=== PATIENT | female | born 1960 | race Caucasian/White ===

== ENCOUNTER 2018-12-12 09:58 | Inpatient (IN) | payer OTHER ==
--- NOTE | 2018-12-12 10:39 | PDOC ---
History of Present Illness - General Chief Complaint: Wound Stated Complaint: MRSA Time Seen by Provider: 12/12/18 10:27 - History of Present Illness Initial Comments: 12/12/18 10:35 58 yo F DM, Obesity, who p/w right lower leg wound. Patient reports 2 weeks of progressive, enlarging right reis wound, with absent drainage or discharge. Wound started off as "knick," and progressed to quarter size. Patient also endorses sharp pain at wound site, worse with touch. Patient following with Dr. Becerril for chronic non healing venous stasis ulcer. Referred to ED today for IV antibiotics following failed outpt. management, Patient with home Levaquin (). last dose 12/09/18. Bactroban to RLE BID. MRSA from RLE wound (12/05/18 ) with sensitivities to Daptomycin, Clindamycin, Vancomycin. Patient denies GIBBONS, vision change, palpitations, cough, wheezing, orthopena, PND , N/V, F,C, CP, SOB, urinary complaints, hematuria, BPR, abdominal pain, diarrhea, constipation, lightheadedness, weakness, sensory changes. PMHx: as noted above ROS: as noted SHx: Marijuanna once a day. Denies Etoh, IVDA, tobacco use Allergies: NKDA PMD: Dr. Jermaine Velasco Vascular: Dr. Becerril Past History - Past Medical History Allergies/Adverse Reactions: Allergies Allergy/AdvReac Type Severity Reaction Status Date / Time adhesive tape AdvReac Intermediate Hives Verified 12/12/18 10:04 Home Medications: Ambulatory Orders Atorvastatin Ca 1 tab PO HS 04/10/16 Calcium Magnesium + D Tablet 1 tab PO DAILY 04/10/16 Enalapril Maleate 5 mg PO DAILY 04/10/16 Furosemide 40 mg PO BID 04/10/16 Metformin HCl 500 mg PO BID 04/10/16 Multivitamin 1 tab PO DAILY 04/10/16 Mupirocin Cream [Bactroban 2% Cream -] 1 applic TP BID #1 tube 12/05/18 Gabapentin [Neurontin -] 300 mg PO TID 12/09/18 Insulin Lispro Protamin/Lispro [Humalog Mix 75-25 Kwikpen] 50 unit SQ BID Magnesium Oxide [Magnesium] 400 mg PO ASDIR 12/12/18 Mv-Min/FA/Vit K/Lycop/Lut/Zeax [Ocuvite Eye + Multi Tablet] 1 each PO ASDIR 01/23 [place]-3S/Dha/Epa/Fish Oil/D3 [[place]-3 + D Softgel] 1 each PO DAILY 12/12/18 COPD: No Diabetes: Yes Hypercholesterolemia: Yes Other medical history: morbid obese - Suicide/Smoking/Psychosocial Hx Smoking History: Never smoked Have you smoked in the past 12 months: No Hx Alcohol Use: No Drug/Substance Use Hx: Yes (marijuana) Review of Systems - Review of Systems Comments:: 12/12/18 10:36 GENERAL/CONSTITUTIONAL: No fever or chills. No weakness. HEAD, EYES, EARS, NOSE AND THROAT: No change in vision. No ear pain or discharge. No sore throat. CARDIOVASCULAR: No chest pain or shortness of breath RESPIRATORY: No cough, wheezing, or hemoptysis. GASTROINTESTINAL: No nausea, vomiting, diarrhea or constipation. GENITOURINARY: No dysuria, frequency, or change in urination. MUSCULOSKELETAL: No joint or muscle swelling or pain. No neck or back pain. SKIN: + r leg wound and pain NEUROLOGIC: No headache, vertigo, loss of consciousness, or change in strength/ sensation. ENDOCRINE: No increased thirst. No abnormal weight change HEMATOLOGIC/LYMPHATIC: No anemia, easy bleeding, or history of blood clots. ALLERGIC/IMMUNOLOGIC: No hives or skin allergy. *Physical Exam - Vital Signs Last Vital Signs Temp Pulse Resp BP Pulse Ox 98.2 F 64 18 135/62 97 12/12/18 10:01 12/12/18 10:01 12/12/18 10:01 12/12/18 10:01 12/12/18 10:01 - Physical Exam Comments: 12/12/18 10:36 GENERAL: Awake, alert, and fully oriented, in no acute distress HEAD: No signs of trauma, normocephalic, atraumatic EYES: PERRLA, EOMI, sclera anicteric, conjunctiva clear ENT: Auricles normal inspection, hearing grossly normal, nares patent, oropharynx clear without exudates. Moist mucosa NECK: Normal ROM, supple, no lymphadenopathy, JVD, or masses LUNGS: No distress, speaks full sentences, clear to auscultation bilaterally HEART: Regular rate and rhythm, normal S1 and S2, no murmurs, rubs or gallops, peripheral pulses normal and equal bilaterally. ABDOMEN: Soft, nontender, normoactive bowel sounds. No guarding, no rebound. No masses EXTREMITIES : Normal inspection, Normal range of motion, no edema. No clubbing or cyanosis. NEUROLOGICAL: Cranial nerves II through XII grossly intact. Normal speech, normal gait, no focal sensorimotor deficits SKIN: + superficial 2 x 4 Right anterior tib/fib lesion, with absent subcutaneous involvement, undermining, tunneling of margins. + surrounding erythema, with warmth, and ttp. Asbent fluctuance, drainage, discharge, crepitus, streaking. Skin otherwise warm, Dry, normal turgor, no rashes or lesions noted ED Treatment Course - LABORATORY CBC & Chemistry Diagram: 12/14/18 06:40 12/14/18 06:40 Medical Decision Making - Medical Decision Making 12/12/18 10:48 58 yo F DM, Obesity, who p/w right lower leg wound. Vitals wnl, AF, A&Ox3. 0/4 SIRS criteria. Patient with non healing RLE wound, failed outpt. antibiotics, MRSA. Physical exam notable for + superficial 2 x 4 Right anterior tib/fib lesion, with absent subcutaneous involvement, undermining, tunneling of margins. + surrounding erythema, with warmth, and ttp. Neg streaking. no evidence lymhangitic spread. RLE neurovascularly intact. Will assess for nec fasc., osteomyelitis, gangrene, abscess. +. Patient will likely require admission for wound with surrounding cellulitis and h/o DM, failed outpt. management. Ed Course: 12/12/18 13:03 Laboratory Tests 12/12/18 12/12/18 11:45 11:45 WBC 9.4 Hgb 13.2 Hct 39.8 Plt Count 274 Sodium 145 Potassium 4.0 Anion Gap 6 L BUN 13.7 Creatinine 0.6 Random Glucose 73 L Vanc/Zosyn Patient endorsed to Dr. Crump 12/12/18 13:26 Patient endorsed and admitted to Dr. Vicky velasco. *DC/Admit/Observation/Transfer Diagnosis at time of Disposition: Venous stasis ulcer Non-healing wound of lower extremity Qualifiers: Encounter type: initial encounter Laterality: right Qualified Code(s): S81.801A - Unspecified open wound, right lower leg, initial encounter - Discharge Dispostion Condition at time of disposition: Stable Decision to Admit order: Yes - Referrals - Patient Instructions - Post Discharge Activity
--- NOTE | 2018-12-12 12:15 | PDOC ---
Documentation entered by Merlene Boothe SCRIBE, acting as scribe for Terry Patino MD. Terry Patino MD: This documentation has been prepared by the scribe, Merlene Boothe SCRIBE, under my direction and personally reviewed by me in its entirety. I confirm that the documentation accurately reflects all work, treatment, procedures, and medical decision making performed by me. Attending Attestation - Resident Resident Name: Reggie Morrissey - ED Attending Attestation I have performed the following: I have examined & evaluated the patient, The case was reviewed & discussed with the resident, I agree w/resident's findings & plan, Exceptions are as noted - HPI HPI: 12/12/18 11:48 The patient is a 58-year-old female, with a past medical history of DM and morbid obesity, who presents to the ED with a chronic nonhealing venous stasis ulcer to the RT lower anterior leg. The patient has been following up [facility]. Wound cultures taken on 12/05 were +MRSA and showed sensitivity to Daptomycin, Clindamycin, and Vancomycin. Patient was placed on a course of Levaquin and has been applying Bactroban to the wound. The patient was seen in Dr. Resendiz office today and was sent to the ED for admission for IV antibiotics. Patient states that the wound started off as a knick and has been growing in size over the past 2 weeks. The patient denies fevers, chills, nausea, vomiting, diarrhea, or abdominal pain. Denies any chest pain, palpitations or shortness of breath. Denies any weakness, dizziness, or changes in strength or sensation. Allergies: NKDA, adhesive tape. Social History: Reports daily marijuana use. Denies any tobacco, alcohol, or drug use. Surgical History: None reported. PCP: Dr. Jermaine Velasco Vascular: Dr. Becerril - Physicial Exam PE: 12/13/18 14:42 see above - Medical Decision Making 12/12/18 11:56 58y F hx of morbid obesity, dm, presents with worsening pain and non healing wound on the R reis sp minor trauma, has been evaluated by wound care and sent to the ED for further evaluation and possible admission for iv abx and failure of out patient mangaement. Pt denies any fever/chills, nv, abd pain, cp, sob, lightheadedness. on exam: GENERAL: The patient is awake, alert, and fully oriented, Nontoxic - in no acute distress. morbidly obese HEAD: Normocephalic, atraumatic. EYES: extraocular movements intact, sclera anicteric, conjunctiva clear. ENT: Normal voice, Moist mucous membranes. NECK: Normal range of motion, supple ABDOMEN: Soft, nontender, No guarding, no rebound. No CVA tenderness EXTREMITIES: Normal range of motion, +erythema anterior reis and ttp with surrounding induration, no streaking proximally NEUROLOGICAL: No facial assymetry, Normal speech, PSYCH: Normal mood, normal affect. SKIN: Warm, Dry, normal turgor, will obtain labs/cultures tibfib xray to ro osteo will consult loretta per dr. resendiz request will admit for iv abx and failure of outptient tx Heart Score/ECG Review - ECG Impressions Comment:: 12/12/18 13:56 Twelve-lead EKG was performed and reviewed by me. There is normal sinus rhythm with a normal rate. rate of 60 The axis is normal. The intervals are normal. abnormal R wave progression
[2018-12-12 12:16] LABS: BASO % 0.6 % (0-2.0); EOS % 1.5 % (0-4.5); HEMATOCRIT 39.8 % (32.4-45.2); HEMOGLOBIN 13.2 GM/dL (10.7-15.3); MCH 29.7 pg (25.7-33.7); MCHC 33.3 g/dl (32.0-36.0); MEAN CELL VOLUME 89.4 fl (80-96); MONO % 7.8 % (3.8-10.2); NEUT % 69.1 % (42.8-82.8); PLATELET COUNT 274 K/MM3 (134-434); RBC 4.46 M/mm3 (3.60-5.2); RDW 13.9 % (11.6-15.6); WHITE BLOOD COUNT 9.4 K/mm3 (4.0-10.0)
[2018-12-12 12:26] LABS: INR 1.01 (0.83-1.09); PROTHROMBIN TIME (PATIENT) 11.9 SEC (9.7-13.0)
[2018-12-12 12:46] LABS: ALBUMIN 3.3 g/dl (3.4-5.0); BILIRUBIN,TOTAL 0.3 mg/dL (0.2-1); BLOOD UREA NITROGEN 13.7 mg/dL (7-18); CALCIUM 8.7 mg/dL (8.5-10.1); CREATININE 0.6 mg/dL (0.55-1.3); TOT PROT 6.6 g/dl (6.4-8.2)
[2018-12-12] MEDS ORDERED: PIPERACILLIN/TAZOB 4.5 GM 4.5 GM in DEXTROSE 5%-WATER 100 ML IVPB ONE (13:03)
[2018-12-12] MEDS ORDERED: VANCOMYCIN 1 GM in D5W (PRE-DOCKED) 1,000 MG/250 ML IVPB ONE (13:03)
[2018-12-12] MEDS ORDERED: PIPERACILLIN/TAZOB 4.5 GM 4.5 GM/100 ML BAG IVPB ONE (13:12)
[2018-12-12] MEDS ORDERED: VANCOMYCIN 1 GRAM (PRE-DOCKED) 1,000 MG/250 ML BAG IVPB ONE (13:12)
--- NOTE | 2018-12-12 13:20 | CON.ID ---
Consult Consult Specialty:: infectious diseases Referred by:: dr cotto Reason for Consultation:: non healing ulcer of the leg,with cellulitis and swelling - History of Present Illness Chief Complaint: pain and swelling of the leg History of Present Illness: 58 yo F DM, Obesity, who p/w right lower leg wound. Patient reports 2 weeks of progressive, enlarging right reis wound, with absent drainage or discharge. Wound started off as "knick," and progressed to quarter size. Patient also endorses sharp pain at wound site, worse with touch. Patient following with Dr. Cotto for chronic non healing venous stasis ulcer. Referred to ED today for IV antibiotics following failed outpt. management, Patient with home Levaquin (). last dose 12/09/18. Bactroban to RLE BID. MRSA from RLE wound (12/05/18 ) patient has compromised leg and is morbidly obese - History Source History Provided By: Patient Limitations to Obtaining History: No Limitations - Alcohol/Substance Use Hx Alcohol Use: No - Smoking History Smoking history: Never smoked Have you smoked in the past 12 months: No Home Medications - Allergies Allergies/Adverse Reactions: Allergies Allergy/AdvReac Type Severity Reaction Status Date / Time adhesive tape AdvReac Intermediate Hives Verified 12/12/18 10:04 - Home Medications Home Medications: Ambulatory Orders Atorvastatin Ca 1 tab PO HS 04/10/16 Calcium Magnesium + D Tablet 1 tab PO DAILY 04/10/16 Enalapril Maleate 5 mg PO DAILY 04/10/16 Furosemide 40 mg PO BID 04/10/16 Metformin HCl 500 mg PO BID 04/10/16 Multivitamin 1 tab PO DAILY 04/10/16 Mupirocin Cream [Bactroban 2% Cream -] 1 applic TP BID #1 tube 12/05/18 Gabapentin [Neurontin -] 300 mg PO TID 12/09/18 Insulin Lispro Protamin/Lispro [Humalog Mix 75-25 Kwikpen] 50 unit SQ BID Magnesium Oxide [Magnesium] 400 mg PO ASDIR 12/12/18 Mv-Min/FA/Vit K/Lycop/Lut/Zeax [Ocuvite Eye + Multi Tablet] 1 each PO ASDIR 01/23 [place]-3S/Dha/Epa/Fish Oil/D3 [[place]-3 + D Softgel] 1 each PO DAILY 12/12/18 Review of Systems - Review of Systems Constitutional: reports: No Symptoms Eyes: reports: No Symptoms HENT: reports: No Symptoms Neck: reports: No Symptoms Cardiovascular: reports: No Symptoms Respiratory: reports: No Symptoms Gastrointestinal: reports: No Symptoms Genitourinary: reports: No Symptoms Musculoskeletal: reports: No Symptoms Integumentary: reports: Change in Color, Erythema, Wound Neurological: reports: No Symptoms Endocrine: reports: No Symptoms Hematology/Lymphatic: reports: No Symptoms Psychiatric: reports: No Symptoms Physical Exam Vital Signs: Vital Signs Temperature 98.2 F 12/12/18 10:01 Pulse Rate 64 12/12/18 10:01 Respiratory Rate 18 12/12/18 10:01 Blood Pressure 135/62 12/12/18 10:01 O2 Sat by Pulse Oximetry (%) 97 12/12/18 10:01 Constitutional: Yes: Well Nourished, Calm, Mild Distress, Obese Cardiovascular: Yes: Regular Rate and Rhythm Respiratory: Yes: Regular, CTA Bilaterally Gastrointestinal: Yes: Normal Bowel Sounds, Soft Musculoskeletal: Yes: WNL Extremities: Yes: Other (wound preent) Integumentary: Yes: Erythema, Other Wound/Incision: Yes: Open to air Neurological: Yes: Alert, Oriented Psychiatric: Yes: Alert, Oriented Labs: CBC, BMP 12/12/18 11:45 12/12/18 11:45 Imaging - Results Chest X-ray: Report Reviewed, Image Reviewed X-ray: Report Reviewed, Image Reviewed Assessment/Plan Problem List - Problems (1) Diabetic leg 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 Code(s): E10.622 - TYPE 1 DIABETES MELLITUS WITH OTHER SKIN ULCER; L97.909 - NON -PRS CHRONIC ULC UNSP PRT OF UNSP LOW LEG W UNSP SEVERITY (2) Insulin dependent diabetes mellitus Code(s): E11.9 - TYPE 2 DIABETES MELLITUS WITHOUT COMPLICATIONS; Z79.4 - DATA SUPPORT SPECIALIST (CURRENT) USE OF INSULIN (3) Morbid obesity Code(s): E66.01 - MORBID (SEVERE) OBESITY DUE TO EXCESS CALORIES (4) Osteoarthritis of knees, bilateral Code(s): M17.0 - BILATERAL PRIMARY OSTEOARTHRITIS OF KNEE patients cx reports noted i am going to start patient on vanc and zosyn might stop the zosyn tomorrow wound care rest as per the team
--- NOTE | 2018-12-12 16:06 | HP ---
Admitting History and Physical - Primary Care Physician PCP: Jermaine Velasco - Admission History of Present Illness: Pt seen/ examined Well known to me Was send to Wound care by me form office . +ve MRSA wound cultures Failed out pt therapy NOw admitted for i/v abx Discussed with er resident and I also concur with er Documentation as below 58 yo F DM, Obesity, who p/w right lower leg wound. Patient reports 2 weeks of progressive, enlarging right reis wound, with absent drainage or discharge. Wound started off as "knick," and progressed to quarter size. Patient also endorses sharp pain at wound site, worse with touch. Patient following with Dr. Becerril for chronic non healing venous stasis ulcer. Referred to ED today for IV antibiotics following failed outpt. management, Patient with home Levaquin (). last dose 12/09/18. Bactroban to RLE BID. MRSA from RLE wound (12/05/18 ) with sensitivities to Daptomycin, Clindamycin, Vancomycin. Patient denies GIBBONS, vision change, palpitations, cough, wheezing, orthopena, PND , N/V, F,C, CP, SOB, urinary complaints, hematuria, BPR, abdominal pain, diarrhea, constipation, lightheadedness, weakness, sensory changes. History Source: Patient Limitations to Obtaining History: No Limitations - Past Medical History [employer]: Yes: Other (morbid obesity) Musculoskeletal: Yes: Osteoarthritis (knees) Endocrine: Yes: Diabetes Mellitus - Smoking History Smoking history: Never smoked Have you smoked in the past 12 months: No - Alcohol/Substance Use Hx Alcohol Use: No History of Substance Use: reports: Marijuana (smokes daily) - Social History ADL: Independent Home Medications - Allergies Allergies/Adverse Reactions: Allergies Allergy/AdvReac Type Severity Reaction Status Date / Time adhesive tape AdvReac Intermediate Hives Verified 12/12/18 10:04 - Home Medications Home Medications: Ambulatory Orders Atorvastatin Ca 1 tab PO HS 04/10/16 Calcium Magnesium + D Tablet 1 tab PO DAILY 04/10/16 Enalapril Maleate 5 mg PO DAILY 04/10/16 Furosemide 40 mg PO BID 04/10/16 Metformin HCl 500 mg PO BID 04/10/16 Multivitamin 1 tab PO DAILY 04/10/16 Mupirocin Cream [Bactroban 2% Cream -] 1 applic TP BID #1 tube 12/05/18 Gabapentin [Neurontin -] 300 mg PO TID 12/09/18 Insulin Lispro Protamin/Lispro [Humalog Mix 75-25 Kwikpen] 50 unit SQ BID Magnesium Oxide [Magnesium] 400 mg PO ASDIR 12/12/18 Mv-Min/FA/Vit K/Lycop/Lut/Zeax [Ocuvite Eye + Multi Tablet] 1 each PO ASDIR 01/23 [place]-3S/Dha/Epa/Fish Oil/D3 [[place]-3 + D Softgel] 1 each PO DAILY 12/12/18 Review of Systems - Review of Systems Constitutional: reports: No Symptoms Eyes: reports: No Symptoms Neck: reports: No Symptoms Cardiovascular: reports: No Symptoms Respiratory: reports: No Symptoms Gastrointestinal: reports: No Symptoms Genitourinary: reports: No Symptoms Musculoskeletal: reports: Extremity Pain, Joint Pain (knees) Neurological: reports: No Symptoms Endocrine: reports: No Symptoms Psychiatric: reports: No Symptoms Pain Intensity: 7 Physical Examination Vital Signs: Vital Signs Temperature 97.7 F 12/12/18 13:58 Pulse Rate 63 12/12/18 13:58 Respiratory Rate 18 12/12/18 13:58 Blood Pressure 128/68 12/12/18 13:58 O2 Sat by Pulse Oximetry (%) 98 12/12/18 13:58 Constitutional: Yes: No Distress, Obese Eyes: Yes: Conjunctiva Clear Cardiovascular: Yes: Regular Rate and Rhythm Respiratory: Yes: CTA Bilaterally Gastrointestinal: Yes: Abdomen, Obese Wound/Incision: Yes: Dressing Dry and Intact Neurological: Yes: Alert Psychiatric: Yes: Alert Labs: CBC, BMP 12/12/18 11:45 12/12/18 11:45 Imaging - Results Chest X-ray: Report Reviewed X-ray: Report Reviewed Problem List - Problems (1) Diabetic leg 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 Code(s): E10.622 - TYPE 1 DIABETES MELLITUS WITH OTHER SKIN ULCER; L97.909 - NON -PRS CHRONIC ULC UNSP PRT OF UNSP LOW LEG W UNSP SEVERITY (2) Insulin dependent diabetes mellitus Code(s): E11.9 - TYPE 2 DIABETES MELLITUS WITHOUT COMPLICATIONS; Z79.4 - PLASMA SPECIALIST (CURRENT) USE OF INSULIN (3) Morbid obesity Code(s): E66.01 - MORBID (SEVERE) OBESITY DUE TO EXCESS CALORIES (4) Osteoarthritis of knees, bilateral Code(s): M17.0 - BILATERAL PRIMARY OSTEOARTHRITIS OF KNEE Assessment/Plan Discussed with Pt Mrsa PRECAUTIONS Abx per i/d local care Discussed with Dr. Becerril also meds orders written monitor bgm. pain control dvt prophylaxis stella order x rays of knees also and consult ortho for knee pain/ arthritis. will follow P. S -- pt has u/s legs 12/09/18 done -- Report still pending -- will request Radiology for report Will follow
[2018-12-12] MEDS: ENALAPRIL MALEATE 5 MG TABLET (FP) PO SCH (17:01)
[2018-12-12] MEDS: CALCIUM 500MG/VIT-D 200 UNITS COMBO TABLET (FP) PO SCH (17:01)
[2018-12-12] MEDS: oxyCODONE HCL 5 MG TABLET PO PRN ×2 (17:02→23:41)
[2018-12-12] MEDS: ACETAMINOPHEN 325 MG TABLET (FP) PO PRN (17:03)
[2018-12-12] MEDS: INSULIN SLIDING SCALE (NOVOLOG) 1 VIAL SQ SCH (17:06)
--- NOTE | 2018-12-12 18:43 | PN ---
Progress Note (short form) - Note Progress Note: Vascular Surgery Pt sent to ER from vascular clinic today. Cx's of her right reis wound showed MRSA. admitted for IV antiobiotics. ID on case. Please place bactroban to wound daily. Toney Becerril DO
[2018-12-12] MEDS: INSULIN (NOVOLOG MIX 70/30) 100 UNITS/ML MDV SQ SCH (21:34)
[2018-12-12] MEDS: ATORVASTATIN CA 10 MG TABLET (FP) PO SCH (21:35)
[2018-12-12] MEDS: GABAPENTIN 300 MG CAPSULE (FP) PO SCH (21:35)
[2018-12-12] MEDS ORDERED: PATIENT'S OWN MEDICATION (NON-FORMULARY) (Insulin Lispro Protamin/Lispro [Humalog Mix 75-2 SQ SCH (22:00)
[2018-12-12] MEDS ORDERED: ATORVASTATIN CA PO SCH (22:00)
[2018-12-12] MEDS: MUPIROCIN CA 2% TOPICAL CREAM 15 GM TUBE TP SCH (23:50)
[2018-12-13] MEDS: GABAPENTIN 300 MG CAPSULE (FP) PO SCH ×3 (05:52→21:40)
[2018-12-13] MEDS: oxyCODONE HCL 5 MG TABLET PO PRN ×2 (05:52→14:05)
[2018-12-13] MEDS: FUROSEMIDE 40 MG TABLET (FP) PO SCH ×2 (05:52→14:05)
[2018-12-13] MEDS: INSULIN SLIDING SCALE (NOVOLOG) 1 VIAL SQ SCH ×2 (06:35→17:23)
[2018-12-13 07:48] LABS: BASO % 0.5 % (0-2.0); EOS % 3.7 % (0-4.5); HEMATOCRIT 38.3 % (32.4-45.2); HEMOGLOBIN 12.6 GM/dL (10.7-15.3); LYMPH % 22.2 % (8-40); MCH 29.8 pg (25.7-33.7); MCHC 32.9 g/dl (32.0-36.0); MEAN CELL VOLUME 90.6 fl (80-96); MONO % 8.1 % (3.8-10.2); NEUT % 65.5 % (42.8-82.8); PLATELET COUNT 253 K/MM3 (134-434); RBC 4.23 M/mm3 (3.60-5.2); RDW 14.2 % (11.6-15.6); WHITE BLOOD COUNT 7.6 K/mm3 (4.0-10.0)
--- NOTE | 2018-12-13 08:08 | CONSULT ---
Consult - text type - Consultation Consultation Note: ORTHOPEDIC SURGERY CONSULTATION NOTE Department of Orthopedic Surgery HISTORY OF PRESENT ILLNESS Ms. Hill is a 58-year-old female, with a past medical history of DM and super morbid obesity, who presents to the ED from home with a chronic nonhealing venous stasis ulcer to the RT lower anterior leg and was admitted for IV antibiotics. Wound cultures taken on 12/05 were +MRSA and showed sensitivity to Daptomycin, Clindamycin, and Vancomycin. Patient states that the wound started off as a knick and has been growing in size over the past 2 weeks. The patient denies fevers, chills, nausea, vomiting, diarrhea, or abdominal pain. Denies any chest pain, palpitations or shortness of breath. Denies any weakness, dizziness, or changes in strength or sensation. The patient states she has had right knee pain for the past several years. Denies tobacco use, drug use, alcohol abuse. FAMILY HISTORY non-contributory REVIEW OF SYMPTOMS A twelve-point review of systems was performed and was negative except as noted in HPI. PHYSICAL EXAM Constitutional: Alert and oriented to person, place, and time. Appears well- developed and well-nourished. No acute distress, appropriate mood and affect. Right Lower Extremity: Skin warm, dry, and intact; There is a lesion of the distal tibia that is being treated by wound care currently. No erythema. Muscle mass equal and symmetric to contralateral side. No atrophy noted. No masses or effusions noted. Tender to palpation at the right knee medial and lateral joint space. nontender throughout rest of extremity. No cords or calf tenderness. No significant calf/ankle edema. Passive and active ROM of the knee from 0-90, free from pain. Joints stable with no pathologic laxity. EHL/TA/GS motor intact ; SILT distally; 2+ DP pulses; Cap refill brisk. Tone and reflexes normal. Left Lower Extremity: Skin warm, dry, and intact; no lesions, rashes or ulcers noted. No erythema or signs of infection or septic joint. Muscle mass equal and symmetric to contralateral side. No atrophy noted. No masses or effusions noted. Tender to palpation at the medial joint line of the knee; nontender throughout rest of extremity. No cords or calf tenderness No significant calf/ankle edema. Passive and active ROM of the knee from 0-90, free from pain. Joints stable with no pathologic laxity. EHL/TA/GS motor intact ; SILT distally; 2+ DP pulses; Cap refill brisk. Tone and reflexes normal. 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 Diabetes Mellitus Social History Smoking history Never smoked Hx Alcohol Use No History of Substance Use Marijuana ADL Independent Allergies Allergy/AdvReac Type Severity Reaction Status Date / Time adhesive tape AdvReac Intermediate Hives Verified 12/12/18 10:04 Active Medications Generic Name Dose Route Start Last Admin Trade Name Freq PRN Reason Stop Dose Admin Acetaminophen 650 mg 12/12/18 15:52 12/12/18 17:03 Tylenol - PO 650 mg Q4H PRN Administration PAIN LEVEL 1-5 Atorvastatin Calcium 10 mg 12/12/18 22:00 12/12/18 21:35 Lipitor - PO 10 mg HS CRISTINE Administration Calcium Carbonate/Cholecalciferol 1 tab 12/12/18 16:15 12/12/18 17:01 Os-Chano 500+D - PO 1 tab DAILY CRISTINE Administration Enalapril Maleate 5 mg 12/12/18 16:15 12/12/18 17:01 Vasotec - PO 5 mg DAILY CRISTINE Administration Enoxaparin Sodium 40 mg 12/13/18 10:00 Lovenox - SQ DAILY CRISTINE Furosemide 40 mg 12/13/18 06:00 12/13/18 05:52 Lasix - PO 40 mg BIDLASIX C[facility]STINE Administration Gabapentin 300 mg 12/12/18 22:00 12/13/18 05:52 Neurontin - PO 300 mg TID CRISTINE Administration Vancomycin HCl 1,250 mg/ 250 mls @ 250 mls/2 hr 12/13/18 10:00 Dextrose IVPB Q24H [facility] Protocol Insulin Aspart 1 vial 12/12/18 16:30 12/13/18 06:35 Novolog Vial Sliding Scale - SQ Not Given BIDAC [facility] Protocol Insulin Aspart 50 units 12/12/18 22:00 12/12/18 21:34 Novolog Mix 70/30 Vial SQ 50 units BID@0700,2200 [facility] Administration Mupirocin 1 applic 12/12/18 22:00 12/12/18 23:50 Bactroban 2% Cream - TP 1 applic BID C[facility]STINE Administration Oxycodone HCl 5 mg 12/12/18 15:52 12/13/18 05:52 Roxicodone - PO 5 mg Q6H PRN Administration PAIN LEVEL 6-10 Vital Signs (last) Temp Pulse Resp BP Pulse Ox 97.9 F 62 20 134/70 98 12/13/18 05:34 12/13/18 05:34 12/13/18 05:34 12/13/18 05:34 12/12/18 21:00 Intake and Output 12/11/18 12/12/18 12/13/18 23:59 23:59 23:59 Intake Total 700 200 Balance 700 200 Intake: IVPB 300 Oral 400 200 Other: Voiding Method Toilet Bowel Movement No Weight 434 lb 2 oz Height 5 ft 1 in Body Mass Index (BMI) 82.0 Weight [facility] Measurement Method Est/Stated by Patient PT with INR 11.90 SEC (9.7-13.0) 12/12/18 11:45 IMAGING I personally reviewed all radiograps of the right tib/fib; They demonstrate advanced osteoarthritis of the right knee. Bilateral knee x-rays pending. ASSESSMENT AND PLAN Ms. Hill is a 58 year old female presenting with a non-healing right distal tibia wound being treated with antibiotics by wound care team, with bilateral knee osteoarthritis. No signs of septic joints. We have reviewed the imaging and clinical findings in detail, as well as their potential implications. After appropriate informed discussion, we have agreed on the following plan: - Pain Control - DVT ppx - WBAT / PT - Continue wound care - Continue medical management (Abx, decubiti precautions, nutrition etc.) - Follow up knee x-rays - Will follow. All questions were answered. Thank you for involving our team in the care of this patient.
[2018-12-13 08:09] LABS: CHOLESTEROL 185 mg/dL (50-200); HDL CHOLESTEROL 41 mg/dL (40-60); TRIGLYCERIDES 133 mg/dL (0-150)
[2018-12-13 08:31] LABS: BILIRUBIN,TOTAL 0.4 mg/dL (0.2-1); BLOOD UREA NITROGEN 12.9 mg/dL (7-18); CALCIUM 8.2 mg/dL (8.5-10.1); CREATININE 0.7 mg/dL (0.55-1.3); TOT PROT 6.2 g/dl (6.4-8.2)
[2018-12-13 09:25] LABS: URINE APPEARANCE CLEAR; URINE BILIRUBIN NEGATIVE (NEGATIVE); URINE COLOR YELLOW; URINE GLUCOSE (UA) NEGATIVE (NEGATIVE); URINE KETONE NEGATIVE (NEGATIVE); URINE LEUK ESTERASE NEGATIVE (NEGATIVE); URINE NITRITE NEGATIVE (NEGATIVE); URINE PROTEIN NEGATIVE (NEGATIVE); URINE UROBILINOGEN 0.2 mg/dL (0.2-1.0)
[2018-12-13] MEDS ORDERED: INSULIN (NOVOLOG) ASPART 100 UNITS/ML 10ML VIAL ONE (11:25)
[2018-12-13] MEDS: ENALAPRIL MALEATE 5 MG TABLET (FP) PO SCH (11:33)
[2018-12-13] MEDS: ENOXAPARIN NA (PORCINE) 40 MG/0.4 ML DISP.SYRIN SQ SCH (11:34)
[2018-12-13] MEDS: CALCIUM 500MG/VIT-D 200 UNITS COMBO TABLET (FP) PO SCH (11:34)
[2018-12-13] MEDS: MUPIROCIN CA 2% TOPICAL CREAM 15 GM TUBE TP SCH ×2 (11:34→21:39)
[2018-12-13] MEDS: VANCOMYCIN HCL 1,250 MG in DEXTROSE 5%-WATER - 250 ML IVPB SCH (11:35)
--- NOTE | 2018-12-13 11:39 | PN ---
Progress Note, Physician History of Present Illness: still red tenderness present - Current Medication List Current Medications: Active Medications Acetaminophen (Tylenol -) 650 mg PO Q4H PRN PRN Reason: PAIN LEVEL 1-5 Last Admin: 12/12/18 17:03 Dose: 650 mg Atorvastatin Calcium (Lipitor -) 10 mg PO HS [facility] Last Admin: 12/12/18 21:35 Dose: 10 mg Calcium Carbonate/Cholecalciferol (Os-Chano 500+D -) 1 tab PO DAILY [facility] Last Admin: 12/12/18 17:01 Dose: 1 tab Enalapril Maleate (Vasotec -) 5 mg PO DAILY [facility] Last Admin: 12/12/18 17:01 Dose: 5 mg Enoxaparin Sodium (Lovenox -) 40 mg SQ DAILY [facility] Furosemide (Lasix -) 40 mg PO BIDLASIX [facility] Last Admin: 12/13/18 05:52 Dose: 40 mg Gabapentin (Neurontin -) 300 mg PO TID [facility] Last Admin: 12/13/18 05:52 Dose: 300 mg Vancomycin HCl 1,250 mg/ (Dextrose) 250 mls @ 250 mls/2 hr IVPB Q24H [facility]; Protocol Insulin Aspart (Novolog Vial Sliding Scale -) 1 vial SQ BIDAC [facility]; Protocol Last Admin: 12/13/18 06:35 Dose: Not Given Insulin Aspart (Novolog Mix 70/30 Vial) 50 units SQ BID@0700,2200 [facility] Last Admin: 12/12/18 21:34 Dose: 50 units Mupirocin (Bactroban 2% Cream -) 1 applic TP BID [facility] Last Admin: 12/12/18 23:50 Dose: 1 applic Oxycodone HCl (Roxicodone -) 5 mg PO Q6H PRN PRN Reason: PAIN LEVEL 6-10 Last Admin: 12/13/18 05:52 Dose: 5 mg - Objective Vital Signs: Vital Signs Temperature 97.9 F 12/13/18 05:34 Pulse Rate 62 12/13/18 05:34 Respiratory Rate 20 12/13/18 05:34 Blood Pressure 134/70 12/13/18 05:34 O2 Sat by Pulse Oximetry (%) 98 12/12/18 21:00 Constitutional: Yes: No Distress, Calm, Obese Cardiovascular: Yes: Regular Rate and Rhythm Respiratory: Yes: Regular, CTA Bilaterally Gastrointestinal: Yes: Normal Bowel Sounds, Soft Musculoskeletal: Yes: WNL Extremities: Yes: Erythema, Other Neurological: Yes: Alert, Oriented Psychiatric: Yes: Alert, Oriented Labs: CBC, BMP 12/13/18 07:20 12/13/18 07:20 INR, PTT INR 1.01 (0.83-1.09) 12/12/18 11:45 Assessment/Plan Problem List - Problems (1) Diabetic leg 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 Code(s): E10.622 - TYPE 1 DIABETES MELLITUS WITH OTHER SKIN ULCER; L97.909 - NON -PRS CHRONIC ULC UNSP PRT OF UNSP LOW LEG W UNSP SEVERITY (2) Insulin dependent diabetes mellitus Code(s): E11.9 - TYPE 2 DIABETES MELLITUS WITHOUT COMPLICATIONS; Z79.4 - CIRCLE EDGER (CURRENT) USE OF INSULIN (3) Morbid obesity Code(s): E66.01 - MORBID (SEVERE) OBESITY DUE TO EXCESS CALORIES (4) Osteoarthritis of knees, bilateral Code(s): M17.0 - BILATERAL PRIMARY OSTEOARTHRITIS OF KNEE plan we will continue vanco elevation of the leg wound care rest as per the team
[2018-12-13] MEDS: INSULIN (NOVOLOG MIX 70/30) 100 UNITS/ML MDV SQ SCH ×2 (11:59→21:40)
[2018-12-13] MEDS ORDERED: INSULIN (NOVOLOG MIX 70/30) 100 UNITS/ML MDV SQ ONE ×2 (12:07→21:45)
--- NOTE | 2018-12-13 12:08 | EKG ---
Test Reason : Blood Pressure : / mmHG Vent. Rate : 060 BPM Atrial Rate : 060 BPM P-R Int : 174 ms QRS Dur : 100 ms QT Int : 426 ms P-R-T Axes : 055 014 015 degrees QTc Int : 426 ms NORMAL SINUS RHYTHM LOW VOLTAGE QRS POSSIBLE ANTEROLATERAL INFARCT (CITED ON OR BEFORE 12-DEC-2018) ABNORMAL ECG WHEN COMPARED WITH ECG OF 02-JAN-2007 22:44, VENT. RATE HAS DECREASED BY 60 BPM NONSPECIFIC T WAVE ABNORMALITY, IMPROVED IN INFERIOR LEADS Confirmed by Nawaf Gaytan ([id number]) on 12/13/2018 12:07:43 PM Referred By: Confirmed By:Nawaf Gaytan
--- NOTE | 2018-12-13 12:10 | PN ---
Progress Note (short form) - Note Progress Note: events noted has pain in right lower reis wound noted+ Vital Signs - 24 hr 12/12/18 12/12/18 12/12/18 13:58 15:30 18:56 Temperature 97.7 F 97.7 F 98 F Pulse Rate 63 86 Pulse Rate [ 63 Right Brachial] Respiratory 18 18 20 Rate Blood Pressure 140/68 147/78 Blood Pressure 128/68 [Right Arm] O2 Sat by Pulse 98 98 Oximetry (%) 12/12/18 12/13/18 21:00 05:34 Temperature 97.9 F Pulse Rate 62 Pulse Rate [ Right Brachial] Respiratory 20 20 Rate Blood Pressure 134/70 Blood Pressure [Right Arm] O2 Sat by Pulse 98 Oximetry (%) Current Medications Generic Name Dose Route Start Last Admin Trade Name Freq PRN Reason Stop Dose Admin Acetaminophen 650 mg 12/12/18 15:52 12/12/18 17:03 Tylenol - PO 650 mg Q4H PRN Administration PAIN LEVEL 1-5 Atorvastatin Calcium 10 mg 12/12/18 22:00 12/12/18 21:35 Lipitor - PO 10 mg HS CRISTINE Administration Calcium Carbonate/Cholecalciferol 1 tab 12/12/18 16:15 12/13/18 11:34 Os-Chano 500+D - PO 1 tab DAILY [facility] Administration Enalapril Maleate 5 mg 12/12/18 16:15 12/13/18 11:33 Vasotec - PO 5 mg DAILY [facility] Administration Enoxaparin Sodium 40 mg 12/13/18 10:00 12/13/18 11:34 Lovenox - SQ 40 mg DAILY [facility] Administration Furosemide 40 mg 12/13/18 06:00 12/13/18 05:52 Lasix - PO 40 mg BIDLASIX [facility] Administration Gabapentin 300 mg 12/12/18 22:00 12/13/18 05:52 Neurontin - PO 300 mg TID [facility] Administration Vancomycin HCl 1,250 mg/ 250 mls @ 250 mls/2 hr 12/13/18 10:00 12/13/18 11:35 Dextrose IVPB 250 mls/2 hr Q24H [facility] Administration Protocol Insulin Aspart 1 vial 12/12/18 16:30 12/13/18 06:35 Novolog Vial Sliding Scale - SQ Not Given BIDAC [facility] Protocol Insulin Aspart 50 units 12/12/18 22:00 12/13/18 11:59 Novolog Mix 70/30 Vial SQ Not Given BID@0700,2200 [facility] Mupirocin 1 applic 12/12/18 22:00 12/13/18 11:34 Bactroban 2% Cream - TP 1 applic BID [facility] Administration Nystatin 1 applic 12/13/18 12:15 Mycostatin Cream - TP BID [facility] Oxycodone HCl 5 mg 12/12/18 15:52 12/13/18 05:52 Roxicodone - PO 5 mg Q6H PRN Administration PAIN LEVEL 6-10 Laboratory Results - last 24 hr 12/12/18 12/12/18 12/12/18 11:45 11:45 11:45 WBC 9.4 RBC 4.46 Hgb 13.2 Hct 39.8 MCV 89.4 MCH 29.7 MCHC 33.3 RDW 13.9 Plt Count 274 MPV 8.0 Absolute Neuts (auto) 6.5 Neutrophils % 69.1 Lymphocytes % 21.0 Monocytes % 7.8 Eosinophils % 1.5 Basophils % 0.6 Nucleated RBC % 0 ESR PT with INR 11.90 INR 1.01 Sodium 145 Potassium 4.0 Chloride 109 H Carbon Dioxide 30 Anion Gap 6 L BUN 13.7 Creatinine 0.6 Est GFR (CKD-EPI)AfAm 117.27 Est GFR (CKD-EPI)NonAf 101.18 POC Glucometer Random Glucose 73 L Hemoglobin A1c % Calcium 8.7 Total Bilirubin 0.3 AST 17 ALT 35 Alkaline Phosphatase 86 Total Protein 6.6 Albumin 3.3 L Triglycerides Cholesterol Total LDL Cholesterol HDL Cholesterol TSH Urine Color Urine Appearance Urine pH Ur Specific [place] Urine Protein Urine Glucose (UA) Urine Ketones Urine Blood Urine Nitrite Urine Bilirubin Urine Urobilinogen Ur Leukocyte Esterase 12/12/18 12/12/18 12/12/18 16:30 17:08 21:31 WBC RBC Hgb Hct MCV MCH MCHC RDW Plt Count MPV Absolute Neuts (auto) Neutrophils % Lymphocytes % Monocytes % Eosinophils % Basophils % Nucleated RBC % ESR 20 PT with INR INR Sodium Potassium Chloride Carbon Dioxide Anion Gap BUN Creatinine Est GFR (CKD-EPI)AfAm Est GFR (CKD-EPI)NonAf POC Glucometer 154 151 Random Glucose Hemoglobin A1c % Calcium Total Bilirubin AST ALT Alkaline Phosphatase Total Protein Albumin Triglycerides Cholesterol Total LDL Cholesterol HDL Cholesterol TSH Urine Color Urine Appearance Urine pH Ur Specific [place] Urine Protein Urine Glucose (UA) Urine Ketones Urine Blood Urine Nitrite Urine Bilirubin Urine Urobilinogen Ur Leukocyte Esterase 12/13/18 12/13/18 12/13/18 05:29 07:20 07:20 WBC 7.6 RBC 4.23 Hgb 12.6 Hct 38.3 MCV 90.6 MCH 29.8 MCHC 32.9 RDW 14.2 Plt Count 253 MPV 8.0 Absolute Neuts (auto) 5.0 Neutrophils % 65.5 Lymphocytes % 22.2 Monocytes % 8.1 Eosinophils % 3.7 D Basophils % 0.5 Nucleated RBC % 0 ESR PT with INR INR Sodium 145 Potassium 4.0 Chloride 109 H Carbon Dioxide 31 Anion Gap 5 L BUN 12.9 Creatinine 0.7 Est GFR (CKD-EPI)AfAm 111.47 Est GFR (CKD-EPI)NonAf 96.18 POC Glucometer 92 Random Glucose 113 H Hemoglobin A1c % Calcium 8.2 L Total Bilirubin 0.4 AST 16 ALT 34 Alkaline Phosphatase 82 Total Protein 6.2 L Albumin 3.0 L Triglycerides Cholesterol Total LDL Cholesterol HDL Cholesterol TSH 1.24 Urine Color Urine Appearance Urine pH Ur Specific [place] Urine Protein Urine Glucose (UA) Urine Ketones Urine Blood Urine Nitrite Urine Bilirubin Urine Urobilinogen Ur Leukocyte Esterase 12/13/18 12/13/18 12/13/18 07:20 07:20 07:30 WBC RBC Hgb Hct MCV MCH MCHC RDW Plt Count MPV Absolute Neuts (auto) Neutrophils % Lymphocytes % Monocytes % Eosinophils % Basophils % Nucleated RBC % ESR PT with INR INR Sodium Potassium Chloride Carbon Dioxide Anion Gap BUN Creatinine Est GFR (CKD-EPI)AfAm Est GFR (CKD-EPI)NonAf POC Glucometer Random Glucose Hemoglobin A1c % 7.0 H Calcium Total Bilirubin AST ALT Alkaline Phosphatase Total Protein Albumin Triglycerides 133 Cholesterol 185 Total LDL Cholesterol 131 H HDL Cholesterol 41 TSH Urine Color Yellow Urine Appearance Clear Urine pH 5.0 Ur Specific [place] 1.012 Urine Protein Negative Urine Glucose (UA) Negative Urine Ketones Negative Urine Blood Negative Urine Nitrite Negative Urine Bilirubin Negative Urine Urobilinogen 0.2 Ur Leukocyte Esterase Negative 12/13/18 11:39 WBC RBC Hgb Hct MCV MCH MCHC RDW Plt Count MPV Absolute Neuts (auto) Neutrophils % Lymphocytes % Monocytes % Eosinophils % Basophils % Nucleated RBC % ESR PT with INR INR Sodium Potassium Chloride Carbon Dioxide Anion Gap BUN Creatinine Est GFR (CKD-EPI)AfAm Est GFR (CKD-EPI)NonAf POC Glucometer 133 Random Glucose Hemoglobin A1c % Calcium Total Bilirubin AST ALT Alkaline Phosphatase Total Protein Albumin Triglycerides Cholesterol Total LDL Cholesterol HDL Cholesterol TSH Urine Color Urine Appearance Urine pH Ur Specific [place] Urine Protein Urine Glucose (UA) Urine Ketones Urine Blood Urine Nitrite Urine Bilirubin Urine Urobilinogen Ur Leukocyte Esterase S1 S2 RRR Lungs clear Morbid obesity Abd- soft, NT ext-- erythema lower right reis, ulcer noted+, tender fungal rash in folds PLAN Spoke with ID on iv vanco blood cultures pending wound care Ortho , vascular eval noted\ diabetic control Problem List - Problems (1) Diabetic leg 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 Code(s): E10.622 - TYPE 1 DIABETES MELLITUS WITH OTHER SKIN ULCER; L97.909 - NON -PRS CHRONIC ULC UNSP PRT OF UNSP LOW LEG W UNSP SEVERITY (2) Insulin dependent diabetes mellitus Code(s): E11.9 - TYPE 2 DIABETES MELLITUS WITHOUT COMPLICATIONS; Z79.4 - QUALITY OFFICER (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
[2018-12-13] MEDS: NYSTATIN 100,000 UNIT/GM TOPICAL CREAM 15 GM TUBE TP SCH ×2 (14:04→21:39)
[2018-12-13] MEDS: ATORVASTATIN CA 10 MG TABLET (FP) PO SCH (21:39)
[2018-12-14] MEDS: oxyCODONE HCL 5 MG TABLET PO PRN ×2 (01:30→14:33)
[2018-12-14] MEDS: GABAPENTIN 300 MG CAPSULE (FP) PO SCH ×3 (05:08→21:22)
[2018-12-14] MEDS: ACETAMINOPHEN 325 MG TABLET (FP) PO PRN ×2 (05:09→14:33)
[2018-12-14] MEDS: INSULIN SLIDING SCALE (NOVOLOG) 1 VIAL SQ SCH ×2 (06:15→17:19)
[2018-12-14] MEDS: FUROSEMIDE 40 MG TABLET (FP) PO SCH ×2 (06:15→14:03)
[2018-12-14] MEDS: INSULIN (NOVOLOG MIX 70/30) 100 UNITS/ML MDV SQ SCH ×2 (07:57→21:23)
[2018-12-14 08:26] LABS: BASO % 0.5 % (0-2.0); EOS % 3.5 % (0-4.5); HEMATOCRIT 38.7 % (32.4-45.2); HEMOGLOBIN 12.8 GM/dL (10.7-15.3); LYMPH % 27.7 % (8-40); MCH 29.7 pg (25.7-33.7); MCHC 33.1 g/dl (32.0-36.0); MEAN CELL VOLUME 89.5 fl (80-96); MEAN PLT VOLUME 8.1 fl (7.5-11.1); MONO % 8.7 % (3.8-10.2); NEUT % 59.6 % (42.8-82.8); PLATELET COUNT 265 K/MM3 (134-434); RBC 4.32 M/mm3 (3.60-5.2); RDW 13.5 % (11.6-15.6); WHITE BLOOD COUNT 6.6 K/mm3 (4.0-10.0)
[2018-12-14 08:39] LABS: BILIRUBIN,TOTAL 0.5 mg/dL (0.2-1); BLOOD UREA NITROGEN 10.2 mg/dL (7-18); CALCIUM 8.3 mg/dL (8.5-10.1); CREATININE 0.7 mg/dL (0.55-1.3); TOT PROT 6.2 g/dl (6.4-8.2)
[2018-12-14] MEDS: ENALAPRIL MALEATE 5 MG TABLET (FP) PO SCH (10:06)
[2018-12-14] MEDS: VANCOMYCIN HCL 1,250 MG in DEXTROSE 5%-WATER - 250 ML IVPB SCH (10:06)
[2018-12-14] MEDS: CALCIUM 500MG/VIT-D 200 UNITS COMBO TABLET (FP) PO SCH (10:06)
[2018-12-14] MEDS: ENOXAPARIN NA (PORCINE) 40 MG/0.4 ML DISP.SYRIN SQ SCH (10:06)
[2018-12-14] MEDS: NYSTATIN 100,000 UNIT/GM TOPICAL CREAM 15 GM TUBE TP SCH ×2 (10:07→21:28)
[2018-12-14] MEDS: MUPIROCIN CA 2% TOPICAL CREAM 15 GM TUBE TP SCH ×2 (10:07→21:22)
--- NOTE | 2018-12-14 11:19 | PN ---
Progress Note, Physician History of Present Illness: doing well no issues - Current Medication List Current Medications: Active Medications Acetaminophen (Tylenol -) 650 mg PO Q4H PRN PRN Reason: PAIN LEVEL 1-5 Last Admin: 12/14/18 05:09 Dose: 650 mg Atorvastatin Calcium (Lipitor -) 10 mg PO HS [facility] Last Admin: 12/13/18 21:39 Dose: 10 mg Calcium Carbonate/Cholecalciferol (Os-Chano 500+D -) 1 tab PO DAILY [facility] Last Admin: 12/14/18 10:06 Dose: 1 tab Enalapril Maleate (Vasotec -) 5 mg PO DAILY [facility] Last Admin: 12/14/18 10:06 Dose: 5 mg Enoxaparin Sodium (Lovenox -) 40 mg SQ DAILY [facility] Last Admin: 12/14/18 10:06 Dose: 40 mg Furosemide (Lasix -) 40 mg PO BIDLASIX [facility] Last Admin: 12/14/18 06:15 Dose: Not Given Gabapentin (Neurontin -) 300 mg PO TID [facility] Last Admin: 12/14/18 05:08 Dose: 300 mg Vancomycin HCl 1,250 mg/ (Dextrose) 250 mls @ 250 mls/2 hr IVPB Q24H [facility]; Protocol Last Admin: 12/14/18 10:06 Dose: 250 mls/2 hr Insulin Aspart (Novolog Vial Sliding Scale -) 1 vial SQ BIDAC [facility]; Protocol Last Admin: 12/14/18 06:15 Dose: Not Given Insulin Aspart (Novolog Mix 70/30 Vial) 52 units SQ BID@0700,2200 [facility] Last Admin: 12/14/18 07:57 Dose: 52 unit Mupirocin (Bactroban 2% Cream -) 1 applic TP BID [facility] Last Admin: 12/14/18 10:07 Dose: 1 applic Nystatin (Mycostatin Cream -) 1 applic TP BID [facility] Last Admin: 12/14/18 10:07 Dose: 1 applic Oxycodone HCl (Roxicodone -) 5 mg PO Q6H PRN PRN Reason: PAIN LEVEL 6-10 Last Admin: 12/14/18 01:30 Dose: 5 mg - Objective Vital Signs: Vital Signs Temperature 98.0 F 12/14/18 05:42 Pulse Rate 72 12/14/18 05:42 Respiratory Rate 18 12/14/18 05:42 Blood Pressure 140/93 12/14/18 05:42 O2 Sat by Pulse Oximetry (%) 98 12/13/18 21:00 Constitutional: Yes: No Distress, Calm, Obese Cardiovascular: Yes: S1, S2 Respiratory: Yes: Regular, CTA Bilaterally Gastrointestinal: Yes: Normal Bowel Sounds, Soft Musculoskeletal: Yes: WNL Extremities: Yes: Other Neurological: Yes: Alert, Oriented Psychiatric: Yes: Alert, Oriented Labs: CBC, BMP 12/14/18 06:40 12/14/18 06:40 INR, PTT INR 1.01 (0.83-1.09) 12/12/18 11:45 Assessment/Plan Problem List - Problems (1) Diabetic leg 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 Code(s): E10.622 - TYPE 1 DIABETES MELLITUS WITH OTHER SKIN ULCER; L97.909 - NON -PRS CHRONIC ULC UNSP PRT OF UNSP LOW LEG W UNSP SEVERITY (2) Insulin dependent diabetes mellitus Code(s): E11.9 - TYPE 2 DIABETES MELLITUS WITHOUT COMPLICATIONS; Z79.4 - HALFWAY (CURRENT) USE OF INSULIN (3) Morbid obesity Code(s): E66.01 - MORBID (SEVERE) OBESITY DUE TO EXCESS CALORIES (4) Osteoarthritis of knees, bilateral Code(s): M17.0 - BILATERAL PRIMARY OSTEOARTHRITIS OF KNEE plan we will continue vanco elevation of the leg wound care rest as per the team
--- NOTE | 2018-12-14 12:59 | PN ---
Progress Note (short form) - Note Progress Note: feels well' no complaints Vital Signs - 24 hr 12/13/18 12/13/18 12/14/18 13:26 21:00 05:42 Temperature 98.7 F 98.0 F Pulse Rate 71 72 Respiratory 18 16 18 Rate Blood Pressure 147/79 140/93 O2 Sat by Pulse 98 Oximetry (%) 12/14/18 10:00 Temperature Pulse Rate 72 Respiratory 20 Rate Blood Pressure 125/64 O2 Sat by Pulse Oximetry (%) Current Medications Generic Name Dose Route Start Last Admin Trade Name Freq PRN Reason Stop Dose Admin Acetaminophen 650 mg 12/12/18 15:52 12/14/18 05:09 Tylenol - PO 650 mg Q4H PRN Administration PAIN LEVEL 1-5 Atorvastatin Calcium 10 mg 12/12/18 22:00 12/13/18 21:39 Lipitor - PO 10 mg HS [facility]ST[facility] Administration Calcium Carbonate/Cholecalciferol 1 tab 12/12/18 16:15 12/14/18 10:06 Os-[place]ano 500+D - PO 1 tab DAILY [facility] Administration Enalapril Maleate 5 mg 12/12/18 16:15 12/14/18 10:06 Vasotec - PO 5 mg DAILY [facility] Administration Enoxaparin Sodium 40 mg 12/13/18 10:00 12/14/18 10:06 Lovenox - SQ 40 mg DAILY [facility] Administration Furosemide 40 mg 12/13/18 06:00 12/14/18 06:15 Lasix - PO Not Given BIDLASIX [facility] Gabapentin 300 mg 12/12/18 22:00 12/14/18 05:08 Neurontin - PO 300 mg TID [facility] Administration Vancomycin HCl 1,250 mg/ 250 mls @ 250 mls/2 hr 12/13/18 10:00 12/14/18 10:06 Dextrose IVPB 250 mls/2 hr Q24H [facility] Administration Protocol Insulin Aspart 1 vial 12/12/18 16:30 12/14/18 06:15 Novolog Vial Sliding Scale - SQ Not Given BIDAC [facility] Protocol Insulin Aspart 52 units 12/13/18 12:10 12/14/18 07:57 Novolog Mix 70/30 Vial SQ 52 unit BID@0700,2200 [facility] Administration Mupirocin 1 applic 12/12/18 22:00 12/14/18 10:07 Bactroban 2% Cream - TP 1 applic BID [facility] Administration Nystatin 1 applic 12/13/18 13:00 12/14/18 10:07 Mycostatin Cream - TP 1 applic BID [facility] Administration Oxycodone HCl 5 mg 12/12/18 15:52 12/14/18 01:30 Roxicodone - PO 5 mg Q6H PRN Administration PAIN LEVEL 6-10 Laboratory Results - last 24 hr 12/13/18 12/13/18 12/14/18 16:52 21:06 05:52 WBC RBC Hgb Hct MCV MCH MCHC RDW Plt Count MPV Absolute Neuts (auto) Neutrophils % Lymphocytes % Monocytes % Eosinophils % Basophils % Nucleated RBC % Sodium Potassium Chloride Carbon Dioxide Anion Gap BUN Creatinine Est GFR (CKD-EPI)AfAm Est GFR (CKD-EPI)NonAf POC Glucometer 157 195 120 Random Glucose Calcium Total Bilirubin AST ALT Alkaline Phosphatase Total Protein Albumin 12/14/18 12/14/18 06:40 06:40 WBC 6.6 RBC 4.32 Hgb 12.8 Hct 38.7 MCV 89.5 MCH 29.7 MCHC 33.1 RDW 13.5 Plt Count 265 MPV 8.1 Absolute Neuts (auto) 4.0 Neutrophils % 59.6 Lymphocytes % 27.7 D Monocytes % 8.7 Eosinophils % 3.5 Basophils % 0.5 Nucleated RBC % 0 Sodium 142 Potassium 4.0 Chloride 105 Carbon Dioxide 32 Anion Gap 5 L BUN 10.2 Creatinine 0.7 Est GFR (CKD-EPI)AfAm 111.47 Est GFR (CKD-EPI)NonAf 96.18 POC Glucometer Random Glucose 119 H Calcium 8.3 L Total Bilirubin 0.5 AST 13 L ALT 32 Alkaline Phosphatase 77 Total Protein 6.2 L Albumin 3.0 L S1 S2 RRR Lungs clear Morbid obesity Abd- soft, NT ext-- erythema lower right reis, ulcer noted+, tender fungal rash in folds PLAN Spoke with ID on iv vanco blood cultures negative wound care Ortho , vascular eval noted\ diabetic control Problem List - Problems (1) Diabetic leg 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 Code(s): E10.622 - TYPE 1 DIABETES MELLITUS WITH OTHER SKIN ULCER; L97.909 - NON -PRS CHRONIC ULC UNSP PRT OF UNSP LOW LEG W UNSP SEVERITY (2) Insulin dependent diabetes mellitus Code(s): E11.9 - TYPE 2 DIABETES MELLITUS WITHOUT COMPLICATIONS; Z79.4 - LONG-TERM (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
[2018-12-14] MEDS ORDERED: INSULIN (NOVOLOG) ASPART 100 UNITS/ML 10ML VIAL ONE (20:56)
[2018-12-14] MEDS: ATORVASTATIN CA 10 MG TABLET (FP) PO SCH (21:22)
[2018-12-15] MEDS: INSULIN SLIDING SCALE (NOVOLOG) 1 VIAL SQ SCH ×2 (06:16→16:44)
[2018-12-15] MEDS: GABAPENTIN 300 MG CAPSULE (FP) PO SCH ×3 (06:17→21:24)
[2018-12-15] MEDS: FUROSEMIDE 40 MG TABLET (FP) PO SCH ×2 (06:17→13:58)
[2018-12-15] MEDS: oxyCODONE HCL 5 MG TABLET PO PRN ×2 (07:45→16:42)
[2018-12-15] MEDS: INSULIN (NOVOLOG MIX 70/30) 100 UNITS/ML MDV SQ SCH ×2 (07:48→21:31)
[2018-12-15] MEDS: ENALAPRIL MALEATE 5 MG TABLET (FP) PO SCH (10:09)
[2018-12-15] MEDS: VANCOMYCIN HCL 1,250 MG in DEXTROSE 5%-WATER - 250 ML IVPB SCH ×2 (10:09→21:24)
[2018-12-15] MEDS: ENOXAPARIN NA (PORCINE) 40 MG/0.4 ML DISP.SYRIN SQ SCH (10:10)
[2018-12-15] MEDS: CALCIUM 500MG/VIT-D 200 UNITS COMBO TABLET (FP) PO SCH (10:10)
[2018-12-15] MEDS: MUPIROCIN CA 2% TOPICAL CREAM 15 GM TUBE TP SCH ×2 (10:10→21:16)
[2018-12-15] MEDS: NYSTATIN 100,000 UNIT/GM TOPICAL CREAM 15 GM TUBE TP SCH ×2 (10:10→21:25)
[2018-12-15] MEDS ORDERED: VANCOMYCIN 1,250 MG in DEXTROSE 5%-WATER - 250 ML IVPB SCH (12:00)
--- NOTE | 2018-12-15 12:11 | PN ---
Progress Note, Physician History of Present Illness: stable no issues swelling of leg and erythema improving - Current Medication List Current Medications: Active Medications Acetaminophen (Tylenol -) 650 mg PO Q4H PRN PRN Reason: PAIN LEVEL 1-5 Last Admin: 12/14/18 14:33 Dose: 650 mg Atorvastatin Calcium (Lipitor -) 10 mg PO HS [facility] Last Admin: 12/14/18 21:22 Dose: 10 mg Calcium Carbonate/Cholecalciferol (Os-Chano 500+D -) 1 tab PO DAILY [facility] Last Admin: 12/15/18 10:10 Dose: 1 tab Enalapril Maleate (Vasotec -) 5 mg PO DAILY [facility] Last Admin: 12/15/18 10:09 Dose: 5 mg Enoxaparin Sodium (Lovenox -) 40 mg SQ DAILY [facility] Last Admin: 12/15/18 10:10 Dose: 40 mg Furosemide (Lasix -) 40 mg PO BIDLASIX [facility] Last Admin: 12/15/18 06:17 Dose: 40 mg Gabapentin (Neurontin -) 300 mg PO TID [facility] Last Admin: 12/15/18 06:17 Dose: 300 mg Vancomycin HCl 1,250 mg/ (Dextrose) 250 mls @ 250 mls/2 hr IVPB BID [facility]; Protocol Insulin Aspart (Novolog Vial Sliding Scale -) 1 vial SQ BIDAC [facility]; Protocol Last Admin: 12/15/18 06:16 Dose: Not Given Insulin Aspart (Novolog Mix 70/30 Vial) 52 units SQ BID@0700,2200 [facility] Last Admin: 12/15/18 07:48 Dose: Not Given Mupirocin (Bactroban 2% Cream -) 1 applic TP BID [facility] Last Admin: 12/15/18 10:10 Dose: 1 applic Nystatin (Mycostatin Cream -) 1 applic TP BID [facility] Last Admin: 12/15/18 10:10 Dose: 1 applic Oxycodone HCl (Roxicodone -) 5 mg PO Q6H PRN PRN Reason: PAIN LEVEL 6-10 Last Admin: 12/15/18 07:45 Dose: 5 mg - Objective Vital Signs: Vital Signs Temperature 97.9 F 12/15/18 05:45 Pulse Rate 68 12/15/18 05:45 Respiratory Rate 20 12/15/18 05:45 Blood Pressure 149/69 12/15/18 05:45 O2 Sat by Pulse Oximetry (%) 98 12/13/18 21:00 Constitutional: Yes: No Distress, Calm Cardiovascular: Yes: S1, S2 Respiratory: Yes: Regular, CTA Bilaterally Gastrointestinal: Yes: Normal Bowel Sounds, Soft Musculoskeletal: Yes: WNL Extremities: Yes: Other Wound/Incision: Yes: Dressing Dry and Intact Neurological: Yes: Alert, Oriented Psychiatric: Yes: Alert, Oriented Labs: CBC, BMP 12/14/18 06:40 12/14/18 06:40 INR, PTT INR 1.01 (0.83-1.09) 12/12/18 11:45 Assessment/Plan Problem List - Problems (1) Diabetic leg 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 Code(s): E10.622 - TYPE 1 DIABETES MELLITUS WITH OTHER SKIN ULCER; L97.909 - NON -PRS CHRONIC ULC UNSP PRT OF UNSP LOW LEG W UNSP SEVERITY (2) Insulin dependent diabetes mellitus Code(s): E11.9 - TYPE 2 DIABETES MELLITUS WITHOUT COMPLICATIONS; Z79.4 - [facility] (CURRENT) USE OF INSULIN (3) Morbid obesity Code(s): E66.01 - MORBID (SEVERE) OBESITY DUE TO EXCESS CALORIES (4) Osteoarthritis of knees, bilateral Code(s): M17.0 - BILATERAL PRIMARY OSTEOARTHRITIS OF KNEE plan vanco trough noted will increase dose of vanco rest as per the team
--- NOTE | 2018-12-15 12:35 | PN ---
Progress Note (short form) - Note Progress Note: feels well' no complaints Vital Signs - 24 hr 12/14/18 12/14/18 12/14/18 14:40 20:08 20:36 Temperature 98.2 F 98 F Pulse Rate 78 70 Respiratory 20 20 20 Rate Blood Pressure 138/75 153/75 12/15/18 12/15/18 05:45 10:00 Temperature 97.9 F Pulse Rate 68 76 Respiratory 20 20 Rate Blood Pressure 149/69 155/82 Current Medications Generic Name Dose Route Start Last Admin Trade Name Freq PRN Reason Stop Dose Admin Acetaminophen 650 mg 12/12/18 15:52 12/14/18 14:33 Tylenol - PO 650 mg Q4H PRN Administration PAIN LEVEL 1-5 Atorvastatin Calcium 10 mg 12/12/18 22:00 12/14/18 21:22 Lipitor - PO 10 mg HS [facility] Administration Calcium Carbonate/Cholecalciferol 1 tab 12/12/18 16:15 12/15/18 10:10 Os-Chano 500+D - PO 1 tab DAILY [facility] Administration Enalapril Maleate 5 mg 12/12/18 16:15 12/15/18 10:09 Vasotec - PO 5 mg DAILY [facility] Administration Enoxaparin Sodium 40 mg 12/13/18 10:00 12/15/18 10:10 Lovenox - SQ 40 mg DAILY [facility] Administration Furosemide 40 mg 12/13/18 06:00 12/15/18 13:58 Lasix - PO 40 mg BIDLASIX [facility] Administration Gabapentin 300 mg 12/12/18 22:00 12/15/18 13:58 Neurontin - PO 300 mg TID [facility] Administration Vancomycin HCl 1,250 mg/ 250 mls @ 250 mls/2 hr 12/15/18 22:00 Dextrose IVPB BID [facility] Protocol Insulin Aspart 1 vial 12/12/18 16:30 12/15/18 06:16 Novolog Vial Sliding Scale - SQ Not Given BIDAC [facility] Protocol Insulin Aspart 52 units 12/13/18 12:10 12/15/18 07:48 Novolog Mix 70/30 Vial SQ Not Given BID@0700,2200 [facility] Mupirocin 1 applic 12/12/18 22:00 12/15/18 10:10 Bactroban 2% Cream - TP 1 applic BID [facility] Administration Nystatin 1 applic 12/13/18 13:00 12/15/18 10:10 Mycostatin Cream - TP 1 applic BID [facility] Administration Oxycodone HCl 5 mg 12/12/18 15:52 12/15/18 07:45 Roxicodone - PO 5 mg Q6H PRN Administration PAIN LEVEL 6-10 Laboratory Results - last 24 hr 12/14/18 12/14/18 12/15/18 17:03 21:21 05:57 POC Glucometer 157 128 90 Vancomycin Pre-Dose 12/15/18 12/15/18 09:40 11:04 POC Glucometer 164 Vancomycin Pre-Dose 3.1 L S1 S2 RRR Lungs clear Morbid obesity Abd- soft, NT ext-- erythema lower right reis, ulcer noted+, tender -- decreased erythema fungal rash in folds PLAN Spoke with ID increase vanco will need iv antibiotics over the weekend doppler studies were done at wound care and explained to pt will consult podiatry for possible fungal nails - toes on iv vanco blood cultures negative wound care Ortho , vascular eval noted\ diabetic control Problem List - Problems (1) Diabetic leg 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 Code(s): E10.622 - TYPE 1 DIABETES MELLITUS WITH OTHER SKIN ULCER; L97.909 - NON -PRS CHRONIC ULC UNSP PRT OF UNSP LOW LEG W UNSP SEVERITY (2) Insulin dependent diabetes mellitus Code(s): E11.9 - TYPE 2 DIABETES MELLITUS WITHOUT COMPLICATIONS; Z79.4 - [facility] (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
[2018-12-15] MEDS: ACETAMINOPHEN 325 MG TABLET (FP) PO PRN (16:43)
[2018-12-15] MEDS ORDERED: PT OWN MED DRAWER 7, Y5N ONE (21:19)
[2018-12-15] MEDS: ATORVASTATIN CA 10 MG TABLET (FP) PO SCH (21:24)
[2018-12-16] MEDS: GABAPENTIN 300 MG CAPSULE (FP) PO SCH ×3 (06:05→21:36)
[2018-12-16] MEDS: FUROSEMIDE 40 MG TABLET (FP) PO SCH ×2 (06:05→15:04)
[2018-12-16] MEDS: INSULIN SLIDING SCALE (NOVOLOG) 1 VIAL SQ SCH ×2 (06:06→16:34)
[2018-12-16] MEDS: INSULIN (NOVOLOG MIX 70/30) 100 UNITS/ML MDV SQ SCH ×2 (06:06→21:39)
[2018-12-16] MEDS: ACETAMINOPHEN 325 MG TABLET (FP) PO PRN ×2 (06:09→21:37)
[2018-12-16] MEDS: oxyCODONE HCL 5 MG TABLET PO PRN ×2 (06:09→21:36)
--- NOTE | 2018-12-16 07:53 | CONSULT ---
Consult - text type - Consultation Consultation Note: PODIATRY 58 y/o diabetic obese female seen at bedside for evaluation of her fungal nails. States that she had been wanting to see a livestock haulier to have feet checked but did not have the chance. States she is in the process of losing weight as well. Denies any other pedal complaints other than mildly dry skin. Has stasis wound on RLE as well which she is being treated for. O: RLE grossly edematous, wound on LE covered with DSD and left intact, no drainage , dp pt 1/4 , temp gradient wnl, cap fill time < 4 s to all digits. RLE hallucal and 5th digit nails thickened and discolored, no pain to palpation, minimally elongated A: onychomysosis Diabetes type 2 P: Evaluated and reviewed Will follow up in my [place] office for fungal nail care; can call for appt Thank you for allowing me to participate in the care of this patient.
[2018-12-16] MEDS: ENALAPRIL MALEATE 5 MG TABLET (FP) PO SCH (09:15)
[2018-12-16] MEDS: VANCOMYCIN HCL 1,250 MG in DEXTROSE 5%-WATER - 250 ML IVPB SCH ×2 (09:15→21:38)
[2018-12-16] MEDS: CALCIUM 500MG/VIT-D 200 UNITS COMBO TABLET (FP) PO SCH (09:16)
[2018-12-16] MEDS: NYSTATIN 100,000 UNIT/GM TOPICAL CREAM 15 GM TUBE TP SCH ×2 (10:00→21:39)
[2018-12-16] MEDS: ENOXAPARIN NA (PORCINE) 40 MG/0.4 ML DISP.SYRIN SQ SCH (10:15)
[2018-12-16] MEDS: MUPIROCIN CA 2% TOPICAL CREAM 15 GM TUBE TP SCH ×2 (10:15→21:41)
--- NOTE | 2018-12-16 10:24 | PN ---
Progress Note, Physician History of Present Illness: stable no new issues - Current Medication List Current Medications: Active Medications Acetaminophen (Tylenol -) 650 mg PO Q4H PRN PRN Reason: PAIN LEVEL 1-5 Last Admin: 12/16/18 06:09 Dose: 650 mg Atorvastatin Calcium (Lipitor -) 10 mg PO HS [facility] Last Admin: 12/15/18 21:24 Dose: 10 mg Calcium Carbonate/Cholecalciferol (Os-Chano 500+D -) 1 tab PO DAILY [facility] Last Admin: 12/16/18 09:16 Dose: 1 tab Enalapril Maleate (Vasotec -) 5 mg PO DAILY [facility] Last Admin: 12/16/18 09:15 Dose: 5 mg Enoxaparin Sodium (Lovenox -) 40 mg SQ DAILY [facility] Last Admin: 12/15/18 10:10 Dose: 40 mg Furosemide (Lasix -) 40 mg PO BIDLASIX [facility] Last Admin: 12/16/18 06:05 Dose: Not Given Gabapentin (Neurontin -) 300 mg PO TID [facility] Last Admin: 12/16/18 06:05 Dose: 300 mg Vancomycin HCl 1,250 mg/ (Dextrose) 250 mls @ 250 mls/2 hr IVPB BID [facility]; Protocol Last Admin: 12/16/18 09:15 Dose: 250 mls/2 hr Insulin Aspart (Novolog Vial Sliding Scale -) 1 vial SQ BIDAC [facility]; Protocol Last Admin: 12/16/18 06:06 Dose: Not Given Insulin Aspart (Novolog Mix 70/30 Vial) 52 units SQ BID@0700,2200 [facility] Last Admin: 12/16/18 06:06 Dose: Not Given Mupirocin (Bactroban 2% Cream -) 1 applic TP BID [facility] Last Admin: 12/15/18 21:16 Dose: Not Given Nystatin (Mycostatin Cream -) 1 applic TP BID [facility] Last Admin: 12/15/18 21:25 Dose: 1 applic Oxycodone HCl (Roxicodone -) 5 mg PO Q6H PRN PRN Reason: PAIN LEVEL 6-10 Last Admin: 12/16/18 06:09 Dose: 5 mg - Objective Vital Signs: Vital Signs Temperature 97.6 F 12/16/18 06:36 Pulse Rate 66 12/16/18 06:36 Respiratory Rate 20 12/16/18 06:36 Blood Pressure 142/82 12/16/18 06:36 O2 Sat by Pulse Oximetry (%) 97 12/15/18 21:00 Constitutional: Yes: No Distress, Calm, Obese Cardiovascular: Yes: Regular Rate and Rhythm Respiratory: Yes: Regular, CTA Bilaterally Gastrointestinal: Yes: Normal Bowel Sounds, Soft Musculoskeletal: Yes: WNL Extremities: Yes: Other Wound/Incision: Yes: Dressing Dry and Intact Neurological: Yes: Alert, Oriented Psychiatric: Yes: Alert, Oriented Labs: CBC, BMP 12/14/18 06:40 12/14/18 06:40 INR, PTT INR 1.01 (0.83-1.09) 12/12/18 11:45 Assessment/Plan Problem List - Problems (1) Diabetic leg 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 Code(s): E10.622 - TYPE 1 DIABETES MELLITUS WITH OTHER SKIN ULCER; L97.909 - NON -PRS CHRONIC ULC UNSP PRT OF UNSP LOW LEG W UNSP SEVERITY (2) Insulin dependent diabetes mellitus Code(s): E11.9 - TYPE 2 DIABETES MELLITUS WITHOUT COMPLICATIONS; Z79.4 - [employer] (CURRENT) USE OF INSULIN (3) Morbid obesity Code(s): E66.01 - MORBID (SEVERE) OBESITY DUE TO EXCESS CALORIES (4) Osteoarthritis of knees, bilateral Code(s): M17.0 - BILATERAL PRIMARY OSTEOARTHRITIS OF KNEE plan continue current mgmt rest as per the team will check vanco trough tomorrow
--- NOTE | 2018-12-16 12:44 | PN ---
Progress Note (short form) - Note Progress Note: pt seen/ examined chart reviewed all f/u noted Vital Signs Temp 98 F 12/16/18 10:00 Pulse 77 12/16/18 10:00 Resp 20 12/16/18 10:00 BP 153/88 12/16/18 10:00 Pulse Ox 97 12/15/18 21:00 Intake & Output 12/15/18 12/16/18 12/16/18 23:59 11:59 23:59 Intake Total 900 500 Balance 900 500 Weight 415 lb Intake: IVPB 250 250 Oral 650 250 Other: Voiding Method Toilet Toilet # Unmeasured Voids Void 2 2 Weight Measurement Method Built in [facility] Active Medications Acetaminophen (Tylenol -) 650 mg PO Q4H PRN PRN Reason: PAIN LEVEL 1-5 Last Admin: 12/16/18 06:09 Dose: 650 mg Atorvastatin Calcium (Lipitor -) 10 mg PO HS [facility] Last Admin: 12/15/18 21:24 Dose: 10 mg Calcium Carbonate/Cholecalciferol (Os-Chano 500+D -) 1 tab PO DAILY [facility] Last Admin: 12/16/18 09:16 Dose: 1 tab Enalapril Maleate (Vasotec -) 5 mg PO DAILY [facility] Last Admin: 12/16/18 09:15 Dose: 5 mg Enoxaparin Sodium (Lovenox -) 40 mg SQ DAILY [facility] Last Admin: 12/15/18 10:10 Dose: 40 mg Furosemide (Lasix -) 40 mg PO BIDLASIX [facility] Last Admin: 12/16/18 06:05 Dose: Not Given Gabapentin (Neurontin -) 300 mg PO TID [facility] Last Admin: 12/16/18 06:05 Dose: 300 mg Vancomycin HCl 1,250 mg/ (Dextrose) 250 mls @ 250 mls/2 hr IVPB BID [facility]; Protocol Last Admin: 12/16/18 09:15 Dose: 250 mls/2 hr Insulin Aspart (Novolog Vial Sliding Scale -) 1 vial SQ BIDAC [facility]; Protocol Last Admin: 12/16/18 06:06 Dose: Not Given Insulin Aspart (Novolog Mix 70/30 Vial) 52 units SQ BID@0700,2200 [facility] Last Admin: 12/16/18 06:06 Dose: Not Given Mupirocin (Bactroban 2% Cream -) 1 applic TP BID [facility] Last Admin: 12/15/18 21:16 Dose: Not Given Nystatin (Mycostatin Cream -) 1 applic TP BID [facility] Last Admin: 12/15/18 21:25 Dose: 1 applic Oxycodone HCl (Roxicodone -) 5 mg PO Q6H PRN PRN Reason: PAIN LEVEL 6-10 Last Admin: 12/16/18 06:09 Dose: 5 mg CBC, BMP 12/14/18 06:40 12/14/18 06:40 Microbiology 12/12/18 12:20 Blood Culture - Preliminary Blood - Peripheral Venous NO GROWTH OBTAINED AFTER 96 HOURS, INCUBATION TO CONTINUE FOR 1 DAYS. 12/12/18 11:45 Blood Culture - Preliminary Blood - Peripheral Venous NO GROWTH OBTAINED AFTER 96 HOURS, INCUBATION TO CONTINUE FOR 1 DAYS. Physical Exam S1 S2 RRR Lungs clear Morbid obesity Abd- soft, NT ext-- dressing + PLAN discussed on iv vanco blood cultures negative wound care Ortho , vascular eval noted diabetic control will follow Problem List - Problems (1) Diabetic leg 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 Code(s): E10.622 - TYPE 1 DIABETES MELLITUS WITH OTHER SKIN ULCER; L97.909 - NON -PRS CHRONIC ULC UNSP PRT OF UNSP LOW LEG W UNSP SEVERITY (2) Insulin dependent diabetes mellitus Code(s): E11.9 - TYPE 2 DIABETES MELLITUS WITHOUT COMPLICATIONS; Z79.4 - [facility] (CURRENT) USE OF INSULIN (3) Morbid obesity Code(s): E66.01 - MORBID (SEVERE) OBESITY DUE TO EXCESS CALORIES (4) Osteoarthritis of knees, bilateral Code(s): M17.0 - BILATERAL PRIMARY OSTEOARTHRITIS OF KNEE
[2018-12-16] MEDS ORDERED: PT OWN MED DRAWER 7, Y5N ONE (21:30)
[2018-12-16] MEDS: ATORVASTATIN CA 10 MG TABLET (FP) PO SCH (21:36)
[2018-12-17] MEDS: ACETAMINOPHEN 325 MG TABLET (FP) PO PRN ×2 (04:31→13:34)
[2018-12-17] MEDS: oxyCODONE HCL 5 MG TABLET PO PRN ×2 (04:32→13:34)
[2018-12-17] MEDS: INSULIN (NOVOLOG MIX 70/30) 100 UNITS/ML MDV SQ SCH ×2 (05:59→21:52)
[2018-12-17] MEDS: FUROSEMIDE 40 MG TABLET (FP) PO SCH ×2 (05:59→13:36)
[2018-12-17] MEDS: GABAPENTIN 300 MG CAPSULE (FP) PO SCH ×3 (05:59→21:52)
[2018-12-17] MEDS: INSULIN SLIDING SCALE (NOVOLOG) 1 VIAL SQ SCH ×2 (06:04→17:01)
[2018-12-17] MEDS ORDERED: PT OWN MED DRAWER 7, Y5N ONE ×2 (09:14→21:32)
[2018-12-17] MEDS: ENALAPRIL MALEATE 5 MG TABLET (FP) PO SCH (09:32)
[2018-12-17] MEDS: VANCOMYCIN HCL 1,250 MG in DEXTROSE 5%-WATER - 250 ML IVPB SCH ×2 (09:32→21:53)
[2018-12-17] MEDS: ENOXAPARIN NA (PORCINE) 40 MG/0.4 ML DISP.SYRIN SQ SCH (09:32)
[2018-12-17] MEDS: CALCIUM 500MG/VIT-D 200 UNITS COMBO TABLET (FP) PO SCH (09:32)
[2018-12-17] MEDS: MUPIROCIN CA 2% TOPICAL CREAM 15 GM TUBE TP SCH ×2 (09:34→21:52)
[2018-12-17] MEDS: NYSTATIN 100,000 UNIT/GM TOPICAL CREAM 15 GM TUBE TP SCH ×2 (09:35→21:52)
--- NOTE | 2018-12-17 11:35 | PN ---
Progress Note, Physician History of Present Illness: stable no complaints - Current Medication List Current Medications: Active Medications Acetaminophen (Tylenol -) 650 mg PO Q4H PRN PRN Reason: PAIN LEVEL 1-5 Last Admin: 12/17/18 04:31 Dose: 650 mg Atorvastatin Calcium (Lipitor -) 10 mg PO HS [facility] Last Admin: 12/16/18 21:36 Dose: 10 mg Calcium Carbonate/Cholecalciferol (Os-Chano 500+D -) 1 tab PO DAILY [facility] Last Admin: 12/17/18 09:32 Dose: 1 tab Enalapril Maleate (Vasotec -) 5 mg PO DAILY [facility] Last Admin: 12/17/18 09:32 Dose: 5 mg Enoxaparin Sodium (Lovenox -) 40 mg SQ DAILY [facility] Last Admin: 12/17/18 09:32 Dose: 40 mg Furosemide (Lasix -) 40 mg PO BIDLASIX [facility] Last Admin: 12/17/18 05:59 Dose: Not Given Gabapentin (Neurontin -) 300 mg PO TID [facility] Last Admin: 12/17/18 05:59 Dose: 300 mg Vancomycin HCl 1,250 mg/ (Dextrose) 250 mls @ 250 mls/2 hr IVPB BID [facility]; Protocol Last Admin: 12/17/18 09:32 Dose: 250 mls/2 hr Insulin Aspart (Novolog Vial Sliding Scale -) 1 vial SQ BIDAC [facility]; Protocol Last Admin: 12/17/18 06:04 Dose: Not Given Insulin Aspart (Novolog Mix 70/30 Vial) 52 units SQ BID@0700,2200 [facility] Last Admin: 12/17/18 05:59 Dose: 52 unit Mupirocin (Bactroban 2% Cream -) 1 applic TP BID [facility] Last Admin: 12/17/18 09:34 Dose: 1 applic Nystatin (Mycostatin Cream -) 1 applic TP BID [facility] Last Admin: 12/17/18 09:35 Dose: 1 applic Oxycodone HCl (Roxicodone -) 5 mg PO Q6H PRN PRN Reason: PAIN LEVEL 6-10 Last Admin: 12/16/18 21:36 Dose: 5 mg - Objective Vital Signs: Vital Signs Temperature 97.8 F 12/17/18 05:55 Pulse Rate 70 12/17/18 05:55 Respiratory Rate 20 12/17/18 05:55 Blood Pressure 144/73 12/17/18 05:55 O2 Sat by Pulse Oximetry (%) 98 12/16/18 21:00 Constitutional: Yes: No Distress, Calm Cardiovascular: Yes: S1, S2 Respiratory: Yes: Regular, CTA Bilaterally Gastrointestinal: Yes: Normal Bowel Sounds, Soft Musculoskeletal: Yes: WNL Extremities: Yes: Other Wound/Incision: Yes: Dressing Dry and Intact Neurological: Yes: Alert, Oriented Psychiatric: Yes: Alert, Oriented Labs: CBC, BMP 12/14/18 06:40 12/14/18 06:40 INR, PTT INR 1.01 (0.83-1.09) 12/12/18 11:45 Assessment/Plan Problem List - Problems (1) Diabetic leg 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 Code(s): E10.622 - TYPE 1 DIABETES MELLITUS WITH OTHER SKIN ULCER; L97.909 - NON -PRS CHRONIC ULC UNSP PRT OF UNSP LOW LEG W UNSP SEVERITY (2) Insulin dependent diabetes mellitus Code(s): E11.9 - TYPE 2 DIABETES MELLITUS WITHOUT COMPLICATIONS; Z79.4 - [employer] (CURRENT) USE OF INSULIN (3) Morbid obesity Code(s): E66.01 - MORBID (SEVERE) OBESITY DUE TO EXCESS CALORIES (4) Osteoarthritis of knees, bilateral Code(s): M17.0 - BILATERAL PRIMARY OSTEOARTHRITIS OF KNEE plan continue current mgmt rest as per the team wound care
[2018-12-17] MEDS: COLLAGENASE CLOSTRIDIUM HIST. 30 GRAMS TUBE TP SCH (17:03)
--- NOTE | 2018-12-17 17:46 | PN ---
Progress Note (short form) - Note Progress Note: feels well' has pain in leg Vital Signs - 24 hr 12/16/18 12/16/18 12/16/18 18:30 21:00 22:00 Temperature 98.2 F 98.6 F Pulse Rate 74 73 Respiratory 20 20 20 Rate Blood Pressure 144/74 143/66 O2 Sat by Pulse 98 Oximetry (%) 12/17/18 12/17/18 12/17/18 05:55 09:00 10:00 Temperature 97.8 F 97.8 F Pulse Rate 70 68 Respiratory 20 19 19 Rate Blood Pressure 144/73 137/82 O2 Sat by Pulse 98 Oximetry (%) 12/17/18 14:43 Temperature 98.4 F Pulse Rate 71 Respiratory 18 Rate Blood Pressure 145/78 O2 Sat by Pulse Oximetry (%) Current Medications Generic Name Dose Route Start Last Admin Trade Name Freq PRN Reason Stop Dose Admin Acetaminophen 650 mg 12/12/18 15:52 12/17/18 13:34 Tylenol - PO 650 mg Q4H PRN Administration PAIN LEVEL 1-5 Atorvastatin Calcium 10 mg 12/12/18 22:00 12/16/18 21:36 Lipitor - PO 10 mg HS [facility] Administration Calcium Carbonate/Cholecalciferol 1 tab 12/12/18 16:15 12/17/18 09:32 Os-Chano 500+D - PO 1 tab DAILY [facility] Administration Collagenase 1 applic 12/17/18 15:00 12/17/18 17:03 Santyl - TP Not Given DAILY [facility] Protocol Enalapril Maleate 5 mg 12/12/18 16:15 12/17/18 09:32 Vasotec - PO 5 mg DAILY [facility] Administration Enoxaparin Sodium 40 mg 12/13/18 10:00 12/17/18 09:32 Lovenox - SQ 40 mg DAILY [facility] Administration Furosemide 40 mg 12/13/18 06:00 12/17/18 13:36 Lasix - PO Not Given BIDLASIX [facility] Gabapentin 300 mg 12/12/18 22:00 12/17/18 13:34 Neurontin - PO 300 mg TID [facility] Administration Vancomycin HCl 1,250 mg/ 250 mls @ 250 mls/2 hr 12/15/18 22:00 12/17/18 09:32 Dextrose IVPB 250 mls/2 hr BID [facility] Administration Protocol Insulin Aspart 1 vial 12/12/18 16:30 12/17/18 17:01 Novolog Vial Sliding Scale - SQ 3 units BIDAC [facility] Administration Protocol Insulin Aspart 52 units 12/13/18 12:10 12/17/18 05:59 Novolog Mix 70/30 Vial SQ 52 unit BID@0700,2200 [facility] Administration Mupirocin 1 applic 12/12/18 22:00 12/17/18 09:34 Bactroban 2% Cream - TP 1 applic BID [facility] Administration Nystatin 1 applic 12/13/18 13:00 12/17/18 09:35 Mycostatin Cream - TP 1 applic BID [facility] Administration Oxycodone HCl 5 mg 12/12/18 15:52 12/17/18 13:34 Roxicodone - PO 5 mg Q6H PRN Administration PAIN LEVEL 6-10 S1 S2 RRR Lungs clear Morbid obesity Abd- soft, NT ext-- erythema lower right reis, ulcer noted+, tender --no increased erythem, small areas of sloughing fungal rash in folds PLAN Spoke with ID increase vanco will need iv antibiotics over the weekend doppler studies were done at wound care and explained to pt podiatry lashaeal noted santyl ointment to wound-- spoke with DR Becerril on iv vanco blood cultures negative wound care diabetic control Problem List - Problems (1) Diabetic leg 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 Code(s): E10.622 - TYPE 1 DIABETES MELLITUS WITH OTHER SKIN ULCER; L97.909 - NON -PRS CHRONIC ULC UNSP PRT OF UNSP LOW LEG W UNSP SEVERITY (2) Insulin dependent diabetes mellitus Code(s): E11.9 - TYPE 2 DIABETES MELLITUS WITHOUT COMPLICATIONS; Z79.4 - [employer] (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
[2018-12-17] MEDS: ATORVASTATIN CA 10 MG TABLET (FP) PO SCH (21:52)
[2018-12-18] MEDS: oxyCODONE HCL 5 MG TABLET PO PRN ×2 (03:08→20:30)
[2018-12-18] MEDS: ACETAMINOPHEN 325 MG TABLET (FP) PO PRN (03:08)
[2018-12-18] MEDS: FUROSEMIDE 40 MG TABLET (FP) PO SCH ×3 (06:18→14:25)
[2018-12-18] MEDS: INSULIN (NOVOLOG MIX 70/30) 100 UNITS/ML MDV SQ SCH ×2 (06:18→21:57)
[2018-12-18] MEDS: INSULIN SLIDING SCALE (NOVOLOG) 1 VIAL SQ SCH ×2 (06:18→17:00)
[2018-12-18] MEDS: GABAPENTIN 300 MG CAPSULE (FP) PO SCH ×3 (06:18→21:49)
[2018-12-18 07:15] LABS: BASO % 0.9 % (0-2.0); EOS % 5.6 % (0-4.5); HEMATOCRIT 39.2 % (32.4-45.2); HEMOGLOBIN 12.9 GM/dL (10.7-15.3); MCH 29.7 pg (25.7-33.7); MCHC 32.8 g/dl (32.0-36.0); MEAN CELL VOLUME 90.4 fl (80-96); MONO % 10.7 % (3.8-10.2); NEUT % 53.8 % (42.8-82.8); PLATELET COUNT 252 K/MM3 (134-434); RBC 4.34 M/mm3 (3.60-5.2); RDW 14.2 % (11.6-15.6); WHITE BLOOD COUNT 6.3 K/mm3 (4.0-10.0)
[2018-12-18 07:36] LABS: ALBUMIN 2.9 g/dl (3.4-5.0); BILIRUBIN,TOTAL 0.3 mg/dL (0.2-1); CALCIUM 8.3 mg/dL (8.5-10.1); CREATININE 0.8 mg/dL (0.55-1.3); POTASSIUM 4.4 mmol/L (3.5-5.1); TOT PROT 5.8 g/dl (6.4-8.2)
--- NOTE | 2018-12-18 10:23 | PN ---
Progress Note, Physician History of Present Illness: patient stable no new issues - Current Medication List Current Medications: Active Medications Acetaminophen (Tylenol -) 650 mg PO Q4H PRN PRN Reason: PAIN LEVEL 1-5 Last Admin: 12/18/18 03:08 Dose: 650 mg Atorvastatin Calcium (Lipitor -) 10 mg PO HS [facility] Last Admin: 12/17/18 21:52 Dose: 10 mg Calcium Carbonate/Cholecalciferol (Os-Chano 500+D -) 1 tab PO DAILY [facility] Last Admin: 12/17/18 09:32 Dose: 1 tab Collagenase (Santyl -) 1 applic TP DAILY [facility]; Protocol Last Admin: 12/17/18 17:03 Dose: Not Given Enalapril Maleate (Vasotec -) 5 mg PO DAILY [facility] Last Admin: 12/17/18 09:32 Dose: 5 mg Enoxaparin Sodium (Lovenox -) 40 mg SQ DAILY [facility] Last Admin: 12/17/18 09:32 Dose: 40 mg Furosemide (Lasix -) 40 mg PO BIDLASIX [facility] Last Admin: 12/18/18 06:21 Dose: Not Given Gabapentin (Neurontin -) 300 mg PO TID [facility] Last Admin: 12/18/18 06:18 Dose: 300 mg Vancomycin HCl 1,250 mg/ (Dextrose) 250 mls @ 250 mls/2 hr IVPB BID [facility]; Protocol Last Admin: 12/17/18 21:53 Dose: 250 mls/2 hr Insulin Aspart (Novolog Vial Sliding Scale -) 1 vial SQ BIDAC [facility]; Protocol Last Admin: 12/18/18 06:18 Dose: Not Given Insulin Aspart (Novolog Mix 70/30 Vial) 52 units SQ BID@0700,2200 [facility] Last Admin: 12/18/18 06:18 Dose: 52 unit Mupirocin (Bactroban 2% Cream -) 1 applic TP BID [facility] Last Admin: 12/17/18 21:52 Dose: 1 applic Nystatin (Mycostatin Cream -) 1 applic TP BID [facility] Last Admin: 12/17/18 21:52 Dose: 1 applic Oxycodone HCl (Roxicodone -) 5 mg PO Q6H PRN PRN Reason: PAIN LEVEL 6-10 Last Admin: 12/18/18 03:08 Dose: 5 mg - Objective Vital Signs: Vital Signs Temperature 97.9 F 12/18/18 05:51 Pulse Rate 63 12/18/18 05:51 Respiratory Rate 20 12/18/18 05:51 Blood Pressure 135/100 12/18/18 05:51 O2 Sat by Pulse Oximetry (%) 98 12/17/18 09:00 Constitutional: Yes: No Distress, Calm, Obese Cardiovascular: Yes: S1, S2 Respiratory: Yes: Regular, CTA Bilaterally Gastrointestinal: Yes: Normal Bowel Sounds, Soft Musculoskeletal: Yes: WNL Extremities: Yes: Other Wound/Incision: Yes: Dressing Dry and Intact Neurological: Yes: Alert, Oriented Psychiatric: Yes: Alert, Oriented Labs: CBC, BMP 12/18/18 06:30 12/18/18 06:30 INR, PTT INR 1.01 (0.83-1.09) 12/12/18 11:45 Assessment/Plan Problem List - Problems (1) Diabetic leg 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 Code(s): E10.622 - TYPE 1 DIABETES MELLITUS WITH OTHER SKIN ULCER; L97.909 - NON -PRS CHRONIC ULC UNSP PRT OF UNSP LOW LEG W UNSP SEVERITY (2) Insulin dependent diabetes mellitus Code(s): E11.9 - TYPE 2 DIABETES MELLITUS WITHOUT COMPLICATIONS; Z79.4 - [facility] (CURRENT) USE OF INSULIN (3) Morbid obesity Code(s): E66.01 - MORBID (SEVERE) OBESITY DUE TO EXCESS CALORIES (4) Osteoarthritis of knees, bilateral Code(s): M17.0 - BILATERAL PRIMARY OSTEOARTHRITIS OF KNEE plan continue current mgmt rest as per the team wound care
--- NOTE | 2018-12-18 10:43 | PN ---
Progress Note (short form) - Note Progress Note: feels well' has pain in leg Vital Signs - 24 hr 12/18/18 12/18/18 12/18/18 05:51 09:00 10:00 Temperature 97.9 F 98 F Pulse Rate 63 62 Respiratory 20 19 19 Rate Blood Pressure 135/100 145/76 O2 Sat by Pulse 97 Oximetry (%) 12/18/18 13:40 Temperature 97.8 F Pulse Rate 72 Respiratory 18 Rate Blood Pressure 147/54 L O2 Sat by Pulse Oximetry (%) Current Medications Generic Name Dose Route Start Last Admin Trade Name Freq PRN Reason Stop Dose Admin Acetaminophen 650 mg 12/12/18 15:52 12/18/18 03:08 Tylenol - PO 650 mg Q4H PRN Administration PAIN LEVEL 1-5 Atorvastatin Calcium 10 mg 12/12/18 22:00 12/17/18 21:52 Lipitor - PO 10 mg HS CRISTINE Administration Calcium Carbonate/Cholecalciferol 1 tab 12/12/18 16:15 12/18/18 11:24 Os-[place] 500+D - PO 1 tab DAILY CRISTINE Administration Collagenase 1 applic 12/17/18 15:00 12/18/18 11:25 Santyl - TP Not Given DAILY CRISTINE Protocol Enalapril Maleate 5 mg 12/12/18 16:15 12/18/18 11:24 Vasotec - PO 5 mg DAILY CRISTINE Administration Enoxaparin Sodium 40 mg 12/13/18 10:00 12/18/18 11:24 Lovenox - SQ 40 mg DAILY CRISTINE Administration Furosemide 40 mg 12/13/18 06:00 12/18/18 14:25 Lasix - PO Not Given BIDLASIX CRISTINE Gabapentin 300 mg 12/12/18 22:00 12/18/18 14:24 Neurontin - PO 300 mg TID CRISTINE Administration Vancomycin HCl 1,250 mg/ 250 mls @ 250 mls/2 hr 12/15/18 22:00 12/18/18 11:25 Dextrose IVPB 250 mls/2 hr BID CRISTINE Administration Protocol Insulin Aspart 1 vial 12/12/18 16:30 12/18/18 06:18 Novolog Vial Sliding Scale - SQ Not Given BIDAC CRISTINE Protocol Insulin Aspart 52 units 12/13/18 12:10 12/18/18 06:18 Novolog Mix 70/30 Vial SQ 52 unit BID@0700,2200 CRISTINE Administration Mupirocin 1 applic 12/12/18 22:00 12/18/18 11:24 Bactroban 2% Cream - TP 1 applic BID CRISTINE Administration Nystatin 1 applic 12/13/18 13:00 12/18/18 11:25 Mycostatin Cream - TP 1 applic BID CRISTINE Administration Oxycodone HCl 5 mg 12/12/18 15:52 12/18/18 03:08 Roxicodone - PO 5 mg Q6H PRN Administration PAIN LEVEL 6-10 Laboratory Results - last 24 hr 12/18/18 12/18/18 12/18/18 06:30 06:30 09:30 WBC 6.3 RBC 4.34 Hgb 12.9 Hct 39.2 MCV 90.4 MCH 29.7 MCHC 32.8 RDW 14.2 Plt Count 252 MPV 8.0 Absolute Neuts (auto) 3.4 Neutrophils % 53.8 Lymphocytes % 29.0 Monocytes % 10.7 H Eosinophils % 5.6 H Basophils % 0.9 Nucleated RBC % 0 Sodium 141 Potassium 4.4 Chloride 108 H Carbon Dioxide 29 Anion Gap 3 L BUN 20.0 H Creatinine 0.8 Est GFR (CKD-EPI)AfAm 94.85 Est GFR (CKD-EPI)NonAf 81.84 Random Glucose 138 H Calcium 8.3 L Total Bilirubin 0.3 AST 22 ALT 42 Alkaline Phosphatase 69 Total Protein 5.8 L Albumin 2.9 L Vancomycin Pre-Dose 11.7 L S1 S2 RRR Lungs clear Morbid obesity Abd- soft, NT ext-- erythema lower right reis, ulcer noted+, tender --no increased erythem, no sloughing fungal rash in folds PLAN Spoke with ID increase vanco will need iv antibiotics over the weekend doppler studies were done at wound care and explained to pt podiatry lashaeal noted santyl ointment to wound-- spoke with DR Becerril on iv vanco blood cultures negative wound care diabetic control may change to Linezolid tomorrow per ID Problem List - Problems (1) Diabetic leg 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 Code(s): E10.622 - TYPE 1 DIABETES MELLITUS WITH OTHER SKIN ULCER; L97.909 - NON -PRS CHRONIC ULC UNSP PRT OF UNSP LOW LEG W UNSP SEVERITY (2) Insulin dependent diabetes mellitus Code(s): E11.9 - TYPE 2 DIABETES MELLITUS WITHOUT COMPLICATIONS; Z79.4 - 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
[2018-12-18] MEDS: CALCIUM 500MG/VIT-D 200 UNITS COMBO TABLET (FP) PO SCH (11:24)
[2018-12-18] MEDS: ENOXAPARIN NA (PORCINE) 40 MG/0.4 ML DISP.SYRIN SQ SCH (11:24)
[2018-12-18] MEDS: ENALAPRIL MALEATE 5 MG TABLET (FP) PO SCH (11:24)
[2018-12-18] MEDS: MUPIROCIN CA 2% TOPICAL CREAM 15 GM TUBE TP SCH ×2 (11:24→21:49)
[2018-12-18] MEDS: NYSTATIN 100,000 UNIT/GM TOPICAL CREAM 15 GM TUBE TP SCH ×2 (11:25→21:49)
[2018-12-18] MEDS: VANCOMYCIN HCL 1,250 MG in DEXTROSE 5%-WATER - 250 ML IVPB SCH ×2 (11:25→21:50)
[2018-12-18] MEDS: COLLAGENASE CLOSTRIDIUM HIST. 30 GRAMS TUBE TP SCH (11:25)
[2018-12-18] MEDS ORDERED: PT OWN MED DRAWER 7, Y5N ONE (21:19)
[2018-12-18] MEDS: ATORVASTATIN CA 10 MG TABLET (FP) PO SCH (21:49)
[2018-12-19] MEDS: FUROSEMIDE 40 MG TABLET (FP) PO SCH ×3 (06:13→14:22)
[2018-12-19] MEDS: GABAPENTIN 300 MG CAPSULE (FP) PO SCH ×2 (06:13→14:22)
[2018-12-19] MEDS: INSULIN (NOVOLOG MIX 70/30) 100 UNITS/ML MDV SQ SCH (06:14)
[2018-12-19] MEDS: INSULIN SLIDING SCALE (NOVOLOG) 1 VIAL SQ SCH (06:14)
[2018-12-19] MEDS ORDERED: INSULIN (NOVOLOG) ASPART 100 UNITS/ML 10ML VIAL ONE (06:21)
[2018-12-19] MEDS: CALCIUM 500MG/VIT-D 200 UNITS COMBO TABLET (FP) PO SCH (09:33)
[2018-12-19] MEDS: ENALAPRIL MALEATE 5 MG TABLET (FP) PO SCH (09:33)
[2018-12-19] MEDS: ENOXAPARIN NA (PORCINE) 40 MG/0.4 ML DISP.SYRIN SQ SCH (09:33)
[2018-12-19 09:34] VITALS: BP 124/69; PULSE 78; TEMP 98
[2018-12-19] MEDS: NYSTATIN 100,000 UNIT/GM TOPICAL CREAM 15 GM TUBE TP SCH (09:38)
[2018-12-19] MEDS: MUPIROCIN CA 2% TOPICAL CREAM 15 GM TUBE TP SCH (09:38)
--- NOTE | 2018-12-19 09:40 | PN ---
Progress Note, Physician History of Present Illness: patient lost her iv was given zyox - Current Medication List Current Medications: Active Medications Acetaminophen (Tylenol -) 650 mg PO Q4H PRN PRN Reason: PAIN LEVEL 1-5 Last Admin: 12/18/18 03:08 Dose: 650 mg Atorvastatin Calcium (Lipitor -) 10 mg PO HS ON LICENSE OF [facility] Last Admin: 12/18/18 21:49 Dose: 10 mg Calcium Carbonate/Cholecalciferol (Os-[place] 500+D -) 1 tab PO DAILY ON LICENSE OF [facility] Last Admin: 12/19/18 09:33 Dose: 1 tab Collagenase (Santyl -) 1 applic TP DAILY ON LICENSE OF [facility]; Protocol Last Admin: 12/18/18 11:25 Dose: Not Given Enalapril Maleate (Vasotec -) 5 mg PO DAILY ON LICENSE OF [facility] Last Admin: 12/19/18 09:33 Dose: 5 mg Enoxaparin Sodium (Lovenox -) 40 mg SQ DAILY ON LICENSE OF [facility] Last Admin: 12/19/18 09:33 Dose: 40 mg Furosemide (Lasix -) 40 mg PO BIDLASIX ON LICENSE OF [facility] Last Admin: 12/19/18 06:17 Dose: Not Given Gabapentin (Neurontin -) 300 mg PO TID ON LICENSE OF [facility] Last Admin: 12/19/18 06:13 Dose: 300 mg Insulin Aspart (Novolog Vial Sliding Scale -) 1 vial SQ BIDAC ON LICENSE OF [facility]; Protocol Last Admin: 12/19/18 06:14 Dose: 3 units Insulin Aspart (Novolog Mix 70/30 Vial) 52 units SQ BID@0700,2200 ON LICENSE OF [facility] Last Admin: 12/19/18 06:14 Dose: 52 unit Linezolid (Zyvox (Restricted To Id) -) 600 mg PO BID ON LICENSE OF [facility] Stop: 12/19/18 10:01 Linezolid (Zyvox (Restricted To Id) -) 600 mg PO BID ON LICENSE OF [facility] Mupirocin (Bactroban 2% Cream -) 1 applic TP BID ON LICENSE OF [facility] Last Admin: 12/18/18 21:49 Dose: 1 applic Nystatin (Mycostatin Cream -) 1 applic TP BID ON LICENSE OF [facility] Last Admin: 12/18/18 21:49 Dose: 1 applic Oxycodone HCl (Roxicodone -) 5 mg PO Q6H PRN PRN Reason: PAIN LEVEL 6-10 Last Admin: 12/18/18 20:30 Dose: 5 mg - Objective Vital Signs: Vital Signs Temperature 98.0 F 12/19/18 09:33 Pulse Rate 78 12/19/18 09:33 Respiratory Rate 20 12/19/18 09:33 Blood Pressure 124/69 12/19/18 09:33 O2 Sat by Pulse Oximetry (%) 97 12/18/18 09:00 Constitutional: Yes: No Distress, Calm, Obese Cardiovascular: Yes: S1, S2 Respiratory: Yes: Regular, CTA Bilaterally Gastrointestinal: Yes: Normal Bowel Sounds, Soft Musculoskeletal: Yes: WNL Extremities: Yes: Other Wound/Incision: Yes: Dressing Removed, Other (wound looked at improving but slowly) Neurological: Yes: Alert, Oriented Psychiatric: Yes: Alert, Oriented Labs: CBC, BMP 12/18/18 06:30 12/18/18 06:30 INR, PTT INR 1.01 (0.83-1.09) 12/12/18 11:45 Assessment/Plan Problem List - Problems (1) Diabetic leg 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 Code(s): E10.622 - TYPE 1 DIABETES MELLITUS WITH OTHER SKIN ULCER; L97.909 - NON -PRS CHRONIC ULC UNSP PRT OF UNSP LOW LEG W UNSP SEVERITY (2) Insulin dependent diabetes mellitus Code(s): E11.9 - TYPE 2 DIABETES MELLITUS WITHOUT COMPLICATIONS; Z79.4 - [facility] (CURRENT) USE OF INSULIN (3) Morbid obesity Code(s): E66.01 - MORBID (SEVERE) OBESITY DUE TO EXCESS CALORIES (4) Osteoarthritis of knees, bilateral Code(s): M17.0 - BILATERAL PRIMARY OSTEOARTHRITIS OF KNEE mrsa wound infection plan will start on zyox as patient has no iv access patient leg still not optimal can be send home and observed on zyox at least 10 more days if does not improve will need iv abx will d/w the team
[2018-12-19] MEDS: COLLAGENASE CLOSTRIDIUM HIST. 30 GRAMS TUBE TP SCH (09:44)
[2018-12-19] MEDS ORDERED: LINEZOLID 600 MG TABLET (RESTRICTED TO ID) PO SCH ×3 (10:00→22:00)
--- NOTE | 2018-12-19 11:10 | DS ---
Physical Examination Vital Signs: Vital Signs Temperature 98.0 F 12/19/18 09:33 Pulse Rate 78 12/19/18 09:33 Respiratory Rate 20 12/19/18 09:33 Blood Pressure 124/69 12/19/18 09:33 O2 Sat by Pulse Oximetry (%) 97 12/18/18 09:00 Findings/Remarks: pt seen/ examined chart reviewed feel well no complains Constitutional: Yes: No Distress, Obese Eyes: Yes: Conjunctiva Clear Neck: Yes: Supple Cardiovascular: Yes: Regular Rate and Rhythm Respiratory: Yes: CTA Bilaterally Gastrointestinal: Yes: Abdomen, Obese Edema: No Wound/Incision: Yes: Dressing Dry and Intact Labs: CBC, BMP 12/18/18 06:30 12/18/18 06:30 Discharge Summary Reason For Visit: NON HEALING WOUND OF LOWER EXTREMETY Current Active Problems Diabetic leg 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 (Acute) Insulin dependent diabetes mellitus (Acute) Morbid obesity (Acute) Non-healing wound of lower extremity (Acute) Osteoarthritis of knees, bilateral (Acute) Venous stasis ulcer (Acute) Hospital Course: w/c +ve mrsa treated with vanco i/d followed per recommendation - d/c on Zyvox x 10 days f/u in office one week counselled diet Meds reconcilled pt in agreement Discussed with nursing staff also Condition: Stable - Instructions Disposition: HOME - Home Medications Comprehensive Discharge Medication List: Ambulatory Orders Atorvastatin Ca 1 tab PO HS 04/10/16 Calcium Magnesium + D Tablet 1 tab PO DAILY 04/10/16 Enalapril Maleate 5 mg PO DAILY 04/10/16 Furosemide 40 mg PO BID 04/10/16 Metformin HCl 500 mg PO BID 04/10/16 Multivitamin 1 tab PO DAILY 04/10/16 Mupirocin Cream [Bactroban 2% Cream -] 1 applic TP BID #1 tube 12/05/18 Gabapentin [Neurontin -] 300 mg PO TID 12/09/18 Insulin Lispro Protamin/Lispro [Humalog Mix 75-25 Kwikpen] 50 unit SQ BID Magnesium Oxide [Magnesium] 400 mg PO ASDIR 12/12/18 Mv-Min/FA/Vit K/Lycop/Lut/Zeax [Ocuvite Eye Plus Multi Tablet] 1 each PO ASDIR 12/12/18 [place]-3S/Dha/Epa/Fish Oil/D3 [[place]-3 + D Softgel] 1 each PO DAILY 12/12/18 Acetaminophen [Tylenol .Regular Strength -] 650 mg PO Q4H PRN tablet 12/19/18 Collagenase Clostridium Hist. [Santyl -] 1 applic TP DAILY 30 Days #30 tube Insulin Sliding Scale [Novolog Vial Sliding Scale -] 1 vial SQ BIDAC units Linezolid [Zyvox (Restricted To Id) -] 600 mg PO BID #20 tablet 12/19/18
[2018-12-19 14:28] VITALS: BMI 77.8
== END 2018-12-19 16:03 | disposition home or self-care (01) | DRG 638 ==
LOC: JER 09:58 → JERBED 11:02 → J6S 14:20
PROVIDERS: ADMIT Internal Medicine; ATTEND Internal Medicine
DX: E10.622 Type 1 diabetes mellitus with other skin ulcer (principal); L97.909 Non-pressure chronic ulcer of unspecified part of unspecified lower leg with unspecified severity; Z68.45 Body mass index [BMI] 70 or greater, adult; L03.115 Cellulitis of right lower limb; Z79.4 Long term (current) use of insulin; E66.01 Morbid (severe) obesity due to excess calories; M17.0 Bilateral primary osteoarthritis of knee; B35.1 Tinea unguium; I83.009 Varicose veins of unspecified lower extremity with ulcer of unspecified site
CPT/HCPCS: 36415; 71045-TC-FY; 73560-TC-LT-FY; 73560-TC-RT-FY; 73590-TC-RT-FY; 80053; 80061; 81003; 82962; 83036; 83721; 84443; 85025; 85610; 85651; 87040; 87070; 87186; 87205; 93005; 93010; 99283-25; G0463-25; G0480

== ENCOUNTER 2019-05-19 10:09 | Inpatient (IN) | payer OTHER ==
--- NOTE | 2019-05-19 10:41 | PDOC ---
History of Present Illness - General Chief Complaint: Wound Stated Complaint: WOUND Time Seen by Provider: 05/19/19 10:34 - History of Present Illness Initial Comments: 05/19/19 10:56 The patient is a 59 year old female with a history of HLD, DM, Obesity who presents for evaluation of a wound to the right lower extremity. The patient reports that she has had a wound to the right lower extremity for the past several months that has been managed on an outpatient basis with antibiotics. She has required admission in the past due to MRSA infection in the wound. She had a reported wound culture performed 1 week ago that was positive for MRSA and presents for admission for IV antibiotics. The patient reports increased purulent drainage from the wound over the past several weeks but otherwise denies fevers, chills, SOB, chest pain, nausea, vomiting, abdominal pain, or changes with urination or bowel movements. Past History - Past Medical History Allergies/Adverse Reactions: Allergies Allergy/AdvReac Type Severity Reaction Status Date / Time adhesive tape AdvReac Intermediate Hives Verified 05/19/19 10:37 Home Medications: Ambulatory Orders Atorvastatin Ca 1 tab PO HS 04/10/16 Calcium Magnesium + D Tablet 1 tab PO DAILY 04/10/16 Enalapril Maleate 5 mg PO DAILY 04/10/16 Furosemide 40 mg PO BID 04/10/16 Metformin HCl 500 mg PO BID 04/10/16 Multivitamin 1 tab PO DAILY 04/10/16 Gabapentin [Neurontin -] 300 mg PO TID 12/09/18 Insulin Lispro Protamin/Lispro [Humalog Mix 75-25 Kwikpen] 50 unit SQ BID Magnesium Oxide [Magnesium] 400 mg PO ASDIR 12/12/18 Mv-Min/FA/Vit K/Lycop/Lut/Zeax [Ocuvite Eye Plus Multi Tablet] 1 each PO ASDIR 12/12/18 [place]-3S/Dha/Epa/Fish Oil/D3 [[place]-3 + D Softgel] 1 each PO DAILY 12/12/18 Acetaminophen [Tylenol .Regular Strength -] 650 mg PO Q4H PRN tablet 12/19/18 Collagenase Clostridium Hist. [Santyl -] 1 applic TP DAILY 30 Days #30 tube ASA - 81 mg PO DAILY 03/29/19 COPD: No Diabetes: Yes Hypercholesterolemia: Yes - Psycho Social/Smoking Cessation Hx Smoking History: Never smoked Have you smoked in the past 12 months: No Information on smoking cessation initiated: No Hx Alcohol Use: No Drug/Substance Use Hx: No Substance Use Type: Marijuana Hx Substance Use Treatment: No Review of Systems - Review of Systems Comments:: 05/19/19 11:01 Constitutional: No fevers, chills, fatigue, malaise HEENT: No Rhinorrhea, nasal congestion, visual changes Cardiovascular: No chest pain, syncope, palpitations, lightheadedness Respiratory: No Cough, SOB, Hemoptysis, Gastrointestinal: No Abdominal pain, Nausea, Vomiting, Constipation, Diarrhea, Melena Genitourinary: No Dysuria, Frequency, Urgency, Hesitancy, Hematuria, Flank pain Musculoskeletal: No Myalgia, arthralgia Skin: Right lower extremity wound. No rashes, itching, bruising, pallor Neurologic: No Headache, Dizziness, Numbness, Weakness, or Tingling Psychiatric: No Hallucinations. No SI or HI *Physical Exam - Vital Signs Last Vital Signs Temp Pulse Resp BP Pulse Ox 98.0 F 78 16 122/56 L 95 05/19/19 10:15 05/19/19 10:15 05/19/19 10:15 05/19/19 10:15 05/19/19 10:15 - Physical Exam 05/19/19 11:01 General Appearance: Nourished. Obese. No Apparent Distress HEENT: No Pharyngeal Erythema, Tonsillar Exudate, Tonsillar Erythema Neck: No Cervical Lymphadenopathy Respiratory/Chest: Lungs Clear, Normal Breath Sounds. No Crackles, Rales, Rhonchi, Wheezing Cardiovascular: Regular Rhythm, Regular Rate. No Murmur, Gallops, Rubs Gastrointestinal/Abdominal: Normal Bowel Sounds, Soft. No Guarding, Rebound, Tenderness Musculoskeletal: No CVA Tenderness Extremity: 3-4cm wound to the right reis with surrounding erythema. Normal Capillary Refill Integumentary: Normal Color, Dry, Warm Neurologic: Fully Oriented, Alert, Normal Mood/Affect, Normal Response, Medical Decision Making - Medical Decision Making 05/19/19 11:04 The patient is a 59 year old female with a history of HLD, DM, Obesity who presents for evaluation of a wound to the right lower extremity. Given the patient's history and physical exam, we will obtain a cbc, cmp, ekg to evaluate further. Dr. Crump with ID has consulted on the patient and is recommending vancomycin for treatment pending the patient's creatinine level. The patient will require admission for IV antibiotics and further monitoring and management. Discharge - Discharge Information Problems reviewed: Yes Clinical Impression/Diagnosis: Diabetic leg 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 Non-healing wound of lower extremity Qualifiers: Encounter type: initial encounter Laterality: right Qualified Code(s): S81.801A - Unspecified open wound, right lower leg, initial encounter Condition: Stable - Admission Yes - Follow up/Referral - Patient Discharge Instructions - Post Discharge Activity
--- NOTE | 2019-05-19 10:52 | PDOC ---
Documentation entered by Jose Salazar SCRIBE, acting as scribe for Paul Erwin MD. Paul Erwin MD: This documentation has been prepared by the Marie mack Xhesika, SCRIBE, under my direction and personally reviewed by me in its entirety. I confirm that the documentation accurately reflects all work, treatment, procedures, and medical decision making performed by me. Attending Attestation - Resident Resident Name: Ho Will - ED Attending Attestation I have performed the following: I have examined & evaluated the patient, The case was reviewed & discussed with the resident, I agree w/resident's findings & plan, Exceptions are as noted - HPI HPI: 05/19/19 15:11 59 years old with failure of outpatient antibiotics with recurrent lower extremity wound infection accepted by infectious disease DrAnu for IV antibiotics - Physicial Exam PE: Vitals: Triage Vital signs reviewed General Appearance: No acute distress, well nourished well developed, Neck: Supple; no Nucal rigidity Chest Wall: Nontender Cardiac: Regular rate and rhythym, no murmurs, no rubs, no gallops, Lungs: Clear to auscultation bilateral, good air movement bilaterally, Abdomen: Soft, non distended, normal bowel sounds, non tender to palpation Extremities: Full range of motion to all extremities, no cyanosis, clubbing, or edema Skin: Warm and dry, no rashes or lesions, no rash, no petechiae 3 cm x 5 cm area of cellulitis with central ulcer Psych: Normal mood, normal affect - Medical Decision Making 05/19/19 16:32 Patient sent to the ED for IV antibiotics status post outpatient management Infectious disease has been consulted Spoke with medicine, will admit for further management.
[2019-05-19] MEDS ORDERED: ALBUTEROL SO4 2.5/IPRATROPIUM 0.5 INH SOL 3 ML VIAL.NEB. NEB ONE (11:40)
[2019-05-19 11:41] LABS: BASO % 1.1 % (0-2.0); EOS % 1.9 % (0-4.5); HEMATOCRIT 40.3 % (32.4-45.2); HEMOGLOBIN 13.4 GM/dL (10.7-15.3); LYMPH % 23.7 % (8-40); MCH 30.5 pg (25.7-33.7); MCHC 33.4 g/dl (32.0-36.0); MEAN CELL VOLUME 91.5 fl (80-96); MEAN PLT VOLUME 8.4 fl (7.5-11.1); MONO % 6.7 % (3.8-10.2); NEUT % 66.6 % (42.8-82.8); PLATELET COUNT 259 K/MM3 (134-434); RDW 14.6 % (11.6-15.6); WHITE BLOOD COUNT 8.2 K/mm3 (4.0-10.0)
[2019-05-19 12:10] LABS: BILIRUBIN,TOTAL 0.2 mg/dL (0.2-1); BLOOD UREA NITROGEN 25.4 mg/dL (7-18); CALCIUM 8.6 mg/dL (8.5-10.1); CREATININE 0.7 mg/dL (0.55-1.3); POTASSIUM 4.6 mmol/L (3.5-5.1); TOT PROT 6.2 g/dl (6.4-8.2)
[2019-05-19] MEDS ORDERED: VANCOMYCIN HCL 1,500 MG in DEXTROSE 5%-WATER - 500 ML IVPB ONE (15:09)
[2019-05-19] MEDS ORDERED: ACETAMINOPHEN 325 MG TABLET (FP) PO PRN (15:22)
--- NOTE | 2019-05-19 15:29 | HP ---
Admitting History and Physical - Primary Care Physician PCP: Jermaine Velasco - Admission History of Present Illness: The patient is a 59 year old female with a history of HLD, DM, morbid Obesity who send for evaluation of a wound to the right lower extremity. The patient reports that she has had a wound to the right lower extremity for the past several months that has been managed on an outpatient basis with antibiotics. She has required admission in the past due to MRSA infection in the wound. She had a reported wound culture performed 1 week ago that was positive for MRSA and presents for admission for IV antibiotics. The patient reports increased purulent drainage from the wound over the past several weeks but otherwise denies fevers, chills, SOB, chest pain, nausea, vomiting, abdominal pain, or changes with urination or bowel movements. Now send for i/v abx by ID Pt failed out pt treatment -- even with Linzoid Being followed at wound care ctr-- Tamika Wong History Source: Patient Limitations to Obtaining History: No Limitations - Past Medical History PARLIAMENTARY COUNSEL: Yes: Other (morbid obesity) Musculoskeletal: Yes: Osteoarthritis (knees) Endocrine: Yes: Diabetes Mellitus - Smoking History Smoking history: Never smoked Have you smoked in the past 12 months: No - Alcohol/Substance Use Hx Alcohol Use: No History of Substance Use: reports: Marijuana (smokes daily) - Social History ADL: Independent Home Medications - Allergies Allergies/Adverse Reactions: Allergies Allergy/AdvReac Type Severity Reaction Status Date / Time adhesive tape AdvReac Intermediate Hives Verified 05/19/19 10:37 - Home Medications Home Medications: Ambulatory Orders Atorvastatin Ca 1 tab PO HS 04/10/16 Enalapril Maleate 5 mg PO DAILY 04/10/16 Furosemide 40 mg PO BID 04/10/16 Metformin HCl 500 mg PO BID 04/10/16 Multivitamin 1 tab PO DAILY 04/10/16 Gabapentin [Neurontin -] 300 mg PO TID 12/09/18 Insulin Lispro Protamin/Lispro [Humalog Mix 75-25 Kwikpen] 50 unit SQ BID Magnesium Oxide [Magnesium] 400 mg PO ASDIR 12/12/18 Mv-Min/FA/Vit K/Lycop/Lut/Zeax [Ocuvite Eye Plus Multi Tablet] 1 each PO ASDIR 12/12/18 [place]-3S/Dha/Epa/Fish Oil/D3 [[place]-3 + D Softgel] 1 each PO DAILY 12/12/18 Collagenase Clostridium Hist. [Santyl -] 1 applic TP DAILY 30 Days #30 tube ASA - 81 mg PO DAILY 03/29/19 Ibuprofen 800 mg PO TID 05/19/19 Liraglutide [Victoza -] 1.8 mg SQ DAILY@0700 05/19/19 Review of Systems - Review of Systems Constitutional: reports: No Symptoms Eyes: reports: No Symptoms HENT: reports: No Symptoms Neck: reports: No Symptoms Cardiovascular: reports: No Symptoms Respiratory: reports: No Symptoms Gastrointestinal: reports: No Symptoms Genitourinary: reports: No Symptoms Musculoskeletal: reports: No Symptoms Integumentary: reports: Wound Neurological: reports: No Symptoms Endocrine: reports: No Symptoms Hematology/Lymphatic: reports: No Symptoms Physical Examination Vital Signs: Vital Signs Temperature 98.1 F 05/19/19 14:44 Pulse Rate 70 05/19/19 14:44 Respiratory Rate 22 H 05/19/19 14:44 Blood Pressure 113/68 05/19/19 14:44 O2 Sat by Pulse Oximetry (%) 98 05/19/19 14:44 Constitutional: Yes: No Distress, Calm Eyes: Yes: Conjunctiva Clear Neck: Yes: Supple Cardiovascular: Yes: Regular Rate and Rhythm Respiratory: Yes: CTA Bilaterally Gastrointestinal: Yes: Abdomen, Obese Edema: No Wound/Incision: Yes: Dressing Dry and Intact Neurological: Yes: Alert Psychiatric: Yes: Alert Labs: CBC, BMP 05/19/19 11:28 05/19/19 11:28 Problem List - Problems (1) MRSA (methicillin resistant Staphylococcus aureus) infection Problems reviewed: Yes Code(s): A49.02 - METHICILLIN RESIS STAPH INFECTION, UNSP SITE (2) Diabetic leg 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 Problems reviewed: Yes Code(s): E10.622 - TYPE 1 DIABETES MELLITUS WITH OTHER SKIN ULCER; L97.909 - NON -PRS CHRONIC ULC UNSP PRT OF UNSP LOW LEG W UNSP SEVERITY (3) Non-healing wound of lower extremity Problems reviewed: Yes Code(s): S81.809A - UNSPECIFIED OPEN WOUND, UNSPECIFIED LOWER LEG, INIT ENCNTR Qualifiers: Encounter type: initial encounter Laterality: right Qualified Code(s): S81.801A - Unspecified open wound, right lower leg, initial encounter (4) Morbid obesity Problems reviewed: Yes Code(s): E66.01 - MORBID (SEVERE) OBESITY DUE TO EXCESS CALORIES Assessment/Plan Discussed with Pt Abx- Vanco Monitor levels f/u labs Monitor BGm dvt prophylaxis i/d to follow orders written further recommendations per clinical course Will follow
[2019-05-19 15:50] VITALS: BMI 71.8
[2019-05-19] MEDS ORDERED: PT OWN MED DRAWER 7, Y5N ONE (16:50)
[2019-05-19] MEDS: INSULIN SLIDING SCALE (NOVOLOG) 1 VIAL SQ SCH (17:14)
[2019-05-19] MEDS: ASPIRIN COATED 81 MG TABLET.EC PO SCH (17:14)
[2019-05-19] MEDS: GABAPENTIN 300 MG CAPSULE (FP) PO SCH (21:52)
[2019-05-19] MEDS ORDERED: ONDANSETRON 4 MG TABLET PO ONE (21:53)
[2019-05-19] MEDS ORDERED: ATORVASTATIN CA PO SCH (22:00)
[2019-05-20] MEDS: GABAPENTIN 300 MG CAPSULE (FP) PO SCH ×3 (05:19→22:01)
[2019-05-20] MEDS ORDERED: INSULIN (NOVOLOG MIX 70/30) 100 UNITS/ML MDV SQ ONE (05:31)
[2019-05-20] MEDS ORDERED: INSULIN (NOVOLOG) ASPART 100 UNITS/ML 10ML VIAL ONE (05:32)
[2019-05-20] MEDS: INSULIN SLIDING SCALE (NOVOLOG) 1 VIAL SQ SCH ×2 (06:00→18:05)
[2019-05-20] MEDS: LIRAGLUTIDE 0.6 MG/0.1 ML PEN.INJCTR SQ SCH (06:57)
[2019-05-20] MEDS: INSULIN (NOVOLOG MIX 70/30) 100 UNITS/ML MDV SQ SCH ×2 (06:57→18:07)
[2019-05-20] MEDS: FUROSEMIDE 40 MG TABLET (FP) PO SCH ×2 (07:38→15:22)
[2019-05-20 08:12] LABS: BASO % 0.4 % (0-2.0); EOS % 2.2 % (0-4.5); HEMOGLOBIN 12.7 GM/dL (10.7-15.3); LYMPH % 11.5 % (8-40); MCHC 32.7 g/dl (32.0-36.0); MEAN CELL VOLUME 91.7 fl (80-96); MEAN PLT VOLUME 8.6 fl (7.5-11.1); MONO % 6.8 % (3.8-10.2); NEUT % 79.1 % (42.8-82.8); PLATELET COUNT 253 K/MM3 (134-434); RBC 4.25 M/mm3 (3.60-5.2); RDW 14.2 % (11.6-15.6); WHITE BLOOD COUNT 11.9 K/mm3 (4.0-10.0)
[2019-05-20 08:33] LABS: INR 1.03 (0.83-1.09); PROTHROMBIN TIME (PATIENT) 12.2 SEC (9.7-13.0)
[2019-05-20 08:46] LABS: CHOLESTEROL 158 mg/dL (50-200); HDL CHOLESTEROL 36 mg/dL (40-60); LDL CHOLESTEROL (ONLY SJRH) 99 mg/dL (5-100); TRIGLYCERIDES 151 mg/dL (0-150)
[2019-05-20 08:49] LABS: ALBUMIN 2.8 g/dl (3.4-5.0); BILIRUBIN,TOTAL 0.4 mg/dL (0.2-1); BLOOD UREA NITROGEN 15.9 mg/dL (7-18); CALCIUM 8.5 mg/dL (8.5-10.1); CREATININE 0.6 mg/dL (0.55-1.3); POTASSIUM 4.4 mmol/L (3.5-5.1); TOT PROT 5.8 g/dl (6.4-8.2)
[2019-05-20] MEDS: ENALAPRIL MALEATE 5 MG TABLET (FP) PO SCH (10:04)
[2019-05-20] MEDS: ASPIRIN COATED 81 MG TABLET.EC PO SCH (10:04)
[2019-05-20] MEDS: ENOXAPARIN NA (PORCINE) 40 MG/0.4 ML DISP.SYRIN SQ SCH (10:04)
--- NOTE | 2019-05-20 10:22 | EKG ---
Test Reason : Blood Pressure : / mmHG Vent. Rate : 070 BPM Atrial Rate : 070 BPM P-R Int : 178 ms QRS Dur : 108 ms QT Int : 396 ms P-R-T Axes : 056 013 023 degrees QTc Int : 427 ms NORMAL SINUS RHYTHM LOW VOLTAGE QRS INCOMPLETE LEFT BUNDLE BRANCH BLOCK BORDERLINE ECG WHEN COMPARED WITH ECG OF 12-DEC-2018 12:02, BORDERLINE CRITERIA FOR ANTERIOR INFARCT ARE NO LONGER PRESENT BORDERLINE CRITERIA FOR ANTEROLATERAL INFARCT ARE NO LONGER PRESENT Confirmed by STEPHANIE MADSEN MD ([id number]) on 05/20/2019 10:22:03 AM Referred By: Confirmed By:STEPHANIE MADSEN MD
--- NOTE | 2019-05-20 10:53 | CON.ID ---
Consult Consult Specialty:: infectious diseases Referred by:: Reason for Consultation:: non healing wound of the rt legs,mrsa - History of Present Illness Chief Complaint: cellulitis of the legs,non healing mrsa wound History of Present Illness: 59 year old female with a history of HLD, DM, morbid Obesity who send for evaluation of a wound to the right lower extremity. The patient reports that she has had a wound to the right lower extremity for the past several months that has been managed on an outpatient basis with antibiotics. She has required admission in the past due to MRSA infection in the wound. She had a reported wound culture performed 1 week ago that was positive for MRSA . The patient reports increased purulent drainage from the wound over the past several weeks but otherwise denies fevers, chills, SOB, chest pain, nausea, vomiting, abdominal pain, or changes with urination or bowel movements. also the leg has become more redder patient has failed out patient treatment also patients wounds had healed after getting iv abx - History Source History Provided By: Patient Limitations to Obtaining History: No Limitations - Past Medical History OPERATIONS DISPATCHER: Yes: Other (morbid obesity) Musculoskeletal: Yes: Osteoarthritis (knees) Endocrine: Yes: Diabetes Mellitus - Alcohol/Substance Use Hx Alcohol Use: No History of Substance Use: reports: Marijuana (smokes daily) - Smoking History Smoking history: Never smoked Have you smoked in the past 12 months: No - Social History ADL: Independent Home Medications - Allergies Allergies/Adverse Reactions: Allergies Allergy/AdvReac Type Severity Reaction Status Date / Time adhesive tape AdvReac Intermediate Hives Verified 05/19/19 10:37 - Home Medications Home Medications: Ambulatory Orders Atorvastatin Ca 1 tab PO HS 04/10/16 Enalapril Maleate 5 mg PO DAILY 04/10/16 Furosemide 40 mg PO BID 04/10/16 Metformin HCl 500 mg PO BID 04/10/16 Multivitamin 1 tab PO DAILY 04/10/16 Gabapentin [Neurontin -] 300 mg PO TID 12/09/18 Insulin Lispro Protamin/Lispro [Humalog Mix 75-25 Kwikpen] 50 unit SQ BID Magnesium Oxide [Magnesium] 400 mg PO ASDIR 12/12/18 Mv-Min/FA/Vit K/Lycop/Lut/Zeax [Ocuvite Eye Plus Multi Tablet] 1 each PO ASDIR 12/12/18 [place]-3S/Dha/Epa/Fish Oil/D3 [[place]-3 + D Softgel] 1 each PO DAILY 12/12/18 Collagenase Clostridium Hist. [Santyl -] 1 applic TP DAILY 30 Days #30 tube ASA - 81 mg PO DAILY 03/29/19 Ibuprofen 800 mg PO TID 05/19/19 Liraglutide [Victoza -] 1.8 mg SQ DAILY@0700 05/19/19 Review of Systems - Review of Systems Constitutional: reports: No Symptoms Eyes: reports: No Symptoms HENT: reports: No Symptoms Neck: reports: No Symptoms Cardiovascular: reports: No Symptoms Respiratory: reports: No Symptoms Gastrointestinal: reports: No Symptoms Genitourinary: reports: No Symptoms Musculoskeletal: reports: Other Integumentary: reports: Erythema, Wound Neurological: reports: No Symptoms Endocrine: reports: No Symptoms Hematology/Lymphatic: reports: No Symptoms Psychiatric: reports: No Symptoms Physical Exam Vital Signs: Vital Signs Temperature 99.2 F 05/20/19 06:00 Pulse Rate 90 05/20/19 06:00 Respiratory Rate 20 05/20/19 06:00 Blood Pressure 146/63 05/20/19 06:00 O2 Sat by Pulse Oximetry (%) 95 05/19/19 21:00 Constitutional: Yes: Well Nourished, Calm, Mild Distress, Obese Eyes: Yes: Conjunctiva Clear HENT: Yes: Atraumatic, Normocephalic Neck: Yes: Supple, Trachea Midline Cardiovascular: Yes: Regular Rate and Rhythm Respiratory: Yes: Regular, CTA Bilaterally Gastrointestinal: Yes: Normal Bowel Sounds, Soft Musculoskeletal: Yes: WNL Extremities: Yes: Erythema (rt), Other Wound/Incision: Yes: Dressing Dry and Intact, Dressing Removed, Draining Neurological: Yes: Alert, Oriented Psychiatric: Yes: Alert, Oriented Labs: CBC, BMP 05/20/19 07:15 05/20/19 06:00 Assessment/Plan Problem List - Problems (1) MRSA (methicillin resistant Staphylococcus aureus) infection Problems reviewed: Yes Code(s): A49.02 - METHICILLIN RESIS STAPH INFECTION, UNSP SITE (2) Diabetic leg 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 Problems reviewed: Yes Code(s): E10.622 - TYPE 1 DIABETES MELLITUS WITH OTHER SKIN ULCER; L97.909 - NON -PRS CHRONIC ULC UNSP PRT OF UNSP LOW LEG W UNSP SEVERITY (3) Non-healing wound of lower extremity Problems reviewed: Yes Code(s): S81.809A - UNSPECIFIED OPEN WOUND, UNSPECIFIED LOWER LEG, INIT ENCNTR Qualifiers: Encounter type: initial encounter Laterality: right Qualified Code(s): S81.801A - Unspecified open wound, right lower leg, initial encounter (4) Morbid obesity Problems reviewed: Yes Code(s): E66.01 - MORBID (SEVERE) OBESITY DUE TO EXCESS CALORIES plan we will continue vanco wound care
[2019-05-20] MEDS ORDERED: VANCOMYCIN HCL 1,500 MG/500 ML BAG IVPB SCH (11:15)
--- NOTE | 2019-05-20 13:47 | PN ---
Progress Note (short form) - Note Progress Note: no complaints she is disappointed that she needs rn long term care iv Vital Signs - 24 hr 05/19/19 05/19/19 05/19/19 14:44 15:36 16:06 Temperature 98.1 F 97.9 F 97.9 F Pulse Rate 70 70 Pulse Rate [ 70 Radial] Respiratory 22 H 20 20 Rate Blood Pressure 129/71 129/71 Blood Pressure 113/68 [Left Arm] O2 Sat by Pulse 98 93 L Oximetry (%) 05/19/19 05/19/19 05/20/19 20:00 21:00 06:00 Temperature 98.1 F 99.2 F Pulse Rate 78 90 Pulse Rate [ Radial] Respiratory 20 20 Rate Blood Pressure 139/65 146/63 Blood Pressure [Left Arm] O2 Sat by Pulse 95 Oximetry (%) Current Medications Generic Name Dose Route Start Last Admin Trade Name Freq PRN Reason Stop Dose Admin Acetaminophen 650 mg 05/19/19 15:22 Tylenol - PO Q4H PRN PAIN LEVEL 4 - 6 Aspirin 81 mg 05/19/19 15:30 05/20/19 10:04 Ecotrin - PO 81 mg DAILY [facility] Administration Enalapril Maleate 5 mg 05/20/19 10:00 05/20/19 10:04 Vasotec - PO 5 mg DAILY [facility] Administration Enoxaparin Sodium 40 mg 05/20/19 10:00 05/20/19 10:04 Lovenox - SQ 40 mg DAILY [facility] Administration Furosemide 40 mg 05/20/19 06:00 05/20/19 07:38 Lasix - PO 40 mg BIDLASIX [facility] Administration Gabapentin 300 mg 05/19/19 22:00 05/20/19 05:19 Neurontin - PO 300 mg TID [facility] Administration Vancomycin HCl 1,500 mg/ 500 mls @ 166.667 mls/hr 05/20/19 11:33 Dextrose IVPB Q12H [facility] Protocol Insulin Aspart 50 units 05/20/19 07:00 05/20/19 06:57 Novolog Mix 70/30 Vial SQ 50 units BIDAC [facility] Administration Insulin Aspart 1 vial 05/19/19 16:30 05/20/19 06:00 Novolog Vial Sliding Scale - SQ Not Given BIDAC [facility] Protocol Liraglutide 1.8 mg 05/20/19 07:00 05/20/19 06:57 Victoza - SQ 1.8 mg DAILY@0700 [facility] Administration Non-Formulary Medication 1 tab 05/19/19 22:00 Atorvastatin Ca PO HS [facility] Laboratory Results - last 24 hr 05/19/19 05/20/19 05/20/19 16:58 05:44 06:00 WBC RBC Hgb Hct MCV MCH MCHC RDW Plt Count MPV Absolute Neuts (auto) Neutrophils % Lymphocytes % Monocytes % Eosinophils % Basophils % Nucleated RBC % PT with INR INR Sodium 144 Potassium 4.4 Chloride 109 H Carbon Dioxide 28 Anion Gap 6 L BUN 15.9 Creatinine 0.6 Est GFR (CKD-EPI)AfAm 116.45 Est GFR (CKD-EPI)NonAf 100.47 POC Glucometer 96 143 Random Glucose 135 H Hemoglobin A1c % Calcium 8.5 Total Bilirubin 0.4 AST 12 L ALT 26 Alkaline Phosphatase 65 Total Protein 5.8 L Albumin 2.8 L Triglycerides Cholesterol Total LDL Cholesterol HDL Cholesterol TSH 0.71 05/20/19 05/20/19 05/20/19 07:15 07:15 07:15 WBC 11.9 H RBC 4.25 Hgb 12.7 Hct 39.0 MCV 91.7 MCH 30.0 MCHC 32.7 RDW 14.2 Plt Count 253 MPV 8.6 Absolute Neuts (auto) 9.4 H Neutrophils % 79.1 Lymphocytes % 11.5 D Monocytes % 6.8 Eosinophils % 2.2 Basophils % 0.4 Nucleated RBC % 0 PT with INR 12.20 INR 1.03 Sodium Potassium Chloride Carbon Dioxide Anion Gap BUN Creatinine Est GFR (CKD-EPI)AfAm Est GFR (CKD-EPI)NonAf POC Glucometer Random Glucose Hemoglobin A1c % Calcium Total Bilirubin AST ALT Alkaline Phosphatase Total Protein Albumin Triglycerides 151 H Cholesterol 158 Total LDL Cholesterol 99 HDL Cholesterol 36 L TSH 05/20/19 05/20/19 07:15 11:25 WBC RBC Hgb Hct MCV MCH MCHC RDW Plt Count MPV Absolute Neuts (auto) Neutrophils % Lymphocytes % Monocytes % Eosinophils % Basophils % Nucleated RBC % PT with INR INR Sodium Potassium Chloride Carbon Dioxide Anion Gap BUN Creatinine Est GFR (CKD-EPI)AfAm Est GFR (CKD-EPI)NonAf POC Glucometer 115 Random Glucose Hemoglobin A1c % 6.0 Calcium Total Bilirubin AST ALT Alkaline Phosphatase Total Protein Albumin Triglycerides Cholesterol Total LDL Cholesterol HDL Cholesterol TSH S1 S2 RRR lungs decreased Abd- soft, Obese Edema Right leg cellulitis, dressing in place PLAN Spoke with ID needs picc line-- for Wednesday iv antibiotics VNS check vanco troughs Problem List - Problems (1) Diabetic leg 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 Code(s): E10.622 - TYPE 1 DIABETES MELLITUS WITH OTHER SKIN ULCER; L97.909 - NON -PRS CHRONIC ULC UNSP PRT OF UNSP LOW LEG W UNSP SEVERITY (2) MRSA (methicillin resistant Staphylococcus aureus) infection Code(s): A49.02 - METHICILLIN RESIS STAPH INFECTION, UNSP SITE (3) Non-healing wound of lower extremity Code(s): S81.809A - UNSPECIFIED OPEN WOUND, UNSPECIFIED LOWER LEG, INIT ENCNTR Qualifiers: Encounter type: initial encounter Laterality: right Qualified Code(s): S81.801A - Unspecified open wound, right lower leg, initial encounter (4) Insulin dependent diabetes mellitus Code(s): E11.9 - TYPE 2 DIABETES MELLITUS WITHOUT COMPLICATIONS; Z79.4 - LOCK FITTER (CURRENT) USE OF INSULIN (5) Morbid obesity Code(s): E66.01 - MORBID (SEVERE) OBESITY DUE TO EXCESS CALORIES (6) Venous stasis ulcer Code(s): I83.009 - VARICOSE VEINS OF UNSP LOWER EXTREMITY W ULCER OF UNSP SITE; L97.909 - NON-PRS CHRONIC ULC UNSP PRT OF UNSP LOW LEG W UNSP SEVERITY
[2019-05-20] MEDS: VANCOMYCIN HCL 1,500 MG in DEXTROSE 5%-WATER - 500 ML IVPB SCH ×2 (15:14→22:35)
[2019-05-21] MEDS: FUROSEMIDE 40 MG TABLET (FP) PO SCH ×3 (06:17→14:16)
[2019-05-21] MEDS: GABAPENTIN 300 MG CAPSULE (FP) PO SCH ×3 (06:17→22:18)
[2019-05-21] MEDS: INSULIN (NOVOLOG MIX 70/30) 100 UNITS/ML MDV SQ SCH ×2 (06:18→17:25)
[2019-05-21] MEDS: INSULIN SLIDING SCALE (NOVOLOG) 1 VIAL SQ SCH ×2 (06:23→17:22)
[2019-05-21] MEDS ORDERED: PT OWN MED DRAWER 7, Y5N ONE ×3 (06:25→10:51)
[2019-05-21] MEDS: LIRAGLUTIDE 0.6 MG/0.1 ML PEN.INJCTR SQ SCH (06:28)
--- NOTE | 2019-05-21 08:15 | PN ---
Progress Note, Physician History of Present Illness: stable no new issues leg looks better - Current Medication List Current Medications: Active Medications Acetaminophen (Tylenol -) 650 mg PO Q4H PRN PRN Reason: PAIN LEVEL 4 - 6 Aspirin (Ecotrin -) 81 mg PO DAILY [facility] Last Admin: 05/20/19 10:04 Dose: 81 mg Enalapril Maleate (Vasotec -) 5 mg PO DAILY [facility] Last Admin: 05/20/19 10:04 Dose: 5 mg Enoxaparin Sodium (Lovenox -) 40 mg SQ DAILY [facility] Last Admin: 05/20/19 10:04 Dose: 40 mg Furosemide (Lasix -) 40 mg PO BIDLASIX [facility] Last Admin: 05/21/19 06:25 Dose: Not Given Gabapentin (Neurontin -) 300 mg PO TID [facility] Last Admin: 05/21/19 06:17 Dose: 300 mg Vancomycin HCl 1,500 mg/ (Dextrose) 500 mls @ 166.667 mls/hr IVPB Q12H [facility]; Protocol Last Admin: 05/20/19 22:35 Dose: 166.667 mls/hr Insulin Aspart (Novolog Mix 70/30 Vial) 50 units SQ BIDAC [facility] Last Admin: 05/21/19 06:18 Dose: 50 units Insulin Aspart (Novolog Vial Sliding Scale -) 1 vial SQ BIDAC [facility]; Protocol Last Admin: 05/21/19 06:23 Dose: Not Given Liraglutide (Victoza -) 1.8 mg SQ DAILY@0700 [facility] Last Admin: 05/21/19 06:28 Dose: 1.8 mg Non-Formulary Medication (Atorvastatin Ca) 1 tab PO HS [facility] - Objective Vital Signs: Vital Signs Temperature 97.8 F 05/21/19 05:53 Pulse Rate 65 05/21/19 05:53 Respiratory Rate 20 05/21/19 05:53 Blood Pressure 151/59 L 05/21/19 05:53 O2 Sat by Pulse Oximetry (%) 95 05/20/19 21:00 Constitutional: Yes: No Distress, Calm, Obese Cardiovascular: Yes: S1, S2 Respiratory: Yes: Regular, CTA Bilaterally Gastrointestinal: Yes: Normal Bowel Sounds, Soft Musculoskeletal: Yes: WNL Extremities: Yes: Erythema, Other Neurological: Yes: Alert, Oriented Psychiatric: Yes: Alert, Oriented Labs: CBC, BMP 05/20/19 07:15 05/20/19 06:00 INR, PTT INR 1.03 (0.83-1.09) 05/20/19 07:15 Assessment/Plan Problem List - Problems (1) MRSA (methicillin resistant Staphylococcus aureus) infection Problems reviewed: Yes Code(s): A49.02 - METHICILLIN RESIS STAPH INFECTION, UNSP SITE (2) Diabetic leg 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 Problems reviewed: Yes Code(s): E10.622 - TYPE 1 DIABETES MELLITUS WITH OTHER SKIN ULCER; L97.909 - NON -PRS CHRONIC ULC UNSP PRT OF UNSP LOW LEG W UNSP SEVERITY (3) Non-healing wound of lower extremity Problems reviewed: Yes Code(s): S81.809A - UNSPECIFIED OPEN WOUND, UNSPECIFIED LOWER LEG, INIT ENCNTR Qualifiers: Encounter type: initial encounter Laterality: right Qualified Code(s): S81.801A - Unspecified open wound, right lower leg, initial encounter (4) Morbid obesity Problems reviewed: Yes Code(s): E66.01 - MORBID (SEVERE) OBESITY DUE TO EXCESS CALORIES plan continue vanco vanco trough before the 4th dose change dressing on the leg rest as per the team
--- NOTE | 2019-05-21 10:19 | PN ---
Progress Note (short form) - Note Progress Note: anxious about the picc line and she wants to return to work Vital Signs - 24 hr 05/20/19 05/20/19 05/20/19 15:56 20:09 21:00 Temperature 97.9 F 97.9 F Pulse Rate 78 81 Respiratory 20 20 20 Rate Blood Pressure 134/74 112/74 O2 Sat by Pulse 95 Oximetry (%) 05/21/19 05:53 Temperature 97.8 F Pulse Rate 65 Respiratory 20 Rate Blood Pressure 151/59 L O2 Sat by Pulse Oximetry (%) Current Medications Generic Name Dose Route Start Last Admin Trade Name Freq PRN Reason Stop Dose Admin Acetaminophen 650 mg 05/19/19 15:22 Tylenol - PO Q4H PRN PAIN LEVEL 4 - 6 Aspirin 81 mg 05/19/19 15:30 05/20/19 10:04 Ecotrin - PO 81 mg DAILY [facility] Administration Enalapril Maleate 5 mg 05/20/19 10:00 05/20/19 10:04 Vasotec - PO 5 mg DAILY [facility] Administration Enoxaparin Sodium 40 mg 05/20/19 10:00 05/20/19 10:04 Lovenox - SQ 40 mg DAILY [facility] Administration Furosemide 40 mg 05/20/19 06:00 05/21/19 06:25 Lasix - PO Not Given BIDLASIX [facility] Gabapentin 300 mg 05/19/19 22:00 05/21/19 06:17 Neurontin - PO 300 mg TID [facility] Administration Vancomycin HCl 1,500 mg/ 500 mls @ 166.667 mls/hr 05/20/19 11:33 05/20/19 22: 35 Dextrose IVPB 166.667 mls/hr Q12H [facility] Administration Protocol Insulin Aspart 50 units 05/20/19 07:00 05/21/19 06:18 Novolog Mix 70/30 Vial SQ 50 units BIDAC [facility] Administration Insulin Aspart 1 vial 05/19/19 16:30 05/21/19 06:23 Novolog Vial Sliding Scale - SQ Not Given BIDAC [facility] Protocol Liraglutide 1.8 mg 05/20/19 07:00 05/21/19 06:28 Victoza - SQ 1.8 mg DAILY@0700 [facility] Administration Non-Formulary Medication 1 tab 05/19/19 22:00 Atorvastatin Ca PO HS [facility] Laboratory Results - last 24 hr 05/20/19 05/20/19 05/21/19 11:25 16:55 06:22 POC Glucometer 115 135 109 S1 S2 RRR Lungs decreased Abd-soft, NT Edema erythema right leg dressing noted PLAN MRSA wound wound care DM control needs picc line in AM- dc home on assisted antibiotics Problem List - Problems (1) Diabetic leg 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 Code(s): E10.622 - TYPE 1 DIABETES MELLITUS WITH OTHER SKIN ULCER; L97.909 - NON -PRS CHRONIC ULC UNSP PRT OF UNSP LOW LEG W UNSP SEVERITY (2) MRSA (methicillin resistant Staphylococcus aureus) infection Code(s): A49.02 - METHICILLIN RESIS STAPH INFECTION, UNSP SITE (3) Non-healing wound of lower extremity Code(s): S81.809A - UNSPECIFIED OPEN WOUND, UNSPECIFIED LOWER LEG, INIT ENCNTR Qualifiers: Encounter type: initial encounter Laterality: right Qualified Code(s): S81.801A - Unspecified open wound, right lower leg, initial encounter (4) Insulin dependent diabetes mellitus Code(s): E11.9 - TYPE 2 DIABETES MELLITUS WITHOUT COMPLICATIONS; Z79.4 - CARE HOME (CURRENT) USE OF INSULIN (5) Morbid obesity Code(s): E66.01 - MORBID (SEVERE) OBESITY DUE TO EXCESS CALORIES (6) Venous stasis ulcer Code(s): I83.009 - VARICOSE VEINS OF UNSP LOWER EXTREMITY W ULCER OF UNSP SITE; L97.909 - NON-PRS CHRONIC ULC UNSP PRT OF UNSP LOW LEG W UNSP SEVERITY
[2019-05-21] MEDS: ASPIRIN COATED 81 MG TABLET.EC PO SCH (10:23)
[2019-05-21] MEDS: ENALAPRIL MALEATE 5 MG TABLET (FP) PO SCH (10:23)
[2019-05-21] MEDS: ENOXAPARIN NA (PORCINE) 40 MG/0.4 ML DISP.SYRIN SQ SCH (10:23)
[2019-05-21] MEDS: VANCOMYCIN HCL 1,500 MG in DEXTROSE 5%-WATER - 500 ML IVPB SCH ×2 (11:34→23:30)
[2019-05-21] MEDS ORDERED: INSULIN (NOVOLOG MIX 70/30) 100 UNITS/ML MDV SQ ONE (17:38)
[2019-05-21] MEDS ORDERED: INSULIN (NOVOLOG) ASPART 100 UNITS/ML 10ML VIAL ONE (17:38)
[2019-05-22] MEDS: INSULIN SLIDING SCALE (NOVOLOG) 1 VIAL SQ SCH ×2 (06:44→17:13)
[2019-05-22] MEDS ORDERED: PT OWN MED DRAWER 7, Y5N ONE ×2 (06:49→17:15)
[2019-05-22] MEDS: INSULIN (NOVOLOG MIX 70/30) 100 UNITS/ML MDV SQ SCH ×2 (07:01→17:17)
[2019-05-22] MEDS: GABAPENTIN 300 MG CAPSULE (FP) PO SCH ×2 (07:01→14:22)
[2019-05-22] MEDS: FUROSEMIDE 40 MG TABLET (FP) PO SCH ×2 (07:01→14:23)
[2019-05-22] MEDS: LIRAGLUTIDE 0.6 MG/0.1 ML PEN.INJCTR SQ SCH (07:02)
[2019-05-22 08:10] LABS: BASO % 1.2 % (0-2.0); HEMATOCRIT 38.9 % (32.4-45.2); HEMOGLOBIN 12.9 GM/dL (10.7-15.3); LYMPH % 26.2 % (8-40); MCH 29.9 pg (25.7-33.7); MEAN CELL VOLUME 90.6 fl (80-96); MEAN PLT VOLUME 8.2 fl (7.5-11.1); NEUT % 58.6 % (42.8-82.8); PLATELET COUNT 242 K/MM3 (134-434); RBC 4.29 M/mm3 (3.60-5.2); RDW 14.2 % (11.6-15.6); WHITE BLOOD COUNT 7.3 K/mm3 (4.0-10.0)
[2019-05-22 08:12] LABS: ALBUMIN 2.8 g/dl (3.4-5.0); BILIRUBIN,TOTAL 0.4 mg/dL (0.2-1); BLOOD UREA NITROGEN 13.4 mg/dL (7-18); CALCIUM 8.4 mg/dL (8.5-10.1); CREATININE 0.7 mg/dL (0.55-1.3); POTASSIUM 3.8 mmol/L (3.5-5.1); TOT PROT 5.6 g/dl (6.4-8.2)
[2019-05-22] MEDS: ASPIRIN COATED 81 MG TABLET.EC PO SCH (09:26)
[2019-05-22] MEDS: ENOXAPARIN NA (PORCINE) 40 MG/0.4 ML DISP.SYRIN SQ SCH (09:26)
[2019-05-22] MEDS: ENALAPRIL MALEATE 5 MG TABLET (FP) PO SCH (09:26)
--- NOTE | 2019-05-22 10:44 | PN ---
Progress Note, Physician History of Present Illness: stable no new issues leg looks better - Current Medication List Current Medications: Active Medications Acetaminophen (Tylenol -) 650 mg PO Q4H PRN PRN Reason: PAIN LEVEL 4 - 6 Aspirin (Ecotrin -) 81 mg PO DAILY [facility] Last Admin: 05/22/19 09:26 Dose: 81 mg Enalapril Maleate (Vasotec -) 5 mg PO DAILY [facility] Last Admin: 05/22/19 09:26 Dose: 5 mg Enoxaparin Sodium (Lovenox -) 40 mg SQ DAILY [facility] Last Admin: 05/22/19 09:26 Dose: 40 mg Furosemide (Lasix -) 40 mg PO BIDLASIX [facility] Last Admin: 05/22/19 07:01 Dose: Not Given Gabapentin (Neurontin -) 300 mg PO TID [facility] Last Admin: 05/22/19 07:01 Dose: 300 mg Vancomycin HCl 1,500 mg/ (Dextrose) 500 mls @ 166.667 mls/hr IVPB Q12H [facility]; Protocol Last Admin: 05/21/19 23:30 Dose: 166.667 mls/hr Insulin Aspart (Novolog Mix 70/30 Vial) 50 units SQ BIDAC [facility] Last Admin: 05/22/19 07:01 Dose: Not Given Insulin Aspart (Novolog Vial Sliding Scale -) 1 vial SQ BIDAC [facility]; Protocol Last Admin: 05/22/19 06:44 Dose: Not Given Liraglutide (Victoza -) 1.8 mg SQ DAILY@0700 [facility] Last Admin: 05/22/19 07:02 Dose: 1.8 mg Non-Formulary Medication (Atorvastatin Ca) 1 tab PO HS [facility] - Objective Vital Signs: Vital Signs Temperature 98.4 F 05/22/19 06:00 Pulse Rate 74 05/22/19 06:00 Respiratory Rate 20 05/22/19 06:00 Blood Pressure 130/64 05/22/19 06:00 O2 Sat by Pulse Oximetry (%) 95 05/21/19 21:00 Constitutional: Yes: No Distress, Calm Cardiovascular: Yes: S1, S2 Respiratory: Yes: Regular, CTA Bilaterally Gastrointestinal: Yes: Normal Bowel Sounds, Soft Musculoskeletal: Yes: WNL Extremities: Yes: Other Wound/Incision: Yes: Dressing Dry and Intact Neurological: Yes: Alert, Oriented Psychiatric: Yes: Alert, Oriented Labs: CBC, BMP 05/22/19 07:25 05/22/19 07:25 INR, PTT INR 1.03 (0.83-1.09) 05/20/19 07:15 Assessment/Plan Problem List - Problems (1) MRSA (methicillin resistant Staphylococcus aureus) infection Problems reviewed: Yes Code(s): A49.02 - METHICILLIN RESIS STAPH INFECTION, UNSP SITE (2) Diabetic leg 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 Problems reviewed: Yes Code(s): E10.622 - TYPE 1 DIABETES MELLITUS WITH OTHER SKIN ULCER; L97.909 - NON -PRS CHRONIC ULC UNSP PRT OF UNSP LOW LEG W UNSP SEVERITY (3) Non-healing wound of lower extremity Problems reviewed: Yes Code(s): S81.809A - UNSPECIFIED OPEN WOUND, UNSPECIFIED LOWER LEG, INIT ENCNTR Qualifiers: Encounter type: initial encounter Laterality: right Qualified Code(s): S81.801A - Unspecified open wound, right lower leg, initial encounter (4) Morbid obesity Problems reviewed: Yes Code(s): E66.01 - MORBID (SEVERE) OBESITY DUE TO EXCESS CALORIES plan continue vanco will see what the vanco trough is wound care rest as per the team
[2019-05-22 11:21] VITALS: TEMP 98
--- NOTE | 2019-05-22 11:48 | DS ---
Physical Examination Vital Signs: Vital Signs Temperature 98.0 F 05/22/19 10:00 Pulse Rate 70 05/22/19 10:00 Respiratory Rate 20 05/22/19 10:00 Blood Pressure 130/60 05/22/19 10:00 O2 Sat by Pulse Oximetry (%) 95 05/22/19 09:00 Findings/Remarks: feels well. no complains. chart reviewed Constitutional: Yes: No Distress, Calm, Obese Eyes: Yes: Conjunctiva Clear Neck: Yes: Supple Cardiovascular: Yes: Regular Rate and Rhythm Respiratory: Yes: Diminished Gastrointestinal: Yes: Abdomen, Obese Edema: LLE: 1+, RLE: 1+ Wound/Incision: Yes: Dressing Dry and Intact Neurological: Yes: Alert Labs: CBC, BMP 05/22/19 07:25 05/22/19 07:25 Discharge Summary Problems reviewed: Yes Reason For Visit: NON HEALING WOUND OF LOWER EXTREMITY Current Active Problems Diabetic leg 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 (Acute) MRSA (methicillin resistant Staphylococcus aureus) infection (Acute) Non-healing wound of lower extremity (Acute) Hospital Course: Admitted for Non healing right lower extremity wound MRSA+ Treated with Vanco Failed out pt Linezoid treatmen D/W Dr. Weiss today Plan to d/c home with intermediate manager abx picc line Dose and duration Dr. Weiss will decide d/w case liner also as well as rn Weekly vanco trough levels needed f/u at wound care/ Dr. Weiss as advised f/u in office in week Anticipate d.c later today meds reconcilled also Condition: Stable - Instructions Referrals: Jermaine Velasco MD [Primary Care Provider] - - Home Medications Comprehensive Discharge Medication List: Ambulatory Orders Atorvastatin Ca 1 tab PO HS 04/10/16 Enalapril Maleate 5 mg PO DAILY 04/10/16 Furosemide 40 mg PO BID 04/10/16 Metformin HCl 500 mg PO BID 04/10/16 Multivitamin 1 tab PO DAILY 04/10/16 Gabapentin [Neurontin -] 300 mg PO TID 12/09/18 Insulin Lispro Protamin/Lispro [Humalog Mix 75-25 Kwikpen] 50 unit SQ BID Magnesium Oxide [Magnesium] 400 mg PO ASDIR 12/12/18 Mv-Min/FA/Vit K/Lycop/Lut/Zeax [Ocuvite Eye Plus Multi Tablet] 1 each PO ASDIR 12/12/18 [place]-3S/Dha/Epa/Fish Oil/D3 [[place]-3 + D Softgel] 1 each PO DAILY 12/12/18 ASA - 81 mg PO DAILY 03/29/19 Ibuprofen 800 mg PO TID 05/19/19 Liraglutide [Victoza -] 1.8 mg SQ DAILY@0700 05/19/19 Acetaminophen [Tylenol .Regular Strength -] 650 mg PO Q4H PRN tablet 05/22/19 Insulin Sliding Scale [Novolog Vial Sliding Scale -] 1 vial SQ BIDAC units Vancomycin HCl 1,500 mg IVPB Q12H vial 05/22/19
[2019-05-22] MEDS: VANCOMYCIN HCL 1,500 MG in DEXTROSE 5%-WATER - 500 ML IVPB SCH (14:19)
[2019-05-22 14:53] VITALS: BP 118/60; PULSE 74
== END 2019-05-22 18:11 | disposition home health service (06) | DRG 638 ==
LOC: JER 10:09 → JERBED 11:06 → J6S 15:29
PROVIDERS: ADMIT Internal Medicine; ATTEND Internal Medicine
DX: E10.622 Type 1 diabetes mellitus with other skin ulcer (principal); Z68.45 Body mass index [BMI] 70 or greater, adult; L97.518 Non-pressure chronic ulcer of other part of right foot with other specified severity; L97.528 Non-pressure chronic ulcer of other part of left foot with other specified severity; S81.801A Unspecified open wound, right lower leg, initial encounter; E66.01 Morbid (severe) obesity due to excess calories; M17.12 Unilateral primary osteoarthritis, left knee; A49.02 Methicillin resistant Staphylococcus aureus infection, unspecified site; Z79.4 Long term (current) use of insulin; I83.015 Varicose veins of right lower extremity with ulcer other part of foot; I83.025 Varicose veins of left lower extremity with ulcer other part of foot
CPT/HCPCS: 36415; 36569; 77001-TC-FY; 80053; 80061; 82962; 83036; 83721; 84443; 85025; 85610; 93005; 93010; 99284-25; C1751; G0463-25; G0480

== ENCOUNTER 2020-01-05 12:47 | Inpatient (IN) | payer OTHER ==
[2020-01-05 12:55] VITALS: BMI 73.3
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
[2020-01-05] MEDS ORDERED: VANCOMYCIN HCL 1,500 MG in DEXTROSE 5%-WATER - 500 ML IVPB ONE (14:08)
[2020-01-05] MEDS ORDERED: CEFTRIAXONE 2,000 MG in DEXTROSE 5%-WATER - 50 ML IVPB ONE (14:10)
[2020-01-05] MEDS ORDERED: CEFTRIAXONE 2 GM/100 ML BAG IVPB ONE (15:07)
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
[2020-01-05 15:24] LABS: PROTHROMBIN TIME (PATIENT) 11.8 SEC (9.7-13.0)
[2020-01-05 15:26] LABS: ACTIVATED PTT 31.6 SECONDS (25.2-36.5)
[2020-01-05 15:42] LABS: BASO % 0.9 % (0-2.0); EOS % 2.3 % (0-4.5); HEMATOCRIT 45.1 % (32.4-45.2); HEMOGLOBIN 14.7 GM/dL (10.7-15.3); LYMPH % 28.8 % (8-40); MCH 29.4 pg (25.7-33.7); MCHC 32.6 g/dl (32.0-36.0); MEAN CELL VOLUME 90.2 fl (80-96); MEAN PLT VOLUME 8.5 fl (7.5-11.1); MONO % 7.4 % (3.8-10.2); NEUT % 60.6 % (42.8-82.8); PLATELET COUNT 302 K/MM3 (134-434); RBC 4.99 M/mm3 (3.60-5.2); RDW 14.1 % (11.6-15.6); WHITE BLOOD COUNT 10.2 K/mm3 (4.0-10.0)
[2020-01-05 16:02] LABS: ALBUMIN 3.5 g/dl (3.4-5.0); BILIRUBIN,TOTAL 0.4 mg/dL (0.2-1); BLOOD UREA NITROGEN 16.8 mg/dL (7-18); CALCIUM 8.9 mg/dL (8.5-10.1); CREATININE 0.8 mg/dL (0.55-1.3); POTASSIUM 4.2 mmol/L (3.5-5.1); TOT PROT 6.8 g/dl (6.4-8.2)
--- NOTE | 2020-01-05 17:02 | CON.ID ---
Consult Consult Specialty:: infectious diseases Reason for Consultation:: non healing leg wound with infection - History of Present Illness Chief Complaint: cellulitis of the leg and worsening of the wound History of Present Illness: 59 yo F DM, Obesity, who p/w right lower leg wound. Patient reports progressive, enlarging right reis wound, with redness and cellulitis of the leg . patient is non compliant and had the wound at the same site which had healed completely. 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) Musculoskeletal: Yes: Osteoarthritis (knees) Endocrine: Yes: Diabetes Mellitus - Alcohol/Substance Use Hx Alcohol Use: No History of Substance Use: reports: Marijuana (smokes daily) - Smoking History Smoking history: Never smoked Have you smoked in the past 12 months: No - Social History ADL: Independent Home Medications - Allergies Allergies/Adverse Reactions: Allergies Allergy/AdvReac Type Severity Reaction Status Date / Time adhesive tape AdvReac Intermediate Hives Verified 01/05/20 12:49 - Home Medications Home Medications: Ambulatory Orders Atorvastatin Ca 1 tab PO HS 04/10/16 Enalapril Maleate 5 mg PO DAILY 04/10/16 Multivitamin 1 tab PO DAILY 04/10/16 Gabapentin [Neurontin -] 300 mg PO TID 12/09/18 Insulin Lispro Protamin/Lispro [Humalog Mix 75-25 Kwikpen] 50 unit SQ BID 12/12 Magnesium Oxide [Magnesium] 400 mg PO ASDIR 12/12/18 Mv-Min/FA/Vit K/Lycop/Lut/Zeax [Ocuvite Eye Plus Multi Tablet] 1 each PO ASDIR 12/12/18 [place]-3S/Dha/Epa/Fish Oil/D3 [[place]-3 + D Softgel] 1 each PO DAILY 12/12/18 ASA - 81 mg PO DAILY 03/29/19 Ibuprofen 800 mg PO TID PRN 05/19/19 Liraglutide [Victoza -] 1.8 mg SQ DAILY@0700 05/19/19 Acetaminophen [Tylenol .Regular Strength -] 650 mg PO Q4H PRN tablet 05/22/19 Insulin Sliding Scale [Novolog Vial Sliding Scale -] 1 vial SQ BIDAC units 05/22/19 Review of Systems - Review of Systems Constitutional: reports: No Symptoms Eyes: reports: No Symptoms HENT: reports: No Symptoms Cardiovascular: reports: No Symptoms Respiratory: reports: No Symptoms Gastrointestinal: reports: No Symptoms Genitourinary: reports: No Symptoms Musculoskeletal: reports: Other Integumentary: reports: Change in Color, Erythema, Wound Neurological: reports: No Symptoms Endocrine: reports: No Symptoms Hematology/Lymphatic: reports: No Symptoms Psychiatric: reports: No Symptoms Physical Exam Vital Signs: Vital Signs Temperature 98.1 F 01/05/20 12:50 Pulse Rate 78 01/05/20 12:50 Respiratory Rate 20 01/05/20 12:50 Blood Pressure 137/98 01/05/20 12:50 O2 Sat by Pulse Oximetry (%) 98 01/05/20 12:50 Constitutional: Yes: Well Nourished, Calm Eyes: Yes: Conjunctiva Clear HENT: Yes: Atraumatic, Normocephalic Neck: Yes: Supple, Trachea Midline Cardiovascular: Yes: Regular Rate and Rhythm Respiratory: Yes: Regular, CTA Bilaterally Gastrointestinal: Yes: Normal Bowel Sounds, Soft Musculoskeletal: Yes: WNL Extremities: Yes: Other (non healing wound of the legs) Edema: RLE: Trace Integumentary: Yes: Erythema, Other (wound with slough) Wound/Incision: Yes: Dressing Removed, Other (slough) Neurological: Yes: Alert, Oriented Psychiatric: Yes: Alert Labs: CBC, BMP 01/05/20 15:03 01/05/20 14:45 Imaging - Results Chest X-ray: Report Reviewed X-ray: Report Reviewed, Image Reviewed Assessment/Plan Problem List - Problems (1) MRSA (methicillin resistant Staphylococcus aureus) infection Problems reviewed: Yes Code(s): A49.02 - METHICILLIN RESIS STAPH INFECTION, UNSP SITE (2) Diabetic leg 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 Problems reviewed: Yes Code(s): E10.622 - TYPE 1 DIABETES MELLITUS WITH OTHER SKIN ULCER; L97.909 - NON-PRS CHRONIC ULC UNSP PRT OF UNSP LOW LEG W UNSP SEVERITY (3) Non-healing wound of lower extremity Problems reviewed: Yes Code(s): S81.809A - UNSPECIFIED OPEN WOUND, UNSPECIFIED LOWER LEG, INIT ENCNTR Qualifiers: Encounter type: initial encounter Laterality: right Qualified Code(s): S81.801A - Unspecified open wound, right lower leg, initial encounter (4) Morbid obesity Problems reviewed: Yes Code(s): E66.01 - MORBID (SEVERE) OBESITY DUE TO EXCESS CALORIES plan this morbidly obese patient with multiple issues and repeated wound infection patient needs iv abx and debridement of the wound
[2020-01-05] MEDS ORDERED: IBUPROFEN 400 MG TABLET (FP) PO PRN (19:35)
[2020-01-05] MEDS ORDERED: PATIENT'S OWN MEDICATION (NON-FORMULARY) (Magnesium Oxide [Magnesium] 400 MG) PO SCH (19:45)
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
[2020-01-05] MEDS: GABAPENTIN 300 MG CAPSULE PO SCH (21:25)
[2020-01-06] MEDS: GABAPENTIN 300 MG CAPSULE PO SCH ×3 (06:14→21:07)
[2020-01-06] MEDS: metFORMIN HCL 500 MG TABLET (FP) PO SCH ×2 (06:14→16:28)
[2020-01-06] MEDS: ACETAMINOPHEN 325 MG TABLET (FP) PO PRN ×2 (06:14→21:07)
[2020-01-06] MEDS: FUROSEMIDE 40 MG TABLET (FP) PO SCH ×2 (06:14→13:58)
[2020-01-06] MEDS: INSULIN (NOVOLOG MIX 70/30) 100 UNITS/ML MDV SQ SCH ×2 (06:15→16:28)
[2020-01-06] MEDS: INSULIN SLIDING SCALE (NOVOLOG) 1 VIAL SQ SCH ×3 (06:16→16:31)
[2020-01-06] MEDS: LIRAGLUTIDE 0.6 MG/0.1 ML PEN.INJCTR SQ SCH (06:17)
[2020-01-06] MEDS ORDERED: PT OWN MED DRAWER 7, Y5N ONE ×2 (06:35→10:07)
[2020-01-06 09:33] LABS: BASO % 0.8 % (0-2.0); EOS % 3.8 % (0-4.5); HEMATOCRIT 43.7 % (32.4-45.2); HEMOGLOBIN 14.4 GM/dL (10.7-15.3); MCH 29.8 pg (25.7-33.7); MCHC 32.9 g/dl (32.0-36.0); MEAN CELL VOLUME 90.5 fl (80-96); MEAN PLT VOLUME 8.3 fl (7.5-11.1); MONO % 6.6 % (3.8-10.2); NEUT % 63.8 % (42.8-82.8); PLATELET COUNT 274 K/MM3 (134-434); RBC 4.82 M/mm3 (3.60-5.2); RDW 14.2 % (11.6-15.6); WHITE BLOOD COUNT 7.4 K/mm3 (4.0-10.0)
[2020-01-06] MEDS ORDERED: D3 PO SCH (10:00)
[2020-01-06] MEDS ORDERED: OMEGA PO SCH (10:00)
[2020-01-06] MEDS ORDERED: DHA PO SCH (10:00)
[2020-01-06] MEDS ORDERED: FISH OIL PO SCH (10:00)
[2020-01-06] MEDS ORDERED: [UNRECOGNIZED DRUG - OTHER] PO SCH (10:00)
[2020-01-06] MEDS ORDERED: EPA PO SCH (10:00)
[2020-01-06] MEDS ORDERED: cefTRIAXone SODIUM 1 GM VIAL ONE (10:07)
[2020-01-06] MEDS ORDERED: DEXTROSE 5%-WATER - 50 ML IVPB ONE (10:07)
[2020-01-06] MEDS: ENOXAPARIN NA (PORCINE) 40 MG/0.4 ML DISP.SYRIN SQ SCH (10:10)
[2020-01-06] MEDS: MAGNESIUM OXIDE 400 MG TABLET (FP) PO SCH (10:10)
[2020-01-06] MEDS: MULTIVITAMINS (DAILY MVI) TABLET (FP) PO SCH (10:10)
[2020-01-06] MEDS: OMEGA-3 ACID ETHYL ESTERS (FATTY-ACIDS) 1 GM CAPSULE (FP) PO SCH (10:10)
[2020-01-06] MEDS: CEFTRIAXONE 1 GM in DEXTROSE 5%-WATER - 50 ML IVPB SCH (10:10)
[2020-01-06 10:16] LABS: POTASSIUM 4.1 mmol/L (3.5-5.1)
[2020-01-06 10:44] LABS: ALBUMIN 3.2 g/dl (3.4-5.0); BILIRUBIN,TOTAL 0.4 mg/dL (0.2-1); BLOOD UREA NITROGEN 12.6 mg/dL (7-18); CALCIUM 8.5 mg/dL (8.5-10.1); CREATININE 0.6 mg/dL (0.55-1.3); TOT PROT 6.4 g/dl (6.4-8.2)
[2020-01-06 11:57] LABS: ERYTHROCYTE SEDIMENTATION RATE 13 mm/hr (0-30)
--- NOTE | 2020-01-06 12:20 | PN ---
Progress Note, Physician History of Present Illness: Awake/ Comfortable no complains feels well - Current Medication List Current Medications: Active Medications Acetaminophen (Tylenol -) 650 mg PO Q4H PRN PRN Reason: PAIN LEVEL 1-5 Last Admin: 01/06/20 06:14 Dose: 650 mg Documented by: Enoxaparin Sodium (Lovenox -) 40 mg SQ DAILY [facility] Last Admin: 01/06/20 10:10 Dose: 40 mg Documented by: Furosemide (Lasix -) 40 mg PO BIDLASIX [facility] Last Admin: 01/06/20 06:14 Dose: 40 mg Documented by: Gabapentin (Neurontin -) 300 mg PO TID [facility] Last Admin: 01/06/20 06:14 Dose: 300 mg Documented by: Ceftriaxone Sodium 1 gm/ (Dextrose) 50 mls @ 200 mls/hr IVPB DAILY [facility]; Protocol Last Admin: 01/06/20 10:10 Dose: 200 mls/hr Documented by: Vancomycin HCl 1,500 mg/ (Dextrose) 500 mls @ 250 mls/hr IVPB Q24H [facility]; Protocol Insulin Aspart (Novolog Mix 70/30 Vial) 50 units SQ BIDAC [facility] Last Admin: 01/06/20 06:15 Dose: Not Given Documented by: Insulin Aspart (Novolog Vial Sliding Scale -) 1 vial SQ TIDAC [facility]; Protocol Last Admin: 01/06/20 11:46 Dose: Not Given Documented by: Liraglutide (Victoza -) 1.8 mg SQ DAILY@0700 [facility] Last Admin: 01/06/20 06:17 Dose: 1.8 mg Documented by: Magnesium Oxide (Mag-Ox -) 400 mg PO DAILY [facility] Last Admin: 01/06/20 10:10 Dose: 400 mg Documented by: Metformin HCl (Glucophage -) 500 mg PO BIDI [facility] Last Admin: 01/06/20 06:14 Dose: 500 mg Documented by: Multivitamins/Minerals/Vitamin C (Tab-A-Vit -) 1 tab PO DAILY [facility] Last Admin: 01/06/20 10:10 Dose: 1 tab Documented by: [id number] Ethyl Esters (Lovaza -) 1 gm PO DAILY [facility] Last Admin: 01/06/20 10:10 Dose: Not Given Documented by: - Objective Vital Signs: Vital Signs Temperature 98.0 F 01/06/20 09:10 Pulse Rate 77 01/06/20 09:10 Respiratory Rate 20 01/06/20 09:10 Blood Pressure 147/90 01/06/20 09:10 O2 Sat by Pulse Oximetry (%) 95 01/06/20 09:10 Constitutional: Yes: No Distress, Calm, Obese Eyes: Yes: Conjunctiva Clear Neck: Yes: Supple Cardiovascular: Yes: Regular Rate and Rhythm Respiratory: Yes: CTA Bilaterally Gastrointestinal: Yes: Soft Extremities: Yes: Other (dressing +) Edema: No Neurological: Yes: Alert Labs: CBC, BMP 01/06/20 08:40 01/06/20 08:40 INR, PTT INR 1.00 (0.83-1.09) 01/05/20 14:45 Problem List - Problems (1) Diabetic leg 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 Code(s): E10.622 - TYPE 1 DIABETES MELLITUS WITH OTHER SKIN ULCER; L97.909 - NON-PRS CHRONIC ULC UNSP PRT OF UNSP LOW LEG W UNSP SEVERITY (2) Insulin dependent diabetes mellitus Code(s): E11.9 - TYPE 2 DIABETES MELLITUS WITHOUT COMPLICATIONS; Z79.4 - VIDEO CONFERENCE SPECIALIST (CURRENT) USE OF INSULIN (3) MRSA (methicillin resistant Staphylococcus aureus) infection Code(s): A49.02 - METHICILLIN RESIS STAPH INFECTION, UNSP SITE (4) Morbid obesity Code(s): E66.01 - MORBID (SEVERE) OBESITY DUE TO EXCESS CALORIES (5) Non-healing wound of lower extremity Code(s): S81.809A - UNSPECIFIED OPEN WOUND, UNSPECIFIED LOWER LEG, INIT ENCNTR Assessment/Plan Stable Abx local care Monitor bgm dvt prophylaxis will continue to follow
--- NOTE | 2020-01-06 15:58 | PN ---
Progress Note, Physician History of Present Illness: Pt alert, without distress. c/o RLE itching but no pain. No other specific complaints. - Current Medication List Current Medications: Active Medications Acetaminophen (Tylenol -) 650 mg PO Q4H PRN PRN Reason: PAIN LEVEL 1-5 Last Admin: 01/06/20 06:14 Dose: 650 mg Documented by: Enoxaparin Sodium (Lovenox -) 40 mg SQ DAILY [facility] Last Admin: 01/06/20 10:10 Dose: 40 mg Documented by: Furosemide (Lasix -) 40 mg PO BIDLASIX [facility] Last Admin: 01/06/20 13:58 Dose: Not Given Documented by: Gabapentin (Neurontin -) 300 mg PO TID [facility] Last Admin: 01/06/20 13:58 Dose: 300 mg Documented by: Ceftriaxone Sodium 1 gm/ (Dextrose) 50 mls @ 200 mls/hr IVPB DAILY [facility]; Protocol Last Admin: 01/06/20 10:10 Dose: 200 mls/hr Documented by: Vancomycin HCl 1,500 mg/ (Dextrose) 500 mls @ 250 mls/hr IVPB Q24H [facility]; Protocol Insulin Aspart (Novolog Mix 70/30 Vial) 50 units SQ BIDAC [facility] Last Admin: 01/06/20 06:15 Dose: Not Given Documented by: Insulin Aspart (Novolog Vial Sliding Scale -) 1 vial SQ TIDAC [facility]; Protocol Last Admin: 01/06/20 11:46 Dose: Not Given Documented by: Liraglutide (Victoza -) 1.8 mg SQ DAILY@0700 [facility] Last Admin: 01/06/20 06:17 Dose: 1.8 mg Documented by: Magnesium Oxide (Mag-Ox -) 400 mg PO DAILY [facility] Last Admin: 01/06/20 10:10 Dose: 400 mg Documented by: Metformin HCl (Glucophage -) 500 mg PO BIDI [facility] Last Admin: 01/06/20 06:14 Dose: 500 mg Documented by: Multivitamins/Minerals/Vitamin C (Tab-A-Vit -) 1 tab PO DAILY [facility] Last Admin: 01/06/20 10:10 Dose: 1 tab Documented by: [id number] Ethyl Esters (Lovaza -) 1 gm PO DAILY [facility] Last Admin: 01/06/20 10:10 Dose: Not Given Documented by: - Objective Vital Signs: Vital Signs Temperature 98.0 F 01/06/20 09:10 Pulse Rate 77 01/06/20 09:10 Respiratory Rate 20 01/06/20 09:10 Blood Pressure 147/90 01/06/20 09:10 O2 Sat by Pulse Oximetry (%) 95 01/06/20 09:10 Constitutional: Yes: No Distress, Calm Eyes: Yes: Conjunctiva Clear Cardiovascular: Yes: Regular Rate and Rhythm Respiratory: Yes: Regular Gastrointestinal: Yes: Normal Bowel Sounds, Soft, Abdomen, Obese Genitourinary: Yes: WNL Wound/Incision: Yes: Other (RLE erythema, +reis wound with eschar) Neurological: Yes: Alert, Oriented Psychiatric: Yes: Alert Labs: CBC, BMP 01/06/20 08:40 01/06/20 08:40 INR, PTT INR 1.00 (0.83-1.09) 01/05/20 14:45 Laboratory Last Values WBC 7.4 K/mm3 (4.0-10.0) 01/06/20 08:40 RBC 4.82 M/mm3 (3.60-5.2) 01/06/20 08:40 Hgb 14.4 GM/dL (10.7-15.3) 01/06/20 08:40 Hct 43.7 % (32.4-45.2) 01/06/20 08:40 MCV 90.5 fl (80-96) 01/06/20 08:40 MCH 29.8 pg (25.7-33.7) 01/06/20 08:40 MCHC 32.9 g/dl (32.0-36.0) 01/06/20 08:40 RDW 14.2 % (11.6-15.6) 01/06/20 08:40 Plt Count 274 K/MM3 (134-434) 01/06/20 08:40 MPV 8.3 fl (7.5-11.1) 01/06/20 08:40 Absolute Neuts (auto) 4.7 K/mm3 (1.5-8.0) 01/06/20 08:40 Neutrophils % 63.8 % (42.8-82.8) 01/06/20 08:40 Lymphocytes % 25.0 % (8-40) 01/06/20 08:40 Monocytes % 6.6 % (3.8-10.2) 01/06/20 08:40 Eosinophils % 3.8 % (0-4.5) 01/06/20 08:40 Basophils % 0.8 % (0-2.0) 01/06/20 08:40 Nucleated RBC % 0 % (0-0) 01/06/20 08:40 ESR 13 mm/hr (0-30) 01/06/20 08:40 PT with INR 11.80 SEC (9.7-13.0) 01/05/20 14:45 INR 1.00 (0.83-1.09) 01/05/20 14:45 PTT (Actin FS) 31.6 SECONDS (25.2-36.5) 01/05/20 14:45 Sodium 140 mmol/L (136-145) 01/06/20 08:40 Potassium 4.1 mmol/L (3.5-5.1) 01/06/20 08:40 Chloride 107 mmol/L (98-107) 01/06/20 08:40 Carbon Dioxide 26 mmol/L (21-32) 01/06/20 08:40 Anion Gap 7 MMOL/L (8-16) L 01/06/20 08:40 BUN 12.6 mg/dL (7-18) 01/06/20 08:40 Creatinine 0.6 mg/dL (0.55-1.3) 01/06/20 08:40 Est GFR (CKD-EPI)AfAm 116.45 01/06/20 08:40 Est GFR (CKD-EPI)NonAf 100.47 01/06/20 08:40 POC Glucometer 114 UNITS (80-120) 01/06/20 11:44 Random Glucose 144 mg/dL (74-106) H 01/06/20 08:40 Hemoglobin A1c % 6.7 % (4.2-6.3) H 01/06/20 08:40 Calcium 8.5 mg/dL (8.5-10.1) 01/06/20 08:40 Total Bilirubin 0.4 mg/dL (0.2-1) 01/06/20 08:40 AST 13 U/L (15-37) L 01/06/20 08:40 ALT 26 U/L (13-61) 01/06/20 08:40 Alkaline Phosphatase 71 U/L (45-117) 01/06/20 08:40 C-Reactive Protein 1.4 MG/DL (0.00-0.3) H 01/05/20 14:45 Total Protein 6.4 g/dl (6.4-8.2) 01/06/20 08:40 Albumin 3.2 g/dl (3.4-5.0) L 01/06/20 08:40 TSH 0.92 uIU/ml (0.358-3.74) 01/06/20 08:40 COVID-19 (JAMES) Not detected (Not Detected) 01/05/20 14:45 Blood Type O POSITIVE 01/05/20 14:45 Antibody Screen Negative 01/05/20 14:45 Microbiology 01/05/20 14:15 Blood - Peripheral Venous Blood Culture - Preliminary NO GROWTH OBTAINED AFTER 24 HOURS, INCUBATION TO CONTINUE FOR 4 DAYS. 01/05/20 14:45 Blood - Peripheral Venous Blood Culture - Preliminary NO GROWTH OBTAINED AFTER 24 HOURS, INCUBATION TO CONTINUE FOR 4 DAYS. - ....Imaging X-ray: Report Reviewed Problem List - Problems (1) Diabetic leg 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 Code(s): E10.622 - TYPE 1 DIABETES MELLITUS WITH OTHER SKIN ULCER; L97.909 - NON-PRS CHRONIC ULC UNSP PRT OF UNSP LOW LEG W UNSP SEVERITY (2) Insulin dependent diabetes mellitus Code(s): E11.9 - TYPE 2 DIABETES MELLITUS WITHOUT COMPLICATIONS; Z79.4 - RETIREMENT (CURRENT) USE OF INSULIN (3) MRSA (methicillin resistant Staphylococcus aureus) infection Code(s): A49.02 - METHICILLIN RESIS STAPH INFECTION, UNSP SITE (4) Morbid obesity Code(s): E66.01 - MORBID (SEVERE) OBESITY DUE TO EXCESS CALORIES (5) Non-healing wound of lower extremity Code(s): S81.809A - UNSPECIFIED OPEN WOUND, UNSPECIFIED LOWER LEG, INIT ENCNTR (6) Venous stasis ulcer Code(s): I83.009 - VARICOSE VEINS OF UNSP LOWER EXTREMITY W ULCER OF UNSP SITE; L97.909 - NON-PRS CHRONIC ULC UNSP PRT OF UNSP LOW LEG W UNSP SEVERITY Assessment/Plan LE cellulitis/chronic wound infection Morbid obesity IDDM Venous stasis -- history of MRSA wound infection -- continue Ceftriaxone/Vancomycin for now -- check Vancomycin trough prior to 4th dose, monitor renal function -- debridement, leg elevation, wound care
[2020-01-06] MEDS: VANCOMYCIN HCL 1,500 MG in DEXTROSE 5%-WATER - 500 ML IVPB SCH (17:56)
[2020-01-07] MEDS: metFORMIN HCL 500 MG TABLET (FP) PO SCH ×2 (06:27→16:17)
[2020-01-07] MEDS: FUROSEMIDE 40 MG TABLET (FP) PO SCH ×2 (06:27→13:28)
[2020-01-07] MEDS: GABAPENTIN 300 MG CAPSULE PO SCH ×3 (06:27→21:42)
[2020-01-07] MEDS: INSULIN SLIDING SCALE (NOVOLOG) 1 VIAL SQ SCH ×3 (06:28→16:18)
[2020-01-07] MEDS: INSULIN (NOVOLOG MIX 70/30) 100 UNITS/ML MDV SQ SCH ×2 (06:29→16:18)
[2020-01-07] MEDS: LIRAGLUTIDE 0.6 MG/0.1 ML PEN.INJCTR SQ SCH (06:33)
[2020-01-07] MEDS ORDERED: PT OWN MED DRAWER 7, Y5N ONE ×2 (09:47→15:56)
[2020-01-07] MEDS ORDERED: cefTRIAXone SODIUM 1 GM VIAL ONE (10:04)
[2020-01-07] MEDS ORDERED: DEXTROSE 5%-WATER - 50 ML IVPB ONE (10:04)
[2020-01-07] MEDS: OMEGA-3 ACID ETHYL ESTERS (FATTY-ACIDS) 1 GM CAPSULE (FP) PO SCH (10:29)
[2020-01-07] MEDS: ENOXAPARIN NA (PORCINE) 40 MG/0.4 ML DISP.SYRIN SQ SCH (10:29)
[2020-01-07] MEDS: MULTIVITAMINS (DAILY MVI) TABLET (FP) PO SCH (10:29)
[2020-01-07] MEDS: MAGNESIUM OXIDE 400 MG TABLET (FP) PO SCH (10:29)
[2020-01-07] MEDS: CEFTRIAXONE 1 GM in DEXTROSE 5%-WATER - 50 ML IVPB SCH (10:29)
--- NOTE | 2020-01-07 12:00 | PN ---
Progress Note, Physician History of Present Illness: Awake/ Comfortable no complains feels well Eating lunch I/D f/u noted Afebrile - Current Medication List Current Medications: Active Medications Acetaminophen (Tylenol -) 650 mg PO Q4H PRN PRN Reason: PAIN LEVEL 1-5 Last Admin: 01/06/20 21:07 Dose: 650 mg Documented by: Enoxaparin Sodium (Lovenox -) 40 mg SQ DAILY [facility] Last Admin: 01/07/20 10:29 Dose: 40 mg Documented by: Furosemide (Lasix -) 40 mg PO BIDLASIX [facility] Last Admin: 01/07/20 06:27 Dose: 40 mg Documented by: Gabapentin (Neurontin -) 300 mg PO TID [facility] Last Admin: 01/07/20 06:27 Dose: 300 mg Documented by: Ceftriaxone Sodium 1 gm/ (Dextrose) 50 mls @ 200 mls/hr IVPB DAILY [facility]; Protocol Last Admin: 01/07/20 10:29 Dose: 200 mls/hr Documented by: Vancomycin HCl 1,500 mg/ (Dextrose) 500 mls @ 250 mls/hr IVPB Q24H [facility]; Protocol Last Admin: 01/06/20 17:56 Dose: 250 mls/hr Documented by: Insulin Aspart (Novolog Mix 70/30 Vial) 50 units SQ BIDAC [facility] Last Admin: 01/07/20 06:29 Dose: 50 units Documented by: Insulin Aspart (Novolog Vial Sliding Scale -) 1 vial SQ TIDAC [facility]; Protocol Last Admin: 01/07/20 11:32 Dose: Not Given Documented by: Liraglutide (Victoza -) 1.8 mg SQ DAILY@0700 [facility] Last Admin: 01/07/20 06:33 Dose: 1.8 mg Documented by: Magnesium Oxide (Mag-Ox -) 400 mg PO DAILY [facility] Last Admin: 01/07/20 10:29 Dose: 400 mg Documented by: Metformin HCl (Glucophage -) 500 mg PO BIDI [facility] Last Admin: 01/07/20 06:27 Dose: 500 mg Documented by: Multivitamins/Minerals/Vitamin C (Tab-A-Vit -) 1 tab PO DAILY [facility] Last Admin: 01/07/20 10:29 Dose: 1 tab Documented by: [id number] Ethyl Esters (Lovaza -) 1 gm PO DAILY [facility] Last Admin: 01/07/20 10:29 Dose: 1 gm Documented by: - Objective Vital Signs: Vital Signs Temperature 97.8 F 01/07/20 10:16 Pulse Rate 77 01/07/20 10:16 Respiratory Rate 22 H 01/07/20 10:16 Blood Pressure 152/84 01/07/20 10:16 O2 Sat by Pulse Oximetry (%) 98 01/07/20 10:16 Constitutional: Yes: No Distress, Calm, Obese Neck: Yes: Supple Cardiovascular: Yes: Regular Rate and Rhythm Respiratory: Yes: CTA Bilaterally Gastrointestinal: Yes: Soft, Abdomen, Obese Wound/Incision: Yes: Dressing Dry and Intact Neurological: Yes: Alert Labs: CBC, BMP 01/06/20 08:40 01/06/20 08:40 INR, PTT INR 1.00 (0.83-1.09) 01/05/20 14:45 Problem List - Problems (1) Diabetic leg 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 Code(s): E10.622 - TYPE 1 DIABETES MELLITUS WITH OTHER SKIN ULCER; L97.909 - NON-PRS CHRONIC ULC UNSP PRT OF UNSP LOW LEG W UNSP SEVERITY (2) Insulin dependent diabetes mellitus Code(s): E11.9 - TYPE 2 DIABETES MELLITUS WITHOUT COMPLICATIONS; 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
[2020-01-07] MEDS: VANCOMYCIN HCL 1,500 MG in DEXTROSE 5%-WATER - 500 ML IVPB SCH (16:18)
--- NOTE | 2020-01-07 19:50 | PN ---
Progress Note, Physician History of Present Illness: Pt afebrile, without distress. No new complaints. - Current Medication List Current Medications: Active Medications Acetaminophen (Tylenol -) 650 mg PO Q4H PRN PRN Reason: PAIN LEVEL 1-5 Last Admin: 01/06/20 21:07 Dose: 650 mg Documented by: Enoxaparin Sodium (Lovenox -) 40 mg SQ DAILY [facility] Last Admin: 01/07/20 10:29 Dose: 40 mg Documented by: Furosemide (Lasix -) 40 mg PO BIDLASIX [facility] Last Admin: 01/07/20 13:28 Dose: Not Given Documented by: Gabapentin (Neurontin -) 300 mg PO TID [facility] Last Admin: 01/07/20 13:28 Dose: 300 mg Documented by: Ceftriaxone Sodium 1 gm/ (Dextrose) 50 mls @ 200 mls/hr IVPB DAILY [facility]; Protocol Last Admin: 01/07/20 10:29 Dose: 200 mls/hr Documented by: Vancomycin HCl 1,500 mg/ (Dextrose) 500 mls @ 250 mls/hr IVPB Q24H [facility]; Protocol Last Admin: 01/07/20 16:18 Dose: 250 mls/hr Documented by: Insulin Aspart (Novolog Mix 70/30 Vial) 50 units SQ BIDAC [facility] Last Admin: 01/07/20 16:18 Dose: Not Given Documented by: Insulin Aspart (Novolog Vial Sliding Scale -) 1 vial SQ TIDAC [facility]; Protocol Last Admin: 01/07/20 16:18 Dose: Not Given Documented by: Liraglutide (Victoza -) 1.8 mg SQ DAILY@0700 [facility] Last Admin: 01/07/20 06:33 Dose: 1.8 mg Documented by: Magnesium Oxide (Mag-Ox -) 400 mg PO DAILY [facility] Last Admin: 01/07/20 10:29 Dose: 400 mg Documented by: Metformin HCl (Glucophage -) 500 mg PO BIDI [facility] Last Admin: 01/07/20 16:17 Dose: 500 mg Documented by: Multivitamins/Minerals/Vitamin C (Tab-A-Vit -) 1 tab PO DAILY [facility] Last Admin: 01/07/20 10:29 Dose: 1 tab Documented by: [id number] Ethyl Esters (Lovaza -) 1 gm PO DAILY [facility] Last Admin: 01/07/20 10:29 Dose: 1 gm Documented by: - Objective Vital Signs: Vital Signs Temperature 98.5 F 01/07/20 14:12 Pulse Rate 70 01/07/20 14:12 Respiratory Rate 20 01/07/20 14:12 Blood Pressure 122/55 L 01/07/20 14:12 O2 Sat by Pulse Oximetry (%) 96 01/07/20 14:12 Constitutional: Yes: No Distress, Calm Cardiovascular: Yes: Regular Rate and Rhythm Respiratory: Yes: Regular Gastrointestinal: Yes: Normal Bowel Sounds, Soft, Abdomen, Obese Genitourinary: Yes: WNL Integumentary: Yes: WNL Wound/Incision: Yes: Other (RLE +erythema/mild warmth, +reis wound with eschar/n o drainage noted) Neurological: Yes: Alert, Oriented Labs: CBC, BMP 01/06/20 08:40 01/06/20 08:40 INR, PTT INR 1.00 (0.83-1.09) 01/05/20 14:45 Problem List - Problems (1) Diabetic leg 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 Code(s): E10.622 - TYPE 1 DIABETES MELLITUS WITH OTHER SKIN ULCER; L97.909 - NON-PRS CHRONIC ULC UNSP PRT OF UNSP LOW LEG W UNSP SEVERITY (2) Insulin dependent diabetes mellitus Code(s): E11.9 - TYPE 2 DIABETES MELLITUS WITHOUT COMPLICATIONS; Z79.4 - HALFWAY (CURRENT) USE OF INSULIN (3) MRSA (methicillin resistant Staphylococcus aureus) infection Code(s): A49.02 - METHICILLIN RESIS STAPH INFECTION, UNSP SITE (4) Morbid obesity Code(s): E66.01 - MORBID (SEVERE) OBESITY DUE TO EXCESS CALORIES (5) Non-healing wound of lower extremity Code(s): S81.809A - UNSPECIFIED OPEN WOUND, UNSPECIFIED LOWER LEG, INIT ENCNTR (6) Venous stasis ulcer Code(s): I83.009 - VARICOSE VEINS OF UNSP LOWER EXTREMITY W ULCER OF UNSP SITE; L97.909 - NON-PRS CHRONIC ULC UNSP PRT OF UNSP LOW LEG W UNSP SEVERITY Assessment/Plan LE cellulitis/chronic wound infection Morbid obesity IDDM Venous stasis -- history of MRSA wound infection -- continue Ceftriaxone/Vancomycin for now -- vancomycin trough prior to a.m. dose, monitor renal function -- debridement, leg elevation, wound care
[2020-01-08] MEDS: ACETAMINOPHEN 325 MG TABLET (FP) PO PRN (05:13)
[2020-01-08] MEDS: INSULIN SLIDING SCALE (NOVOLOG) 1 VIAL SQ SCH ×3 (06:24→16:57)
[2020-01-08] MEDS: GABAPENTIN 300 MG CAPSULE PO SCH ×3 (06:25→21:16)
[2020-01-08] MEDS: FUROSEMIDE 40 MG TABLET (FP) PO SCH ×2 (06:25→13:18)
[2020-01-08] MEDS: metFORMIN HCL 500 MG TABLET (FP) PO SCH ×2 (06:26→17:19)
[2020-01-08] MEDS: INSULIN (NOVOLOG MIX 70/30) 100 UNITS/ML MDV SQ SCH ×2 (06:28→17:19)
[2020-01-08] MEDS ORDERED: PT OWN MED DRAWER 7, Y5N ONE ×5 (06:29→18:56)
[2020-01-08] MEDS: LIRAGLUTIDE 0.6 MG/0.1 ML PEN.INJCTR SQ SCH (06:32)
--- NOTE | 2020-01-08 08:42 | SPA.PREOP ---
- PRE-OP NOTE Dx: Chronic RLE wound, MRSA Planned Procedure: Debridement and VAC application Surgeon: Toney Becerril Last Vital Signs Temp Pulse Resp BP Pulse Ox 98.4 F 67 20 138/74 96 01/08/20 05:56 01/08/20 05:56 01/08/20 05:56 01/08/20 05:56 01/08/20 05:56 CBC, BMP 01/06/20 08:40 01/06/20 08:40 INR, PTT INR 1.00 (0.83-1.09) 01/05/20 14:45 Laboratory Tests 01/05/20 14:45 COVID-19 (JAMES) Not detected - ASSESSMENT/PLAN 1. NPO except po meds 2. GI/DVT PPX 3. Medical optimization / clearance 4. Going to OR at 1500 hrs today 5. Consent to be obtained by surgeon after risks, benefits and alternatives discussed with patient and or Health Care Proxy. 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 - New patient This patient is new to me today: Yes Date on this admission: 01/08/20
[2020-01-08] MEDS ORDERED: cefTRIAXone SODIUM 1 GM VIAL ONE (09:55)
[2020-01-08] MEDS ORDERED: DEXTROSE 5%-WATER - 50 ML IVPB ONE (09:55)
[2020-01-08] MEDS: MAGNESIUM OXIDE 400 MG TABLET (FP) PO SCH (09:58)
[2020-01-08] MEDS: MULTIVITAMINS (DAILY MVI) TABLET (FP) PO SCH (09:58)
[2020-01-08] MEDS: OMEGA-3 ACID ETHYL ESTERS (FATTY-ACIDS) 1 GM CAPSULE (FP) PO SCH (09:59)
[2020-01-08] MEDS: ENOXAPARIN NA (PORCINE) 40 MG/0.4 ML DISP.SYRIN SQ SCH (09:59)
[2020-01-08] MEDS: CEFTRIAXONE 1 GM in DEXTROSE 5%-WATER - 50 ML IVPB SCH (10:00)
--- NOTE | 2020-01-08 10:19 | EKG ---
Test Reason : Blood Pressure : / mmHG Vent. Rate : 071 BPM Atrial Rate : 071 BPM P-R Int : 200 ms QRS Dur : 098 ms QT Int : 402 ms P-R-T Axes : 043 013 009 degrees QTc Int : 436 ms POOR DATA QUALITY, INTERPRETATION MAY BE ADVERSELY AFFECTED UNDETERMINED RHYTHM , likely NSR Low precordial voltages ABNORMAL ECG WHEN COMPARED WITH ECG OF 19-MAY-2019 11:27, NO significant changes Confirmed by Tevin Renner ([id number]) on 01/08/2020 10:19:33 AM Referred By: Confirmed By:Tevin Renner
--- NOTE | 2020-01-08 11:01 | PN ---
Progress Note, Physician History of Present Illness: stable no new issues - Current Medication List Current Medications: Active Medications Acetaminophen (Tylenol -) 650 mg PO Q4H PRN PRN Reason: PAIN LEVEL 1-5 Last Admin: 01/08/20 05:13 Dose: 650 mg Documented by: Enoxaparin Sodium (Lovenox -) 40 mg SQ DAILY [facility] Last Admin: 01/08/20 09:59 Dose: Not Given Documented by: Furosemide (Lasix -) 40 mg PO BIDLASIX [facility] Last Admin: 01/08/20 06:25 Dose: Not Given Documented by: Gabapentin (Neurontin -) 300 mg PO TID [facility] Last Admin: 01/08/20 06:25 Dose: 300 mg Documented by: Ceftriaxone Sodium 1 gm/ (Dextrose) 50 mls @ 200 mls/hr IVPB DAILY [facility]; Protocol Last Admin: 01/08/20 10:00 Dose: 200 mls/hr Documented by: Vancomycin HCl 1,500 mg/ (Dextrose) 500 mls @ 250 mls/hr IVPB Q24H [facility]; Protocol Last Admin: 01/07/20 16:18 Dose: 250 mls/hr Documented by: Insulin Aspart (Novolog Mix 70/30 Vial) 50 units SQ BIDAC [facility] Last Admin: 01/08/20 06:28 Dose: Not Given Documented by: Insulin Aspart (Novolog Vial Sliding Scale -) 1 vial SQ TIDAC [facility]; Protocol Last Admin: 01/08/20 06:24 Dose: Not Given Documented by: Liraglutide (Victoza -) 1.8 mg SQ DAILY@0700 [facility] Last Admin: 01/08/20 06:32 Dose: 1.8 mg Documented by: Magnesium Oxide (Mag-Ox -) 400 mg PO DAILY [facility] Last Admin: 01/08/20 09:58 Dose: 400 mg Documented by: Metformin HCl (Glucophage -) 500 mg PO BIDI [facility] Last Admin: 01/08/20 06:26 Dose: 500 mg Documented by: Multivitamins/Minerals/Vitamin C (Tab-A-Vit -) 1 tab PO DAILY [facility] Last Admin: 01/08/20 09:58 Dose: 1 tab Documented by: [id number] Ethyl Esters (Lovaza -) 1 gm PO DAILY [facility] Last Admin: 01/08/20 09:59 Dose: 1 gm Documented by: - Objective Vital Signs: Vital Signs Temperature 98.4 F 08/03/20 10:00 Pulse Rate 69 01/08/20 10:00 Respiratory Rate 20 01/08/20 10:00 Blood Pressure 154/73 01/08/20 10:00 O2 Sat by Pulse Oximetry (%) 98 01/08/20 10:00 Constitutional: Yes: No Distress, Calm, Obese Cardiovascular: Yes: S1, S2 Respiratory: Yes: Regular, CTA Bilaterally Gastrointestinal: Yes: Normal Bowel Sounds, Soft Musculoskeletal: Yes: WNL Extremities: Yes: Other Wound/Incision: Yes: Dressing Dry and Intact Neurological: Yes: Alert, Oriented Psychiatric: Yes: Alert, Oriented Labs: CBC, BMP 01/06/20 08:40 01/06/20 08:40 INR, PTT INR 1.00 (0.83-1.09) 01/05/20 14:45 Assessment/Plan Problem List - Problems (1) MRSA (methicillin resistant Staphylococcus aureus) infection Problems reviewed: Yes Code(s): A49.02 - METHICILLIN RESIS STAPH INFECTION, UNSP SITE (2) Diabetic leg 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 Problems reviewed: Yes Code(s): E10.622 - TYPE 1 DIABETES MELLITUS WITH OTHER SKIN ULCER; L97.909 - NON-PRS CHRONIC ULC UNSP PRT OF UNSP LOW LEG W UNSP SEVERITY (3) Non-healing wound of lower extremity Problems reviewed: Yes Code(s): S81.809A - UNSPECIFIED OPEN WOUND, UNSPECIFIED LOWER LEG, INIT ENCNTR Qualifiers: Encounter type: initial encounter Laterality: right Qualified Code(s): S81.801A - Unspecified open wound, right lower leg, initial encounter (4) Morbid obesity Problems reviewed: Yes Code(s): E66.01 - MORBID (SEVERE) OBESITY DUE TO EXCESS CALORIES plan plan for debridement continue abx rest as per the team
[2020-01-08] MEDS ORDERED: MIDAZOLAM HCL 2 MG/2 ML SINGLE DOSE VIAL ONE ×4 (14:55→15:14)
[2020-01-08] MEDS ORDERED: PROPOFOL 20 ML ONE (15:11)
[2020-01-08] MEDS ORDERED: LIDOCAINE HCL 1%, 10 MG/ML (20ML VIAL) ONE (15:14)
[2020-01-08] MEDS ORDERED: LIDOCAINE HCL 2% (50ML VIAL) SQ ONE (15:15)
[2020-01-08] MEDS ORDERED: LIDOCAINE HCL 1%, 10 MG/ML (20ML VIAL) NR ONE (15:15)
--- NOTE | 2020-01-08 15:27 | OP ---
Operative Note - Note: Operative Date: 01/08/20 Pre-Operative Diagnosis: right reis ulcer Operation: Excisional debridement skin, subcutaneous tissue with placement of vac Post-Operative Diagnosis: Same as Pre-op Surgeon: Toney Becerril Automatic Mounter: Geovanni Denise Anesthesia: MAC Estimated Blood Loss (mls): 30 Instrument used (Debridements only): curette Operative Report Dictated: Yes
[2020-01-08] MEDS ORDERED: PROMETHAZINE HCL 25 MG/1 ML VIAL IVPUSH PRN (15:42)
[2020-01-08] MEDS ORDERED: ONDANSETRON 4 MG/2 ML VIAL IVPUSH PRN (15:42)
--- NOTE | 2020-01-08 16:11 | SURG ---
Surgery Maintenance Service Technician Note Maintenance Service Technician: Geovanni Denise PA-C (Suzy) Date of Service: 01/08/20 Diagnosis: right reis ulcer Procedure: Operation: Excisional debridement skin, subcutaneous tissue with placement of vac I was present for the entirety of the operative procedure. For further detail, please refer to operative report. Visit type - Case Type Case Type: ED Admission - Emergency Emergency Visit: Yes ED Registration Date: 01/05/20 Care time: The patient presented to the Emergency Department on the above date and was hospitalized for further evaluation of their emergent condition. - New patient This patient is new to me today: Yes Date on this admission: 01/08/20 - Critical Care Critical Care patient: No
[2020-01-08] MEDS: VANCOMYCIN HCL 1,500 MG in DEXTROSE 5%-WATER - 500 ML IVPB SCH (17:59)
--- NOTE | 2020-01-08 18:56 | OP ---
DATE OF OPERATION: 01/08/2020 PREOPERATIVE DIAGNOSIS: Right reis ulcer. POSTOPERATIVE DIAGNOSIS: Right reis ulcer. OPERATIVE PROCEDURE: Excisional debridement skin, subcutaneous tissue right reis, replacement of VAC dressing. SURGEON: Toney Hager MD. HOSPICE ENTRANCE ATTENDANT: DONALD Byrd. ANESTHESIA: Fractional. BLOOD LOSS: 30 mL. INDICATION: The patient is a 59-year-old female that has a right reis ulcer that is infected. She is admitted for IV antibiotics and a debridement. Patient was consented for the procedure understanding all risks, benefits, and alternatives and taken to the operating room. DESCRIPTION OF PROCEDURE: Once in the operating room, she was laid on the operating table in a supine manner, and the area of the right thin was prepped and draped in sterile surgical manner. We then went ahead and injected 30 mL lidocaine 1% in the area incrementally. We then went ahead and used a curet and excised all the skin and subcutaneous tissue getting all the way down to almost fascia. The debrided tissue was sent off to pathology. Bovie cautery was controlled with hemostasis. The wound was then well irrigated. When we got down to a nice clean base, we then were able to cut our VAC dressing foam to size, and the VAC dressing as placed. We started the VAC on 125 mm an hour. Patient tolerated procedure with no complications. Total blood loss 30 mL. Patient transferred to PACU in stable condition. TONEY HAGER DO NP/[id number]
[2020-01-08] MEDS: oxyCODONE HCL 5 MG TABLET PO PRN (21:16)
--- NOTE | 2020-01-08 22:42 | PN ---
Progress Note (short form) - Note Progress Note: Pt examined earlier today Events noted for right leg wound debridement sugars are controlled pt denies pain Vital Signs - 24 hr 01/08/20 01/08/20 01/08/20 02:00 05:56 09:00 Temperature 97.9 F 98.4 F Pulse Rate 67 67 Respiratory 20 20 Rate Blood Pressure 152/77 138/74 O2 Sat by Pulse 96 96 98 Oximetry (%) 01/08/20 01/08/20 01/08/20 10:00 14:36 15:37 Temperature 98.4 F 98.6 F 98.0 F Pulse Rate 69 66 73 Respiratory 20 20 12 Rate Blood Pressure 154/73 150/73 137/76 O2 Sat by Pulse 98 99 Oximetry (%) Current Medications Generic Name Dose Route Start Last Admin Trade Name Freq PRN Reason Stop Dose Admin Acetaminophen 650 mg 01/08/20 16:14 Tylenol - PO Q4H PRN PAIN LEVEL 1-5 Enoxaparin Sodium 40 mg 01/09/20 10:00 Lovenox - SQ DAILY [facility] Fentanyl 50 mcg 01/08/20 15:42 01/08/20 16:08 Sublimaze Injection - IVPUSH 50 mcg [id number] PRN Administration PAIN-PACU ORDER X 4 DOSES ONLY Furosemide 40 mg 01/09/20 06:00 Lasix - PO BIDLASIX [facility] Gabapentin 300 mg 01/08/20 22:00 01/08/20 21:16 Neurontin - PO 300 mg TID [facility] Administration Ceftriaxone Sodium 1 gm/ 50 mls @ 100 mls/hr 01/09/20 10:00 Dextrose IVPB DAILY [facility] Protocol Vancomycin HCl 1,500 mg/ 500 mls @ 250 mls/hr 01/08/20 17:00 01/08/20 17:59 Dextrose IVPB 250 mls/hr DAILY@1700 [facility] Administration Protocol Insulin Aspart 50 units 01/08/20 16:30 01/08/20 17:19 Novolog Mix 70/30 Vial SQ Not Given BIDAC [facility] Insulin Aspart 1 vial 01/08/20 16:30 01/08/20 16:57 Novolog Vial Sliding Scale - SQ Not Given TIDAC [facility] Protocol Liraglutide 1.8 mg 01/09/20 07:00 Victoza - SQ DAILY@0700 [facility] Magnesium Oxide 400 mg 01/09/20 10:00 Mag-Ox - PO DAILY [facility] Metformin HCl 500 mg 01/08/20 16:30 01/08/20 17:19 Glucophage - PO 500 mg BIDI [facility] Administration Multivitamins/Minerals/Vitamin C 1 tab 01/09/20 10:00 Tab-A-Vit - PO DAILY [facility] Lmqpw-[id number] Ethyl Esters 1 gm 01/09/20 10:00 Lovaza - PO DAILY [facility] Ondansetron HCl 4 mg 01/08/20 15:42 Zofran Injection IVPUSH Q6H PRN NAUSEA AND/OR VOMITING Oxycodone HCl 10 mg 01/08/20 15:42 01/08/20 21:16 Roxicodone - PO 01/09/20 15:41 10 mg Q4H PRN Administration PAIN LEVEL 6-10 Promethazine HCl 12.5 mg 01/08/20 15:42 Phenergan Injection - IVPUSH Q6H PRN NAUSEA-FOR RESCUE AFTER 15 MIN Laboratory Results - last 24 hr 01/08/20 01/08/20 06:11 16:12 POC Glucometer 125 98 S1 S2 RRR Lungs clear ABd-soft,obese, NT edema+ right leg wound dressing in place A/P Non healing right leg wound Obesity DM Asthma -- iv antibiotics -- ID eval noted -- sugars controlled -- for OR Problem List - Problems (1) Diabetic leg 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 Code(s): E10.622 - TYPE 1 DIABETES MELLITUS WITH OTHER SKIN ULCER; L97.909 - NON-PRS CHRONIC ULC UNSP PRT OF UNSP LOW LEG W UNSP SEVERITY (2) Venous stasis Code(s): I87.8 - OTHER SPECIFIED DISORDERS OF VEINS (3) Insulin dependent diabetes mellitus Code(s): E11.9 - TYPE 2 DIABETES MELLITUS WITHOUT COMPLICATIONS; Z79.4 - [employer] (CURRENT) USE OF INSULIN (4) MRSA (methicillin resistant Staphylococcus aureus) infection Code(s): A49.02 - METHICILLIN RESIS STAPH INFECTION, UNSP SITE (5) Morbid obesity Code(s): E66.01 - MORBID (SEVERE) OBESITY DUE TO EXCESS CALORIES (6) Non-healing wound of lower extremity Code(s): S81.809A - UNSPECIFIED OPEN WOUND, UNSPECIFIED LOWER LEG, INIT ENCNTR
[2020-01-09] MEDS: oxyCODONE HCL 5 MG TABLET PO PRN (03:19)
[2020-01-09] MEDS: metFORMIN HCL 500 MG TABLET (FP) PO SCH ×2 (06:16→17:05)
[2020-01-09] MEDS: FUROSEMIDE 40 MG TABLET (FP) PO SCH ×2 (06:16→13:59)
[2020-01-09] MEDS: GABAPENTIN 300 MG CAPSULE PO SCH ×3 (06:16→21:15)
[2020-01-09] MEDS: INSULIN SLIDING SCALE (NOVOLOG) 1 VIAL SQ SCH ×3 (06:17→16:49)
[2020-01-09] MEDS: INSULIN (NOVOLOG MIX 70/30) 100 UNITS/ML MDV SQ SCH ×2 (06:19→16:49)
[2020-01-09] MEDS ORDERED: PT OWN MED DRAWER 7, Y5N ONE (06:21)
[2020-01-09] MEDS: LIRAGLUTIDE 0.6 MG/0.1 ML PEN.INJCTR SQ SCH (06:22)
[2020-01-09] MEDS ORDERED: cefTRIAXone SODIUM 1 GM VIAL ONE (09:38)
[2020-01-09] MEDS ORDERED: DEXTROSE 5%-WATER - 50 ML IVPB ONE (09:39)
[2020-01-09] MEDS: MAGNESIUM OXIDE 400 MG TABLET (FP) PO SCH (09:43)
[2020-01-09] MEDS: MULTIVITAMINS (DAILY MVI) TABLET (FP) PO SCH (09:43)
[2020-01-09] MEDS: ENOXAPARIN NA (PORCINE) 40 MG/0.4 ML DISP.SYRIN SQ SCH (09:45)
[2020-01-09] MEDS: CEFTRIAXONE 1 GM in DEXTROSE 5%-WATER - 50 ML IVPB SCH (09:46)
[2020-01-09] MEDS: OMEGA-3 ACID ETHYL ESTERS (FATTY-ACIDS) 1 GM CAPSULE (FP) PO SCH (09:49)
[2020-01-09] MEDS: ACETAMINOPHEN 325 MG TABLET (FP) PO PRN ×2 (11:39→17:08)
--- NOTE | 2020-01-09 11:41 | PN ---
Progress Note, Physician History of Present Illness: stable no new issues post op now with wound vac - Current Medication List Current Medications: Active Medications Acetaminophen (Tylenol -) 650 mg PO Q4H PRN PRN Reason: PAIN LEVEL 1-5 Enoxaparin Sodium (Lovenox -) 40 mg SQ DAILY [facility] Last Admin: 01/09/20 09:45 Dose: 40 mg Documented by: Fentanyl (Sublimaze Injection -) 50 mcg IVPUSH [id number] PRN PRN Reason: PAIN-PACU ORDER X 4 DOSES ONLY Last Admin: 01/08/20 16:08 Dose: 50 mcg Documented by: Furosemide (Lasix -) 40 mg PO BIDLASIX [facility] Last Admin: 01/09/20 06:16 Dose: Not Given Documented by: Gabapentin (Neurontin -) 300 mg PO TID [facility] Last Admin: 01/09/20 06:16 Dose: 300 mg Documented by: Ceftriaxone Sodium 1 gm/ (Dextrose) 50 mls @ 100 mls/hr IVPB DAILY [facility]; Protocol Last Admin: 01/09/20 09:46 Dose: 100 mls/hr Documented by: Vancomycin HCl 1,500 mg/ (Dextrose) 500 mls @ 250 mls/hr IVPB DAILY@1700 [facility]; Protocol Last Admin: 01/08/20 17:59 Dose: 250 mls/hr Documented by: Insulin Aspart (Novolog Mix 70/30 Vial) 50 units SQ BIDAC [facility] Last Admin: 01/09/20 06:19 Dose: Not Given Documented by: Insulin Aspart (Novolog Vial Sliding Scale -) 1 vial SQ TIDAC [facility]; Protocol Last Admin: 01/09/20 11:04 Dose: Not Given Documented by: Liraglutide (Victoza -) 1.8 mg SQ DAILY@0700 [facility] Last Admin: 01/09/20 06:22 Dose: 1.8 mg Documented by: Magnesium Oxide (Mag-Ox -) 400 mg PO DAILY [facility] Last Admin: 01/09/20 09:43 Dose: 400 mg Documented by: Metformin HCl (Glucophage -) 500 mg PO BIDI [facility] Last Admin: 01/09/20 06:16 Dose: 500 mg Documented by: Multivitamins/Minerals/Vitamin C (Tab-A-Vit -) 1 tab PO DAILY [facility] Last Admin: 01/09/20 09:43 Dose: 1 tab Documented by: [id number] Ethyl Esters (Lovaza -) 1 gm PO DAILY [facility] Last Admin: 01/09/20 09:49 Dose: 1 gm Documented by: Ondansetron HCl (Zofran Injection) 4 mg IVPUSH Q6H PRN PRN Reason: NAUSEA AND/OR VOMITING Oxycodone HCl (Roxicodone -) 10 mg PO Q4H PRN PRN Reason: PAIN LEVEL 6-10 Stop: 01/09/20 15:41 Last Admin: 01/09/20 03:19 Dose: 10 mg Documented by: Promethazine HCl (Phenergan Injection -) 12.5 mg IVPUSH Q6H PRN PRN Reason: NAUSEA-FOR RESCUE AFTER 15 MIN - Objective Vital Signs: Vital Signs Temperature 98.2 F 01/09/20 10:00 Pulse Rate 72 01/09/20 10:00 Respiratory Rate 18 01/09/20 10:00 Blood Pressure 120/77 01/09/20 10:00 O2 Sat by Pulse Oximetry (%) 94 L 01/09/20 10:00 Constitutional: Yes: No Distress, Calm Cardiovascular: Yes: S1, S2 Respiratory: Yes: Regular, CTA Bilaterally Gastrointestinal: Yes: Normal Bowel Sounds, Soft Musculoskeletal: Yes: WNL Extremities: Yes: Other Wound/Incision: Yes: Other (wound vac in place) Neurological: Yes: Alert, Oriented Psychiatric: Yes: Alert, Oriented Labs: CBC, BMP 01/06/20 08:40 01/06/20 08:40 INR, PTT INR 1.00 (0.83-1.09) 01/05/20 14:45 Assessment/Plan Problem List - Problems (1) MRSA (methicillin resistant Staphylococcus aureus) infection Problems reviewed: Yes Code(s): A49.02 - METHICILLIN RESIS STAPH INFECTION, UNSP SITE (2) Diabetic leg 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 Problems reviewed: Yes Code(s): E10.622 - TYPE 1 DIABETES MELLITUS WITH OTHER SKIN ULCER; L97.909 - NON-PRS CHRONIC ULC UNSP PRT OF UNSP LOW LEG W UNSP SEVERITY (3) Non-healing wound of lower extremity Problems reviewed: Yes Code(s): S81.809A - UNSPECIFIED OPEN WOUND, UNSPECIFIED LOWER LEG, INIT ENCNTR Qualifiers: Encounter type: initial encounter Laterality: right Qualified Code(s): S81.801A - Unspecified open wound, right lower leg, initial encounter (4) Morbid obesity Problems reviewed: Yes Code(s): E66.01 - MORBID (SEVERE) OBESITY DUE TO EXCESS CALORIES plan continue abx rest as per the team
[2020-01-09] MEDS: VANCOMYCIN HCL 1,500 MG in DEXTROSE 5%-WATER - 500 ML IVPB SCH (20:08)
[2020-01-09] MEDS ORDERED: VANCOMYCIN 500 MG in DEXTROSE 5%-WATER 100 ML IVPB ONE (20:45)
[2020-01-09] MEDS ORDERED: VANCOMYCIN 500 MG VIAL (RESTRICTED TO ID ONLY) ONE (21:28)
[2020-01-09] MEDS ORDERED: DEXTROSE 5%-WATER 100 ML IVPB ONE (21:28)
--- NOTE | 2020-01-09 21:29 | PN ---
Progress Note (short form) - Note Progress Note: Pt examined earlier today Events noted s/p right leg wound debridement, wound vac sugars are controlled pt denies pain Vital Signs - 24 hr 01/08/20 01/09/20 01/09/20 22:00 06:00 09:00 Temperature 98.5 F 98.1 F Pulse Rate 73 67 Respiratory 18 18 Rate Blood Pressure 137/86 133/61 O2 Sat by Pulse 97 96 94 L Oximetry (%) 01/09/20 01/09/20 01/09/20 10:00 14:39 18:47 Temperature 98.2 F 99.1 F 98.3 F Pulse Rate 72 73 65 Respiratory 18 18 18 Rate Blood Pressure 120/77 153/57 L 148/97 O2 Sat by Pulse 94 L Oximetry (%) 01/09/20 20:44 Temperature Pulse Rate Respiratory 18 Rate Blood Pressure O2 Sat by Pulse 95 Oximetry (%) Current Medications Generic Name Dose Route Start Last Admin Trade Name Freq PRN Reason Stop Dose Admin Acetaminophen 650 mg 01/08/20 16:14 01/09/20 17:08 Tylenol - PO 650 mg Q4H PRN Administration PAIN LEVEL 1-5 Enoxaparin Sodium 40 mg 01/09/20 10:00 01/09/20 09:45 Lovenox - SQ 40 mg DAILY [facility] Administration Fentanyl 50 mcg 01/08/20 15:42 01/08/20 16:08 Sublimaze Injection - IVPUSH 50 mcg [id number] PRN Administration PAIN-PACU ORDER X 4 DOSES ONLY Furosemide 40 mg 01/09/20 06:00 01/09/20 13:59 Lasix - PO Not Given BIDLASIX [facility] Gabapentin 300 mg 01/08/20 22:00 01/09/20 21:15 Neurontin - PO 300 mg TID [facility] Administration Ceftriaxone Sodium 1 gm/ 50 mls @ 100 mls/hr 01/09/20 10:00 01/09/20 09:46 Dextrose IVPB 100 mls/hr DAILY [facility] Administration Protocol Vancomycin HCl 1,500 mg/ 500 mls @ 250 mls/hr 01/08/20 17:00 01/09/20 20:08 Dextrose IVPB 250 mls/hr DAILY@1700 [facility] Administration Protocol Vancomycin HCl 500 mg/ 100 mls @ 100 mls/hr 01/09/20 20:45 Dextrose IVPB 01/09/20 21:44 ONCE ONE Insulin Aspart 50 units 01/08/20 16:30 01/09/20 16:49 Novolog Mix 70/30 Vial SQ Not Given [facility] Insulin Aspart 1 vial 01/08/20 16:30 01/09/20 16:49 Novolog Vial Sliding Scale - SQ Not Given TIDAC [facility] Protocol Liraglutide 1.8 mg 01/09/20 07:00 01/09/20 06:22 Victoza - SQ 1.8 mg DAILY@0700 [facility] Administration Magnesium Oxide 400 mg 01/09/20 10:00 01/09/20 09:43 Mag-Ox - PO 400 mg DAILY [facility] Administration Metformin HCl 500 mg 01/08/20 16:30 01/09/20 17:05 Glucophage - PO 500 mg BIDI [facility] Administration Multivitamins/Minerals/Vitamin C 1 tab 01/09/20 10:00 01/09/20 09:43 Tab-A-Vit - PO 1 tab DAILY [facility] Administration [id number]-[id number] Ethyl Esters 1 gm 01/09/20 10:00 01/09/20 09:49 Lovaza - PO 1 gm DAILY [facility] Administration Ondansetron HCl 4 mg 01/08/20 15:42 Zofran Injection IVPUSH Q6H PRN NAUSEA AND/OR VOMITING Promethazine HCl 12.5 mg 01/08/20 15:42 Phenergan Injection - IVPUSH Q6H PRN NAUSEA-FOR RESCUE AFTER 15 MIN Laboratory Results - last 24 hr 01/09/20 01/09/20 01/09/20 06:13 11:02 16:48 POC Glucometer 124 127 112 Vancomycin Pre-Dose 01/09/20 17:50 POC Glucometer Vancomycin Pre-Dose 5.4 S1 S2 RRR Lungs clear ABd-soft,obese, NT edema+ right leg wound dressing in place, wound vac A/P Non healing right leg wound Obesity DM Asthma -- iv antibiotics -- ID eval noted -- sugars controlled --wound vac Problem List - Problems (1) Diabetic leg 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 Code(s): E10.622 - TYPE 1 DIABETES MELLITUS WITH OTHER SKIN ULCER; L97.909 - NON-PRS CHRONIC ULC UNSP PRT OF UNSP LOW LEG W UNSP SEVERITY (2) Venous stasis Code(s): I87.8 - OTHER SPECIFIED DISORDERS OF VEINS (3) Insulin dependent diabetes mellitus Code(s): E11.9 - TYPE 2 DIABETES MELLITUS WITHOUT COMPLICATIONS; Z79.4 - [facility]SING HOME (CURRENT) USE OF INSULIN (4) MRSA (methicillin resistant Staphylococcus aureus) infection Code(s): A49.02 - METHICILLIN RESIS STAPH INFECTION, UNSP SITE (5) Morbid obesity Code(s): E66.01 - MORBID (SEVERE) OBESITY DUE TO EXCESS CALORIES (6) Non-healing wound of lower extremity Code(s): S81.809A - UNSPECIFIED OPEN WOUND, UNSPECIFIED LOWER LEG, INIT ENCNTR
[2020-01-10] MEDS: ACETAMINOPHEN 325 MG TABLET (FP) PO PRN ×3 (01:00→09:13)
[2020-01-10] MEDS: FUROSEMIDE 40 MG TABLET (FP) PO SCH ×2 (05:57→13:49)
[2020-01-10] MEDS: GABAPENTIN 300 MG CAPSULE PO SCH ×3 (05:57→21:08)
[2020-01-10] MEDS: INSULIN SLIDING SCALE (NOVOLOG) 1 VIAL SQ SCH ×3 (06:02→16:25)
[2020-01-10] MEDS: INSULIN (NOVOLOG MIX 70/30) 100 UNITS/ML MDV SQ SCH ×3 (06:20→16:16)
[2020-01-10] MEDS: metFORMIN HCL 500 MG TABLET (FP) PO SCH ×2 (06:20→16:16)
[2020-01-10] MEDS ORDERED: PT OWN MED DRAWER 7, Y5N ONE ×3 (06:22→20:35)
[2020-01-10] MEDS: LIRAGLUTIDE 0.6 MG/0.1 ML PEN.INJCTR SQ SCH (06:23)
[2020-01-10] MEDS ORDERED: oxyCODONE HCL 5 MG TABLET PO PRN (08:54)
--- NOTE | 2020-01-10 09:03 | PN ---
Progress Note (short form) - Note Progress Note: POD 2, s/p Excisional debridement skin, subcutaneous tissue with placement of vac Pt seen and examined. States she is having some pain. Concerned about leaking from under tegaderma. Has been oob to the restroom. Tolerating PO, voiding. Denies cp/sob, n/v/d. Vital Signs Temp 98.7 F 01/10/20 05:45 Pulse 64 01/10/20 05:45 Resp 18 01/10/20 05:45 BP 155/80 01/10/20 05:45 Pulse Ox 95 01/10/20 05:45 Intake & Output 01/09/20 01/09/20 01/10/20 11:59 23:59 11:59 Intake Total 150 520 790 Output Total 10 Balance 140 520 790 Intake: IVPB 50 550 Oral 100 520 240 Output: Drainage 10 Right Lower Anterior 10 Other: Voiding Method Toilet Toilet # Unmeasured Voids Void 1 Bowel Movement No No CBC, BMP 01/06/20 08:40 01/06/20 08:40 Gen: awake, alert, nad Resp: unlabored on ra Ext: RLE with wound vac in place, vac removed, wound 5.5x4.5x.5cm with granulation tissue present, scant bleeding noted laterally, surrounding tissue with minimal maceration distally. No foul odor, no erythema noted. A/P: 59 y/o F w/ PMHx IDDM, HLD, chronic LE wound (h/o MRSA) a/w nonhealing/infected chronic right lower extremity wound, now POD 1 s/p Excisional debridement skin, subcutaneous tissue with placement of vac afebrile, vss wound with granulation tissue present, some skin maceration distally -Wound vac to be changed Wednesday, if pt has weeping please reinforce with kerlix instead of tegaderm due to adhesive sensitivity. -Continue abx per ID -will need home vac, foster care case manager aware awaiting paperwork d/w attending Dr Becerril
[2020-01-10] MEDS ORDERED: cefTRIAXone SODIUM 1 GM VIAL ONE (09:08)
[2020-01-10] MEDS ORDERED: DEXTROSE 5%-WATER - 50 ML IVPB ONE (09:08)
[2020-01-10] MEDS: OMEGA-3 ACID ETHYL ESTERS (FATTY-ACIDS) 1 GM CAPSULE (FP) PO SCH (09:12)
[2020-01-10] MEDS: MAGNESIUM OXIDE 400 MG TABLET (FP) PO SCH (09:12)
[2020-01-10] MEDS: MULTIVITAMINS (DAILY MVI) TABLET (FP) PO SCH (09:12)
[2020-01-10] MEDS: oxyCODONE HCL 5 MG TABLET PO PRN ×3 (09:13→23:30)
[2020-01-10] MEDS: ENOXAPARIN NA (PORCINE) 40 MG/0.4 ML DISP.SYRIN SQ SCH (09:14)
[2020-01-10] MEDS: CEFTRIAXONE 1 GM in DEXTROSE 5%-WATER - 50 ML IVPB SCH (09:14)
--- NOTE | 2020-01-10 09:43 | PN ---
Progress Note, Physician History of Present Illness: stable no new issues wound vac changed - Current Medication List Current Medications: Active Medications Acetaminophen (Tylenol -) 650 mg PO Q4H PRN PRN Reason: PAIN LEVEL 1-3 Last Admin: 01/10/20 09:13 Dose: 650 mg Documented by: Enoxaparin Sodium (Lovenox -) 40 mg SQ DAILY [facility] Last Admin: 01/10/20 09:14 Dose: 40 mg Documented by: Furosemide (Lasix -) 40 mg PO BIDLASIX [facility] Last Admin: 01/10/20 05:57 Dose: 40 mg Documented by: Gabapentin (Neurontin -) 300 mg PO TID [facility] Last Admin: 01/10/20 05:57 Dose: 300 mg Documented by: Ceftriaxone Sodium 1 gm/ (Dextrose) 50 mls @ 100 mls/hr IVPB DAILY [facility]; Protocol Last Admin: 01/10/20 09:14 Dose: 100 mls/hr Documented by: Vancomycin HCl 1,500 mg/ (Dextrose) 500 mls @ 250 mls/hr IVPB DAILY@1700 [facility]; Protocol Last Admin: 01/09/20 20:08 Dose: 250 mls/hr Documented by: Insulin Aspart (Novolog Mix 70/30 Vial) 50 units SQ BIDAC [facility] Last Admin: 01/10/20 06:40 Dose: Not Given Documented by: Insulin Aspart (Novolog Vial Sliding Scale -) 1 vial SQ TIDAC [facility]; Protocol Last Admin: 01/10/20 06:02 Dose: Not Given Documented by: Liraglutide (Victoza -) 1.8 mg SQ DAILY@0700 [facility] Last Admin: 01/10/20 06:23 Dose: 1.8 mg Documented by: Magnesium Oxide (Mag-Ox -) 400 mg PO DAILY [facility] Last Admin: 01/10/20 09:12 Dose: 400 mg Documented by: Metformin HCl (Glucophage -) 500 mg PO BIDI [facility] Last Admin: 01/10/20 06:20 Dose: 500 mg Documented by: Multivitamins/Minerals/Vitamin C (Tab-A-Vit -) 1 tab PO DAILY [facility] Last Admin: 01/10/20 09:12 Dose: 1 tab Documented by: [id number] Ethyl Esters (Lovaza -) 1 gm PO DAILY [facility] Last Admin: 01/10/20 09:12 Dose: 1 gm Documented by: Ondansetron HCl (Zofran Injection) 4 mg IVPUSH Q6H PRN PRN Reason: NAUSEA AND/OR VOMITING Oxycodone HCl (Roxicodone -) 5 mg PO Q4H PRN PRN Reason: PAIN LEVEL 4-6 Oxycodone HCl (Roxicodone -) 10 mg PO Q4H PRN PRN Reason: PAIN LEVEL 7 - 10 Last Admin: 01/10/20 09:13 Dose: 10 mg Documented by: Promethazine HCl (Phenergan Injection -) 12.5 mg IVPUSH Q6H PRN PRN Reason: NAUSEA-FOR RESCUE AFTER 15 MIN - Objective Vital Signs: Vital Signs Temperature 98.7 F 01/10/20 05:45 Pulse Rate 64 01/10/20 05:45 Respiratory Rate 18 01/10/20 05:45 Blood Pressure 155/80 01/10/20 05:45 O2 Sat by Pulse Oximetry (%) 95 01/10/20 05:45 Constitutional: Yes: No Distress, Calm, Obese Cardiovascular: Yes: S1, S2 Respiratory: Yes: Regular, CTA Bilaterally Gastrointestinal: Yes: Normal Bowel Sounds, Soft Musculoskeletal: Yes: WNL Extremities: Yes: Other Wound/Incision: Yes: Other (wound vac in place) Neurological: Yes: Alert, Oriented Psychiatric: Yes: Alert, Oriented Labs: CBC, BMP 01/06/20 08:40 01/06/20 08:40 INR, PTT INR 1.00 (0.83-1.09) 01/05/20 14:45 Assessment/Plan Problem List - Problems (1) MRSA (methicillin resistant Staphylococcus aureus) infection Problems reviewed: Yes Code(s): A49.02 - METHICILLIN RESIS STAPH INFECTION, UNSP SITE (2) Diabetic leg 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 Problems reviewed: Yes Code(s): E10.622 - TYPE 1 DIABETES MELLITUS WITH OTHER SKIN ULCER; L97.909 - NON-PRS CHRONIC ULC UNSP PRT OF UNSP LOW LEG W UNSP SEVERITY (3) Non-healing wound of lower extremity Problems reviewed: Yes Code(s): S81.809A - UNSPECIFIED OPEN WOUND, UNSPECIFIED LOWER LEG, INIT ENCNTR Qualifiers: Encounter type: initial encounter Laterality: right Qualified Code(s): S81.801A - Unspecified open wound, right lower leg, initial encounter (4) Morbid obesity Problems reviewed: Yes Code(s): E66.01 - MORBID (SEVERE) OBESITY DUE TO EXCESS CALORIES plan continue abx vanco trough noted will increase vanco dose rest as per the team
[2020-01-10] MEDS: VANCOMYCIN HCL 1,250 MG in DEXTROSE 5%-WATER - 250 ML IVPB SCH ×2 (11:16→21:08)
--- NOTE | 2020-01-10 11:58 | PN ---
Progress Note, Physician Chief Complaint: s/p i and d of lower leg ulcer History of Present Illness: post op day one, under MAC anesthesia - Current Medication List Current Medications: Active Medications Acetaminophen (Tylenol -) 650 mg PO Q4H PRN PRN Reason: PAIN LEVEL 1-3 Last Admin: 01/10/20 09:13 Dose: 650 mg Documented by: Enoxaparin Sodium (Lovenox -) 40 mg SQ DAILY [facility] Last Admin: 01/10/20 09:14 Dose: 40 mg Documented by: Furosemide (Lasix -) 40 mg PO BIDLASIX [facility] Last Admin: 01/10/20 05:57 Dose: 40 mg Documented by: Gabapentin (Neurontin -) 300 mg PO TID [facility] Last Admin: 01/10/20 05:57 Dose: 300 mg Documented by: Ceftriaxone Sodium 1 gm/ (Dextrose) 50 mls @ 100 mls/hr IVPB DAILY [facility]; Protocol Last Admin: 01/10/20 09:14 Dose: 100 mls/hr Documented by: Vancomycin HCl 1,250 mg/ (Dextrose) 250 mls @ 125 mls/hr IVPB BID [facility]; Protocol Last Admin: 01/10/20 11:16 Dose: 125 mls/hr Documented by: Insulin Aspart (Novolog Mix 70/30 Vial) 50 units SQ BIDAC [facility] Last Admin: 01/10/20 06:40 Dose: Not Given Documented by: Insulin Aspart (Novolog Vial Sliding Scale -) 1 vial SQ TIDAC [facility]; Protocol Last Admin: 01/10/20 11:16 Dose: Not Given Documented by: Liraglutide (Victoza -) 1.8 mg SQ DAILY@0700 [facility] Last Admin: 01/10/20 06:23 Dose: 1.8 mg Documented by: Magnesium Oxide (Mag-Ox -) 400 mg PO DAILY [facility] Last Admin: 01/10/20 09:12 Dose: 400 mg Documented by: Metformin HCl (Glucophage -) 500 mg PO BIDI [facility] Last Admin: 01/10/20 06:20 Dose: 500 mg Documented by: Multivitamins/Minerals/Vitamin C (Tab-A-Vit -) 1 tab PO DAILY [facility] Last Admin: 01/10/20 09:12 Dose: 1 tab Documented by: [id number] Ethyl Esters (Lovaza -) 1 gm PO DAILY [facility] Last Admin: 01/10/20 09:12 Dose: 1 gm Documented by: Ondansetron HCl (Zofran Injection) 4 mg IVPUSH Q6H PRN PRN Reason: NAUSEA AND/OR VOMITING Oxycodone HCl (Roxicodone -) 5 mg PO Q4H PRN PRN Reason: PAIN LEVEL 4-6 Oxycodone HCl (Roxicodone -) 10 mg PO Q4H PRN PRN Reason: PAIN LEVEL 7 - 10 Last Admin: 01/10/20 09:13 Dose: 10 mg Documented by: Promethazine HCl (Phenergan Injection -) 12.5 mg IVPUSH Q6H PRN PRN Reason: NAUSEA-FOR RESCUE AFTER 15 MIN - Objective Vital Signs: Vital Signs Temperature 97.9 F 01/10/20 10:00 Pulse Rate 72 01/10/20 10:00 Respiratory Rate 18 01/10/20 10:00 Blood Pressure 142/80 01/10/20 10:00 O2 Sat by Pulse Oximetry (%) 98 01/10/20 10:00 Constitutional: Yes: Well Nourished Cardiovascular: Yes: WNL Respiratory: Yes: WNL Gastrointestinal: Yes: WNL Labs: CBC, BMP 01/06/20 08:40 01/06/20 08:40 INR, PTT INR 1.00 (0.83-1.09) 01/05/20 14:45 Assessment/Plan no adverse effects of anesthetic, dept of anesthesiology will sign off care at this time
--- NOTE | 2020-01-10 14:17 | PN ---
Progress Note (short form) - Note Progress Note: Pt examined today s/p right leg wound debridement, wound vac sugars are controlled pt denies pain Vital Signs - 24 hr 01/09/20 01/09/20 01/09/20 14:39 18:47 20:44 Temperature 99.1 F 98.3 F Pulse Rate 73 65 Respiratory 18 18 18 Rate Blood Pressure 153/57 L 148/97 O2 Sat by Pulse 95 Oximetry (%) 01/10/20 01/10/20 01/10/20 05:45 09:00 10:00 Temperature 98.7 F 97.9 F Pulse Rate 64 72 Respiratory 18 18 18 Rate Blood Pressure 155/80 142/80 O2 Sat by Pulse 95 98 98 Oximetry (%) Current Medications Generic Name Dose Route Start Last Admin Trade Name Freq PRN Reason Stop Dose Admin Acetaminophen 650 mg 01/08/20 16:14 01/10/20 09:13 Tylenol - PO 650 mg Q4H PRN Administration PAIN LEVEL 1-3 Enoxaparin Sodium 40 mg 01/09/20 10:00 01/10/20 09:14 Lovenox - SQ 40 mg DAILY [facility] Administration Furosemide 40 mg 01/09/20 06:00 01/10/20 13:49 Lasix - PO Not Given BIDLASIX [facility] Gabapentin 300 mg 01/08/20 22:00 01/10/20 13:49 Neurontin - PO 300 mg TID [facility] Administration Ceftriaxone Sodium 1 gm/ 50 mls @ 100 mls/hr 01/09/20 10:00 01/10/20 09:14 Dextrose IVPB 100 mls/hr DAILY [facility] Administration Protocol Vancomycin HCl 1,250 mg/ 250 mls @ 125 mls/hr 01/10/20 10:00 01/10/20 11:16 Dextrose IVPB 125 mls/hr BID [facility] Administration Protocol Insulin Aspart 50 units 01/08/20 16:30 01/10/20 06:40 Novolog Mix 70/30 Vial SQ Not Given [facility] Insulin Aspart 1 vial 01/08/20 16:30 01/10/20 11:16 Novolog Vial Sliding Scale - SQ Not Given [facility] Protocol Liraglutide 1.8 mg 01/09/20 07:00 01/10/20 06:23 Victoza - SQ 1.8 mg DAILY@0700 [facility] Administration Magnesium Oxide 400 mg 01/09/20 10:00 01/10/20 09:12 Mag-Ox - PO 400 mg DAILY [facility] Administration Metformin HCl 500 mg 01/08/20 16:30 01/10/20 06:20 Glucophage - PO 500 mg BIDI [facility] Administration Multivitamins/Minerals/Vitamin C 1 tab 01/09/20 10:00 01/10/20 09:12 Tab-A-Vit - PO 1 tab DAILY [facility] Administration Csaoe-3-Llat Ethyl Esters 1 gm 01/09/20 10:00 01/10/20 09:12 Lovaza - PO 1 gm DAILY [facility] Administration Ondansetron HCl 4 mg 01/08/20 15:42 Zofran Injection IVPUSH Q6H PRN NAUSEA AND/OR VOMITING Oxycodone HCl 5 mg 01/10/20 08:54 Roxicodone - PO Q4H PRN PAIN LEVEL 4-6 Oxycodone HCl 10 mg 01/10/20 08:54 01/10/20 09:13 Roxicodone - PO 10 mg Q4H PRN Administration PAIN LEVEL 7 - 10 Promethazine HCl 12.5 mg 01/08/20 15:42 Phenergan Injection - IVPUSH Q6H PRN NAUSEA-FOR RESCUE AFTER 15 MIN Laboratory Results - last 24 hr 01/09/20 01/09/20 01/10/20 16:48 17:50 05:56 POC Glucometer 112 107 Vancomycin Pre-Dose 5.4 01/10/20 11:15 POC Glucometer 107 Vancomycin Pre-Dose S1 S2 RRR Lungs clear ABd-soft,obese, NT edema+ right leg wound dressing in place, wound vac A/P Non healing right leg wound Obesity DM Asthma -- iv antibiotics -- ID eval noted -- sugars controlled --wound vac Problem List - Problems (1) Diabetic leg 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 Code(s): E10.622 - TYPE 1 DIABETES MELLITUS WITH OTHER SKIN ULCER; L97.909 - NON-PRS CHRONIC ULC UNSP PRT OF UNSP LOW LEG W UNSP SEVERITY (2) Venous stasis Code(s): I87.8 - OTHER SPECIFIED DISORDERS OF VEINS (3) Insulin dependent diabetes mellitus Code(s): E11.9 - TYPE 2 DIABETES MELLITUS WITHOUT COMPLICATIONS; Z79.4 - USP (CURRENT) USE OF INSULIN (4) MRSA (methicillin resistant Staphylococcus aureus) infection Code(s): A49.02 - METHICILLIN RESIS STAPH INFECTION, UNSP SITE (5) Morbid obesity Code(s): E66.01 - MORBID (SEVERE) OBESITY DUE TO EXCESS CALORIES (6) Non-healing wound of lower extremity Code(s): S81.809A - UNSPECIFIED OPEN WOUND, UNSPECIFIED LOWER LEG, INIT ENCNTR
--- NOTE | 2020-01-10 16:29 | PATH ---
Surgical Pathology Report Patient Name: KARLA GANT [facility]. Rec. #: [id number] /Age/Gender: 1960 (Age: 59) / F Account: [id number] Location: [address] [place] [address]/[facility] Taken: 01/08/2020 Received: 01/09/2020 Reported: 01/10/2020 Physicians: Toney Velasco M.D. Specimen(s) Received DEBRIDED TISSUE RIGHT LOWER EXTREMITY Clinical History Nonhealing wound of right lower extremity Final Diagnosis DEBRIDED TISSUE RIGHT LOWER EXTREMITY, DEBRIDEMENT: PORTIONS OF SKIN WITH EXTENSIVE ULCERATION, MARKED ACUTE AND CHRONIC INFLAMMATION, GRANULATION TISSUE FORMATION AND FOCAL PSEUDOEPITHELIOMATOUS HYPERPLASIA. Electronically Signed Dash Cai M.D. Gross Description Received in formalin labeled "debrided tissue right lower extremity," is a 2.2 x 1.6 x 0.2 cm aggregate of arenas-brown soft tissue fragments. The specimen is entirely submitted in one cassette. /01/09/2020 [facility]01/09/2020
[2020-01-11] MEDS ORDERED: PT OWN MED DRAWER 7, Y5N ONE ×5 (05:19→21:58)
[2020-01-11] MEDS: INSULIN SLIDING SCALE (NOVOLOG) 1 VIAL SQ SCH ×3 (06:41→16:46)
[2020-01-11] MEDS: INSULIN (NOVOLOG MIX 70/30) 100 UNITS/ML MDV SQ SCH ×2 (06:41→16:55)
[2020-01-11] MEDS: metFORMIN HCL 500 MG TABLET (FP) PO SCH ×2 (06:49→16:54)
[2020-01-11] MEDS: GABAPENTIN 300 MG CAPSULE PO SCH ×3 (06:49→22:00)
[2020-01-11] MEDS: FUROSEMIDE 40 MG TABLET (FP) PO SCH ×2 (06:49→14:18)
[2020-01-11] MEDS: LIRAGLUTIDE 0.6 MG/0.1 ML PEN.INJCTR SQ SCH (06:50)
[2020-01-11 08:17] LABS: HEMATOCRIT 42.5 % (32.4-45.2); HEMOGLOBIN 13.8 GM/dL (10.7-15.3); MCH 29.3 pg (25.7-33.7); MCHC 32.3 g/dl (32.0-36.0); MEAN CELL VOLUME 90.5 fl (80-96); PLATELET COUNT 245 K/MM3 (134-434); RDW 13.6 % (11.6-15.6); WHITE BLOOD COUNT 7.6 K/mm3 (4.0-10.0)
[2020-01-11 08:43] LABS: BLOOD UREA NITROGEN 12.4 mg/dL (7-18); CALCIUM 8.4 mg/dL (8.5-10.1); CREATININE 0.7 mg/dL (0.55-1.3); POTASSIUM 3.9 mmol/L (3.5-5.1)
[2020-01-11] MEDS: oxyCODONE HCL 5 MG TABLET PO PRN ×2 (09:05→16:54)
[2020-01-11] MEDS ORDERED: cefTRIAXone SODIUM 1 GM VIAL ONE (10:12)
[2020-01-11] MEDS ORDERED: DEXTROSE 5%-WATER - 50 ML IVPB ONE (10:12)
[2020-01-11] MEDS: ENOXAPARIN NA (PORCINE) 40 MG/0.4 ML DISP.SYRIN SQ SCH (10:29)
[2020-01-11] MEDS: MULTIVITAMINS (DAILY MVI) TABLET (FP) PO SCH (10:29)
[2020-01-11] MEDS: OMEGA-3 ACID ETHYL ESTERS (FATTY-ACIDS) 1 GM CAPSULE (FP) PO SCH (10:29)
[2020-01-11] MEDS: MAGNESIUM OXIDE 400 MG TABLET (FP) PO SCH (10:29)
[2020-01-11] MEDS: CEFTRIAXONE 1 GM in DEXTROSE 5%-WATER - 50 ML IVPB SCH (10:29)
[2020-01-11] MEDS: VANCOMYCIN HCL 1,250 MG in DEXTROSE 5%-WATER - 250 ML IVPB SCH ×2 (11:30→22:03)
--- NOTE | 2020-01-11 13:21 | PN ---
Progress Note (short form) - Note Progress Note: Pt examined today s/p right leg wound debridement, wound vac sugars are controlled pt has mild pain Vital Signs - 24 hr 01/10/20 01/10/20 01/10/20 14:47 19:09 23:23 Temperature 98.1 F 98.6 F Pulse Rate 71 62 71 Respiratory 18 18 18 Rate Blood Pressure 145/68 157/61 148/77 O2 Sat by Pulse Oximetry (%) 01/11/20 01/11/20 01/11/20 05:55 09:00 10:00 Temperature 98.4 F 99 F Pulse Rate 61 88 Respiratory 18 18 18 Rate Blood Pressure 143/86 163/77 O2 Sat by Pulse 96 96 96 Oximetry (%) Current Medications Generic Name Dose Route Start Last Admin Trade Name Freq PRN Reason Stop Dose Admin Acetaminophen 650 mg 01/08/20 16:14 01/10/20 09:13 Tylenol - PO 650 mg Q4H PRN Administration PAIN LEVEL 1-3 Enoxaparin Sodium 40 mg 01/09/20 10:00 01/11/20 10:29 Lovenox - SQ 40 mg DAILY CRISTINE Administration Furosemide 40 mg 01/09/20 06:00 01/11/20 06:49 Lasix - PO 40 mg BIDLASIX CRISTINE Administration Gabapentin 300 mg 01/08/20 22:00 01/11/20 06:49 Neurontin - PO 300 mg TID CRISTINE Administration Ceftriaxone Sodium 1 gm/ 50 mls @ 100 mls/hr 01/09/20 10:00 01/11/20 10:29 Dextrose IVPB 100 mls/hr DAILY CRISTINE Administration Protocol Vancomycin HCl 1,250 mg/ 250 mls @ 125 mls/hr 01/10/20 10:00 01/11/20 11:30 Dextrose IVPB 125 mls/hr BID CRISTINE Administration Protocol Insulin Aspart 50 units 01/08/20 16:30 01/11/20 06:41 Novolog Mix 70/30 Vial SQ Not Given [facility] Insulin Aspart 1 vial 01/08/20 16:30 01/11/20 11:46 Novolog Vial Sliding Scale - SQ Not Given [facility] Protocol Liraglutide 1.8 mg 01/09/20 07:00 01/11/20 06:50 Victoza - SQ 1.8 mg DAILY@0700 CRISTINE Administration Magnesium Oxide 400 mg 01/09/20 10:00 01/11/20 10:29 Mag-Ox - PO 400 mg DAILY CRISTINE Administration Metformin HCl 500 mg 01/08/20 16:30 01/11/20 06:49 Glucophage - PO 500 mg BIDI CRISTINE Administration Multivitamins/Minerals/Vitamin C 1 tab 01/09/20 10:00 01/11/20 10:29 Tab-A-Vit - PO 1 tab DAILY CRISTINE Administration [id number]-[id number] Ethyl Esters 1 gm 01/09/20 10:00 01/11/20 10:29 Lovaza - PO 1 gm DAILY CRISTINE Administration Ondansetron HCl 4 mg 01/08/20 15:42 Zofran Injection IVPUSH Q6H PRN NAUSEA AND/OR VOMITING Oxycodone HCl 5 mg 01/10/20 08:54 Roxicodone - PO Q4H PRN PAIN LEVEL 4-6 Oxycodone HCl 10 mg 01/10/20 08:54 01/11/20 09:05 Roxicodone - PO 10 mg Q4H PRN Administration PAIN LEVEL 7 - 10 Promethazine HCl 12.5 mg 01/08/20 15:42 Phenergan Injection - IVPUSH Q6H PRN NAUSEA-FOR RESCUE AFTER 15 MIN Laboratory Results - last 24 hr 01/10/20 01/11/20 01/11/20 16:15 06:40 07:25 WBC 7.6 RBC 4.70 Hgb 13.8 Hct 42.5 MCV 90.5 MCH 29.3 MCHC 32.3 RDW 13.6 Plt Count 245 MPV 8.0 Sodium Potassium Chloride Carbon Dioxide Anion Gap BUN Creatinine Est GFR (CKD-EPI)AfAm Est GFR (CKD-EPI)NonAf POC Glucometer 150 106 Random Glucose Calcium Triglycerides Cholesterol Total LDL Cholesterol HDL Cholesterol 01/11/20 01/11/20 07:25 11:21 WBC RBC Hgb Hct MCV MCH MCHC RDW Plt Count MPV Sodium 142 Potassium 3.9 Chloride 109 H Carbon Dioxide 25 Anion Gap 9 BUN 12.4 Creatinine 0.7 Est GFR (CKD-EPI)AfAm 110.69 Est GFR (CKD-EPI)NonAf 95.50 POC Glucometer 137 Random Glucose 110 H Calcium 8.4 L Triglycerides 212 H Cholesterol 183 Total LDL Cholesterol 118 H HDL Cholesterol 35 L S1 S2 RRR Lungs clear ABd-soft,obese, NT edema+ right leg wound dressing in place, wound vac A/P Non healing right leg wound Obesity DM Asthma -- iv antibiotics-- will be on PO upon discharge -- ID renuka noted -- sugars controlled --wound vac -- possible dc tomorrow after dressing - she will get wound vac for home -- she is willing to come here to wound care 3 x week for dressing changes Problem List - Problems (1) Diabetic leg 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 Code(s): E10.622 - TYPE 1 DIABETES MELLITUS WITH OTHER SKIN ULCER; L97.909 - NON-PRS CHRONIC ULC UNSP PRT OF UNSP LOW LEG W UNSP SEVERITY (2) Venous stasis Code(s): I87.8 - OTHER SPECIFIED DISORDERS OF VEINS (3) Insulin dependent diabetes mellitus Code(s): E11.9 - TYPE 2 DIABETES MELLITUS WITHOUT COMPLICATIONS; Z79.4 - CARE HOME (CURRENT) USE OF INSULIN (4) MRSA (methicillin resistant Staphylococcus aureus) infection Code(s): A49.02 - METHICILLIN RESIS STAPH INFECTION, UNSP SITE (5) Morbid obesity Code(s): E66.01 - MORBID (SEVERE) OBESITY DUE TO EXCESS CALORIES (6) Non-healing wound of lower extremity Code(s): S81.809A - UNSPECIFIED OPEN WOUND, UNSPECIFIED LOWER LEG, INIT ENCNTR
[2020-01-11] MEDS: ACETAMINOPHEN 325 MG TABLET (FP) PO PRN (16:54)
[2020-01-12] MEDS: oxyCODONE HCL 5 MG TABLET PO PRN ×3 (01:34→19:44)
[2020-01-12] MEDS: INSULIN (NOVOLOG MIX 70/30) 100 UNITS/ML MDV SQ SCH ×2 (06:21→17:05)
[2020-01-12] MEDS: GABAPENTIN 300 MG CAPSULE PO SCH ×3 (06:21→22:35)
[2020-01-12] MEDS: FUROSEMIDE 40 MG TABLET (FP) PO SCH ×2 (06:21→13:27)
[2020-01-12] MEDS: INSULIN SLIDING SCALE (NOVOLOG) 1 VIAL SQ SCH ×3 (06:21→17:27)
[2020-01-12] MEDS: metFORMIN HCL 500 MG TABLET (FP) PO SCH ×2 (06:21→17:08)
[2020-01-12] MEDS: LIRAGLUTIDE 0.6 MG/0.1 ML PEN.INJCTR SQ SCH (06:22)
[2020-01-12] MEDS ORDERED: DEXTROSE 5%-WATER - 50 ML IVPB ONE (09:35)
[2020-01-12] MEDS ORDERED: cefTRIAXone SODIUM 1 GM VIAL ONE (09:35)
[2020-01-12] MEDS: OMEGA-3 ACID ETHYL ESTERS (FATTY-ACIDS) 1 GM CAPSULE (FP) PO SCH (09:46)
[2020-01-12] MEDS: MAGNESIUM OXIDE 400 MG TABLET (FP) PO SCH (09:46)
[2020-01-12] MEDS: CEFTRIAXONE 1 GM in DEXTROSE 5%-WATER - 50 ML IVPB SCH (09:46)
[2020-01-12] MEDS: MULTIVITAMINS (DAILY MVI) TABLET (FP) PO SCH (09:48)
[2020-01-12] MEDS: ENOXAPARIN NA (PORCINE) 40 MG/0.4 ML DISP.SYRIN SQ SCH (09:48)
--- NOTE | 2020-01-12 10:25 | PN ---
Progress Note, Physician History of Present Illness: stable no new issues - Current Medication List Current Medications: Active Medications Acetaminophen (Tylenol -) 650 mg PO Q4H PRN PRN Reason: PAIN LEVEL 1-3 Last Admin: 01/11/20 16:54 Dose: 650 mg Documented by: Enoxaparin Sodium (Lovenox -) 40 mg SQ DAILY [facility] Last Admin: 01/12/20 09:48 Dose: 40 mg Documented by: Furosemide (Lasix -) 40 mg PO BIDLASIX [facility] Last Admin: 01/12/20 06:21 Dose: Not Given Documented by: Gabapentin (Neurontin -) 300 mg PO TID [facility] Last Admin: 01/12/20 06:21 Dose: 300 mg Documented by: Ceftriaxone Sodium 1 gm/ (Dextrose) 50 mls @ 100 mls/hr IVPB DAILY [facility]; Protocol Last Admin: 01/12/20 09:46 Dose: 100 mls/hr Documented by: Vancomycin HCl 1,250 mg/ (Dextrose) 250 mls @ 125 mls/hr IVPB BID [facility]; Protocol Last Admin: 01/11/20 22:03 Dose: 125 mls/hr Documented by: Insulin Aspart (Novolog Mix 70/30 Vial) 50 units SQ BIDAC [facility] Last Admin: 01/12/20 06:21 Dose: Not Given Documented by: Insulin Aspart (Novolog Vial Sliding Scale -) 1 vial SQ TIDAC [facility]; Protocol Last Admin: 01/12/20 06:21 Dose: Not Given Documented by: Liraglutide (Victoza -) 1.8 mg SQ DAILY@0700 [facility] Last Admin: 01/12/20 06:22 Dose: Not Given Documented by: Magnesium Oxide (Mag-Ox -) 400 mg PO DAILY [facility] Last Admin: 01/12/20 09:46 Dose: 400 mg Documented by: Metformin HCl (Glucophage -) 500 mg PO BIDI [facility] Last Admin: 01/12/20 06:21 Dose: 500 mg Documented by: Multivitamins/Minerals/Vitamin C (Tab-A-Vit -) 1 tab PO DAILY [facility] Last Admin: 01/12/20 09:48 Dose: 1 tab Documented by: [id number] Ethyl Esters (Lovaza -) 1 gm PO DAILY [facility] Last Admin: 01/12/20 09:46 Dose: 1 gm Documented by: Ondansetron HCl (Zofran Injection) 4 mg IVPUSH Q6H PRN PRN Reason: NAUSEA AND/OR VOMITING Oxycodone HCl (Roxicodone -) 5 mg PO Q4H PRN PRN Reason: PAIN LEVEL 4-6 Oxycodone HCl (Roxicodone -) 10 mg PO Q4H PRN PRN Reason: PAIN LEVEL 7 - 10 Last Admin: 01/12/20 01:34 Dose: 10 mg Documented by: Promethazine HCl (Phenergan Injection -) 12.5 mg IVPUSH Q6H PRN PRN Reason: NAUSEA-FOR RESCUE AFTER 15 MIN - Objective Vital Signs: Vital Signs Temperature 98.4 F 01/12/20 06:00 Pulse Rate 59 L 01/12/20 06:00 Respiratory Rate 18 01/12/20 06:00 Blood Pressure 109/61 01/12/20 06:00 O2 Sat by Pulse Oximetry (%) 96 01/12/20 06:00 Constitutional: Yes: No Distress, Calm, Obese Cardiovascular: Yes: S1, S2 Respiratory: Yes: Regular, CTA Bilaterally Gastrointestinal: Yes: Normal Bowel Sounds, Soft Musculoskeletal: Yes: WNL Extremities: Yes: Other Wound/Incision: Yes: Other (wound vac in place) Psychiatric: Yes: Alert, Oriented Labs: CBC, BMP 01/11/20 07:25 01/11/20 07:25 INR, PTT INR 1.00 (0.83-1.09) 01/05/20 14:45 Assessment/Plan Problem List - Problems (1) MRSA (methicillin resistant Staphylococcus aureus) infection Problems reviewed: Yes Code(s): A49.02 - METHICILLIN RESIS STAPH INFECTION, UNSP SITE (2) Diabetic leg 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 Problems reviewed: Yes Code(s): E10.622 - TYPE 1 DIABETES MELLITUS WITH OTHER SKIN ULCER; L97.909 - NON-PRS CHRONIC ULC UNSP PRT OF UNSP LOW LEG W UNSP SEVERITY (3) Non-healing wound of lower extremity Problems reviewed: Yes Code(s): S81.809A - UNSPECIFIED OPEN WOUND, UNSPECIFIED LOWER LEG, INIT ENCNTR Qualifiers: Encounter type: initial encounter Laterality: right Qualified Code(s): S81.801A - Unspecified open wound, right lower leg, initial encounter (4) Morbid obesity Problems reviewed: Yes Code(s): E66.01 - MORBID (SEVERE) OBESITY DUE TO EXCESS CALORIES plan continue abx will check vanc trough
[2020-01-12] MEDS: VANCOMYCIN HCL 1,250 MG in DEXTROSE 5%-WATER - 250 ML IVPB SCH ×2 (10:50→22:35)
[2020-01-12] MEDS ORDERED: INSULIN (NOVOLOG) ASPART 100 UNITS/ML 10ML VIAL ONE (12:09)
--- NOTE | 2020-01-12 12:13 | PN ---
Progress Note, Physician History of Present Illness: Awake/ Comfortable no complains feels well All f/u noted - Current Medication List Current Medications: Active Medications Acetaminophen (Tylenol -) 650 mg PO Q4H PRN PRN Reason: PAIN LEVEL 1-3 Last Admin: 01/11/20 16:54 Dose: 650 mg Documented by: Enoxaparin Sodium (Lovenox -) 40 mg SQ DAILY [facility] Last Admin: 01/12/20 09:48 Dose: 40 mg Documented by: Furosemide (Lasix -) 40 mg PO BIDLASIX [facility] Last Admin: 01/12/20 06:21 Dose: Not Given Documented by: Gabapentin (Neurontin -) 300 mg PO TID [facility] Last Admin: 01/12/20 06:21 Dose: 300 mg Documented by: Ceftriaxone Sodium 1 gm/ (Dextrose) 50 mls @ 100 mls/hr IVPB DAILY [facility]; Pro tocol Last Admin: 01/12/20 09:46 Dose: 100 mls/hr Documented by: Vancomycin HCl 1,250 mg/ (Dextrose) 250 mls @ 125 mls/hr IVPB BID [facility]; Protocol Last Admin: 01/12/20 10:50 Dose: 125 mls/hr Documented by: Insulin Aspart (Novolog Mix 70/30 Vial) 50 units SQ BIDAC [facility] Last Admin: 01/12/20 06:21 Dose: Not Given Documented by: Insulin Aspart (Novolog Vial Sliding Scale -) 1 vial SQ TIDAC [facility]; Protocol Last Admin: 01/12/20 10:51 Dose: 3 units Documented by: Liraglutide (Victoza -) 1.8 mg SQ DAILY@0700 [facility] Last Admin: 01/12/20 06:22 Dose: Not Given Documented by: Magnesium Oxide (Mag-Ox -) 400 mg PO DAILY [facility] Last Admin: 01/12/20 09:46 Dose: 400 mg Documented by: Metformin HCl (Glucophage -) 500 mg PO BIDI [facility] Last Admin: 01/12/20 06:21 Dose: 500 mg Documented by: Multivitamins/Minerals/Vitamin C (Tab-A-Vit -) 1 tab PO DAILY [facility] Last Admin: 01/12/20 09:48 Dose: 1 tab Documented by: [id number] Ethyl Esters (Lovaza -) 1 gm PO DAILY [facility] Last Admin: 01/12/20 09:46 Dose: 1 gm Documented by: Ondansetron HCl (Zofran Injection) 4 mg IVPUSH Q6H PRN PRN Reason: NAUSEA AND/OR VOMITING Oxycodone HCl (Roxicodone -) 5 mg PO Q4H PRN PRN Reason: PAIN LEVEL 4-6 Oxycodone HCl (Roxicodone -) 10 mg PO Q4H PRN PRN Reason: PAIN LEVEL 7 - 10 Last Admin: 01/12/20 01:34 Dose: 10 mg Documented by: Promethazine HCl (Phenergan Injection -) 12.5 mg IVPUSH Q6H PRN PRN Reason: NAUSEA-FOR RESCUE AFTER 15 MIN - Objective Vital Signs: Vital Signs Temperature 98.4 F 01/12/20 10:00 Pulse Rate 86 01/12/20 10:00 Respiratory Rate 18 01/12/20 10:00 Blood Pressure 123/62 01/12/20 10:00 O2 Sat by Pulse Oximetry (%) 98 01/12/20 10:00 Constitutional: Yes: No Distress, Calm, Obese Eyes: Yes: Conjunctiva Clear Neck: Yes: Supple Cardiovascular: Yes: Regular Rate and Rhythm Respiratory: Yes: Diminished Gastrointestinal: Yes: Soft Edema: No Wound/Incision: Yes: Other (vac - in place) Neurological: Yes: Alert Labs: CBC, BMP 01/11/20 07:25 01/11/20 07:25 INR, PTT INR 1.00 (0.83-1.09) 01/05/20 14:45 Problem List - Problems (1) Diabetic leg 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 Code(s): E10.622 - TYPE 1 DIABETES MELLITUS WITH OTHER SKIN ULCER; L97.909 - NON-PRS CHRONIC ULC UNSP PRT OF UNSP LOW LEG W UNSP SEVERITY (2) Insulin dependent diabetes mellitus Code(s): E11.9 - TYPE 2 DIABETES MELLITUS WITHOUT COMPLICATIONS; Z79.4 - CARE HOME (CURRENT) USE OF INSULIN (3) MRSA (methicillin resistant Staphylococcus aureus) infection Code(s): A49.02 - METHICILLIN RESIS STAPH INFECTION, UNSP SITE (4) Morbid obesity Code(s): E66.01 - MORBID (SEVERE) OBESITY DUE TO EXCESS CALORIES (5) Non-healing wound of lower extremity Code(s): S81.809A - UNSPECIFIED OPEN WOUND, UNSPECIFIED LOWER LEG, INIT ENCNTR Assessment/Plan Stable Abx per i/d local care Monitor bgm dvt prophylaxis d/w RN and Dr. Crump also Awaiting Wound vac Can be switched to zyvox per i/d Anticipate d/c tomorrow VNS will continue to follow
[2020-01-12] MEDS ORDERED: PT OWN MED DRAWER 7, Y5N ONE (22:22)
[2020-01-13] MEDS: oxyCODONE HCL 5 MG TABLET PO PRN (02:55)
[2020-01-13] MEDS: FUROSEMIDE 40 MG TABLET (FP) PO SCH (06:03)
[2020-01-13] MEDS: INSULIN (NOVOLOG MIX 70/30) 100 UNITS/ML MDV SQ SCH (06:06)
[2020-01-13] MEDS: LIRAGLUTIDE 0.6 MG/0.1 ML PEN.INJCTR SQ SCH (06:07)
[2020-01-13] MEDS: INSULIN SLIDING SCALE (NOVOLOG) 1 VIAL SQ SCH ×2 (06:07→11:58)
[2020-01-13] MEDS: metFORMIN HCL 500 MG TABLET (FP) PO SCH (06:08)
[2020-01-13] MEDS: GABAPENTIN 300 MG CAPSULE PO SCH (06:09)
[2020-01-13] MEDS ORDERED: DEXTROSE 5%-WATER - 50 ML IVPB ONE (09:23)
[2020-01-13] MEDS ORDERED: PT OWN MED DRAWER 7, Y5N ONE (09:23)
[2020-01-13] MEDS ORDERED: cefTRIAXone SODIUM 1 GM VIAL ONE (09:23)
[2020-01-13] MEDS: OMEGA-3 ACID ETHYL ESTERS (FATTY-ACIDS) 1 GM CAPSULE (FP) PO SCH (09:40)
[2020-01-13] MEDS: ENOXAPARIN NA (PORCINE) 40 MG/0.4 ML DISP.SYRIN SQ SCH (09:41)
[2020-01-13] MEDS: CEFTRIAXONE 1 GM in DEXTROSE 5%-WATER - 50 ML IVPB SCH (09:41)
[2020-01-13] MEDS: MULTIVITAMINS (DAILY MVI) TABLET (FP) PO SCH (09:41)
[2020-01-13] MEDS: MAGNESIUM OXIDE 400 MG TABLET (FP) PO SCH (09:41)
[2020-01-13] MEDS: ACETAMINOPHEN 325 MG TABLET (FP) PO PRN (09:43)
--- NOTE | 2020-01-13 11:25 | PN ---
Progress Note, Physician History of Present Illness: stable no new issues - Current Medication List Current Medications: Active Medications Acetaminophen (Tylenol -) 650 mg PO Q4H PRN PRN Reason: PAIN LEVEL 1-3 Last Admin: 01/13/20 09:43 Dose: 650 mg Documented by: Enoxaparin Sodium (Lovenox -) 40 mg SQ DAILY [facility] Last Admin: 01/13/20 09:41 Dose: 40 mg Documented by: Furosemide (Lasix -) 40 mg PO BIDLASIX [facility] Last Admin: 01/13/20 06:03 Dose: Not Given Documented by: Gabapentin (Neurontin -) 300 mg PO TID [facility] Last Admin: 01/13/20 06:09 Dose: 300 mg Documented by: Ceftriaxone Sodium 1 gm/ (Dextrose) 50 mls @ 100 mls/hr IVPB DAILY [facility]; Protocol Last Admin: 01/13/20 09:41 Dose: 100 mls/hr Documented by: Vancomycin HCl 1,250 mg/ (Dextrose) 250 mls @ 125 mls/hr IVPB BID [facility]; Protocol Last Admin: 01/12/20 22:35 Dose: 125 mls/hr Documented by: Insulin Aspart (Novolog Mix 70/30 Vial) 50 units SQ BIDAC [facility] Last Admin: 01/13/20 06:06 Dose: Not Given Documented by: Insulin Aspart (Novolog Vial Sliding Scale -) 1 vial SQ TIDAC [facility]; Protocol Last Admin: 01/13/20 06:07 Dose: Not Given Documented by: Liraglutide (Victoza -) 1.8 mg SQ DAILY@0700 [facility] Last Admin: 01/13/20 06:07 Dose: Not Given Documented by: Magnesium Oxide (Mag-Ox -) 400 mg PO DAILY [facility] Last Admin: 01/13/20 09:41 Dose: 400 mg Documented by: Metformin HCl (Glucophage -) 500 mg PO BIDI [facility] Last Admin: 01/13/20 06:08 Dose: 500 mg Documented by: Multivitamins/Minerals/Vitamin C (Tab-A-Vit -) 1 tab PO DAILY [facility] Last Admin: 01/13/20 09:41 Dose: 1 tab Documented by: [id number]-Xtsu Ethyl Esters (Lovaza -) 1 gm PO DAILY [facility] Last Admin: 01/13/20 09:40 Dose: 1 gm Documented by: Ondansetron HCl (Zofran Injection) 4 mg IVPUSH Q6H PRN PRN Reason: NAUSEA AND/OR VOMITING Promethazine HCl (Phenergan Injection -) 12.5 mg IVPUSH Q6H PRN PRN Reason: NAUSEA-FOR RESCUE AFTER 15 MIN - Objective Vital Signs: Vital Signs Temperature 97.9 F 01/13/20 05:50 Pulse Rate 64 01/13/20 05:50 Respiratory Rate 18 01/13/20 05:50 Blood Pressure 136/72 01/13/20 05:50 O2 Sat by Pulse Oximetry (%) 95 01/13/20 05:50 Constitutional: Yes: No Distress, Calm Cardiovascular: Yes: S1, S2 Respiratory: Yes: Regular, CTA Bilaterally Gastrointestinal: Yes: Normal Bowel Sounds, Soft Musculoskeletal: Yes: WNL Extremities: Yes: Other Wound/Incision: Yes: Other (wound vac in place) Neurological: Yes: Alert, Oriented Labs: CBC, BMP 01/11/20 07:25 01/11/20 07:25 INR, PTT INR 1.00 (0.83-1.09) 01/05/20 14:45 Assessment/Plan Problem List - Problems (1) MRSA (methicillin resistant Staphylococcus aureus) infection Problems reviewed: Yes Code(s): A49.02 - METHICILLIN RESIS STAPH INFECTION, UNSP SITE (2) Diabetic leg 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 Problems reviewed: Yes Code(s): E10.622 - TYPE 1 DIABETES MELLITUS WITH OTHER SKIN ULCER; L97.909 - NON-PRS CHRONIC ULC UNSP PRT OF UNSP LOW LEG W UNSP SEVERITY (3) Non-healing wound of lower extremity Problems reviewed: Yes Code(s): S81.809A - UNSPECIFIED OPEN WOUND, UNSPECIFIED LOWER LEG, INIT ENCNTR Qualifiers: Encounter type: initial encounter Laterality: right Qualified Code(s): S81.801A - Unspecified open wound, right lower leg, initial encounter (4) Morbid obesity Problems reviewed: Yes Code(s): E66.01 - MORBID (SEVERE) OBESITY DUE TO EXCESS CALORIES plan continue abx vanco trough noted when ready to discharge will switch to oral
[2020-01-13] MEDS: VANCOMYCIN HCL 1,250 MG in DEXTROSE 5%-WATER - 250 ML IVPB SCH (11:57)
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
[2020-01-13 15:24] VITALS: BP 133/85; PULSE 80; TEMP 98.6
== END 2020-01-13 18:18 | disposition home or self-care (01) | DRG 623 ==
LOC: JER 12:47 → JERBED 16:55 → J6S 18:51
PROVIDERS: ADMIT Internal Medicine; ATTEND Internal Medicine
PROC: 2W0LX6Z Change Pressure Dressing on Right Lower Extremity (ICD-10-PCS; 2020-01-08)
PROC: 0JBN0ZZ Excision of Right Lower Leg Subcutaneous Tissue and Fascia, Open Approach (ICD-10-PCS; principal; 2020-01-08 15:00)
DX: E11.622 Type 2 diabetes mellitus with other skin ulcer (principal); L97.818 Non-pressure chronic ulcer of other part of right lower leg with other specified severity; Z68.45 Body mass index [BMI] 70 or greater, adult; E78.5 Hyperlipidemia, unspecified; E66.01 Morbid (severe) obesity due to excess calories; M17.0 Bilateral primary osteoarthritis of knee; J45.909 Unspecified asthma, uncomplicated; I87.8 Other specified disorders of veins; Z79.4 Long term (current) use of insulin; Z86.14 Personal history of Methicillin resistant Staphylococcus aureus infection
CPT/HCPCS: 36415; 71045-TC-FY; 73590-TC-RT-FY; 73610-TC-RT-FY; 73630-TC-RT-FY; 80048; 80053; 80061; 82962; 83036; 83721; 84443; 85025; 85027; 85610; 85651; 85730; 86140; 86850; 86900; 86901; 87040; 88304-TC; 93005; 93010; 94760; 99285-25; G0463-25; G0480; U0003

== ENCOUNTER 2020-02-23 16:10 | Inpatient (IN) | payer OTHER ==
--- NOTE | 2020-02-23 16:36 | PDOC ---
History of Present Illness - General Chief Complaint: Wound Stated Complaint: OPEN WOUND Time Seen by Provider: 02/23/20 16:13 History Source: Patient Exam Limitations: No Limitations - History of Present Illness Initial Comments: 02/23/20 16:30 PCP: Dr. Velasco ID:m Dr. Crump Vascular: Dr. 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 Patient has has linezolid and vancomycin multiple times with recurrent wound infections. Since debridement, wound vac has been changed and patient has seen wound care at home 3 times per week for dressing changes. On review, sensitives severely limit antibiotic choice. Denies fevers, chills, nausea, vomiting, weakness, pain at the site, pain with ambulation, chest pain, SOB. Presented at the request of her wound care nurse due to concern for infection. Reports well-controlled blood sugar at home. All: Adhesive tape Meds: Per chart PMH: As above PSH: Per chart Past History - Travel History Traveled outside of the country in the last 30 days: No Close contact w/someone who was outside of country & ill: No - Medical History Allergies/Adverse Reactions: Allergies Allergy/AdvReac Type Severity Reaction Status Date / Time adhesive tape AdvReac Intermediate Hives Verified 02/23/20 17:42 Home Medications: Ambulatory Orders Gabapentin [Neurontin -] 300 mg PO TID 12/09/18 Insulin Lispro Protamin/Lispro [Humalog Mix 75-25 Kwikpen] 50 unit SQ BID 12/12/18 Magnesium Oxide [Magnesium] 400 mg PO ASDIR 12/12/18 [place]-3S/Dha/Epa/Fish Oil/D3 [[place]-3 + D Softgel] 1 each PO DAILY 12/12/18 Ibuprofen 800 mg PO TID PRN 05/19/19 Liraglutide [Victoza -] 1.8 mg SQ DAILY@0700 05/19/19 Acetaminophen [Tylenol .Regular Strength -] 650 mg PO Q4H PRN tablet 05/22/19 Insulin Sliding Scale [Novolog Vial Sliding Scale -] 1 vial SQ BIDAC units 05/22/19 Aspirin 81 mg PO DAILY 01/05/20 Atorvastatin Ca [Lipitor] 0 mg PO HS 01/05/20 Enalapril Maleate [Vasotec] 5 mg PO DAILY 01/05/20 Furosemide [Lasix -] 40 mg PO BID 01/05/20 Metformin HCl [Glucophage] 500 mg PO BID 01/05/20 Multivitamin 1 each PO DAILY 01/05/20 Linezolid 600 mg PO BID #14 tablet 01/13/20 oxyCODONE HCL [Roxicodone -] 10 mg PO Q12H PRN #15 tablet MDD 2 01/13/20 COPD: No Diabetes: Yes Hypercholesterolemia: Yes - Reproductive History Is Patient Now?: No - Immunization History Immunization Up to Date: Yes - Psycho-Social/Smoking History Smoking History: Never smoked Have you smoked in the past 12 months: No - Substance Abuse Hx (Audit-C & DAST Scrn) How often the patient has a drink containing alcohol: Never Score: In Men: 4 or > Positive; In Women: 3 or > Positive: 0 Screen Result (Pos requires Nsg. Audit-10AR): Negative Review of Systems - Review of Systems Able to Perform ROS?: Yes Is the patient limited Portuguese proficient: Yes Constitutional: No: Chills, Fever, Malaise, Night Sweats, Weakness HEENTM: No: Recent change in vision, Nose Congestion, Throat Pain Respiratory: No: Cough, Shortness of Breath Cardiac (ROS): No: Chest Pain, Edema, Chest Tightness ABD/GI: No: Nausea, Vomiting : No: Burning, Dysuria, Frequency Musculoskeletal: No: Muscle Pain, Muscle Weakness Integumentary: Yes: See HPI, Erythema, Lesions Neurological: No: Headache, Numbness, Tingling, Weakness Psychiatric: Yes: Stressors. No: Change in Appetite Endocrine: No: Increased Thirst, Increased Urine, Change in Weight Hematologic/Lymphatic: No: Anemia, Blood Clots, Easy Bleeding All Other Systems: Reviewed and Negative *Physical Exam - Vital Signs Last Vital Signs Temp Pulse Resp BP Pulse Ox 99.9 F H 77 20 153/55 L 99 02/23/20 16:12 02/23/20 16:12 02/23/20 16:12 02/23/20 16:12 02/23/20 16:12 - Physical Exam 02/23/20 16:37 Vitals reviewed, hypertensive, borderline fever with oral temp GEN: Morbidly obese, NAD, tearful. AAOx3. HEENT: NCAT, EOMI, PERRL. Sclera anicteric, non-injected. No facial asymmetry. Moist mucous membranes. CV: RRR, S1/S2, no murmurs / rubs / gallops appreciated. LUNG: CTABL, normal work of breathing. No wheezes, rales, rhonchi. No cough. Speaking full sentences. GI: Soft, obese, NTND, +BS, no guarding, no rebound. No masses. EXTREMITIES: 2+ distal pulses. No clubbing / cyanosis / edema. No gross def ormity in any extremity. SKIN: Warm, dry, no rashes appreciated, non-jaundiced. Large ulceration with erythematous and yellow base 4-5cm diameter with surrounding erythema and mild warmth on lateral right reis. No crepitus, minimal surrounding edema. PSYCH: Normal mood and affect - intermittently tearful. Cooperative and appropriate. NEURO: CN grossly intact. Moving all extremities well. Normal strength and sensation grossly. 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 History notable for prior cultures with broad resistance, multiple rounds of broad spectrum antibiotics, deep debridement, reassuring for absence of constitutional symptoms. Exam notable for hypertension, low-grade fever, wound as described above with purulence. Concerning for infection, less likely deep infection given appearance, absence of crepitus or pain, will obtain cultures to r/o early bacteremia - less likely given exam. - CBC, CMP, ESR, CRP - BCx, Wound culture - Clindamycin 900mg IV Dispo anticipated admission given resistance pattern and need for IV abx 02/23/20 18:37 Labs notable for elevated inflammatory markers CRP 1.4 Mild Leukocytosis Microblog sent Discharge - Discharge Information Problems reviewed: Yes Clinical Impression/Diagnosis: Non-healing wound of lower extremity Qualifiers: Encounter type: subsequent encounter Laterality: right Qualified Code(s): S81.801D - Unspecified open wound, right lower leg, subsequent encounter Condition: Guarded - Admission Yes - Follow up/Referral - Patient Discharge Instructions - Post Discharge Activity
[2020-02-23] MEDS ORDERED: CLINDAMYCIN 900 MG PREMIX IVPB 900 MG/50 ML BAG IVPB ONE ×2 (16:43→17:21)
--- NOTE | 2020-02-23 16:49 | PDOC ---
Documentation entered by [employer] SCRIBE, acting as scribe for Philipp Motley MD. Philipp Motley MD: This documentation has been prepared by the jennyibMert alvarado Ana, SCRIBE, under my direction and personally reviewed by me in its entirety. I confirm that the documentation accurately reflects all work, treatment, procedures, and medical decision making performed by me. Attending Attestation - Resident Resident Name: Fritz Sanchez - ED Attending Attestation I have performed the following: I have examined & evaluated the patient, The case was reviewed & discussed with the resident, I agree w/resident's findings & plan, Exceptions are as noted - HPI HPI: 02/23/20 16:39 Patient is a 60 year old morbidly obese female with a significant past medical history of hypertension, hyperlipidemia, diabetes, and chronic vascular wound - multiple infections with MRSA, multiple rounds of abx, and deep wound debridement, who presents to the ED with worsening yellow drainage from wound x2 days. Patient denies: weakness, fever, chills, nausea, vomiting, SOB, chest pain, any pain, or any other related symptoms - Physicial Exam PE: 02/23/20 16:47 See resident exam. - Medical Decision Making 02/23/20 16:49 60 F with worsening chronic RLE wound. - Labs, cultures - IV abx Discharge - Discharge Information Problems reviewed: Yes Clinical Impression/Diagnosis: Non-healing wound of lower extremity Qualifiers: Encounter type: subsequent encounter Laterality: right Qualified Code(s): S81.801D - Unspecified open wound, right lower leg, subsequent encounter Condition: Guarded - Follow up/Referral - Patient Discharge Instructions - Post Discharge Activity
[2020-02-23] MEDS ORDERED: ACETAMINOPHEN 1000 MG/100 ML VIAL (NON FORMULARY) IVPB ONE (17:03)
[2020-02-23] MEDS ORDERED: ACETAMINOPHEN INJECTION 100 ML IVPB ONE (17:21)
[2020-02-23 17:43] LABS: BASO % 0.6 % (0-2.0); EOS % 1.2 % (0-4.5); HEMATOCRIT 43.1 % (32.4-45.2); HEMOGLOBIN 14.3 GM/dL (10.7-15.3); LYMPH % 14.6 % (8-40); MCHC 33.1 g/dl (32.0-36.0); MEAN CELL VOLUME 90.5 fl (80-96); MEAN PLT VOLUME 8.8 fl (7.5-11.1); MONO % 6.6 % (3.8-10.2); PLATELET COUNT 290 K/MM3 (134-434); RBC 4.76 M/mm3 (3.60-5.2); RDW 13.8 % (11.6-15.6); WHITE BLOOD COUNT 10.9 K/mm3 (4.0-10.0)
[2020-02-23 18:28] LABS: BILIRUBIN,TOTAL 0.6 mg/dL (0.2-1); BLOOD UREA NITROGEN 17.4 mg/dL (7-18); CREATININE 0.7 mg/dL (0.55-1.3)
[2020-02-23 18:29] LABS: ALBUMIN 3.5 g/dl (3.4-5.0); CALCIUM 8.7 mg/dL (8.5-10.1); POTASSIUM 4.1 mmol/L (3.5-5.1)
[2020-02-23 18:33] LABS: ERYTHROCYTE SEDIMENTATION RATE 11 mm/hr (0-30)
[2020-02-23] MEDS ORDERED: oxyCODONE HCL 5 MG TABLET PO PRN (20:00)
--- NOTE | 2020-02-23 20:06 | HP ---
CHIEF COMPLAINT: reports having drainage and odor to chronic RLE open wound PCP:Dr. Jermaine Velasco Vascular: Dr. Becerril Infectious Disease: Dr. Gupta HISTORY OF PRESENT ILLNESS: 60 year old morbid obese female with a past medical history of hypertension, hyperlipidemia, diabetes mellitus type II (hgba1c 6.7), and chronic vascular wound on right lower extremity with multiple infections with MRSA, multiple rounds of IV antibiotics, s/p deep wound debridement in January 2020 who presented with 2 days of worsening yellow drainage from her wound. History notable from prior cultures with broad resistance, multiple rounds of broad spectrum IV antibiotics, and deep debridement. On clinical exam in the ER she was found to have hypertension and a low grade fever,and right lower extremity open wound had purulence concerning for infection, less likely deep infection given appearance. Labs notable for elevated inflammatory markers CRP 1.4, ESR normal WBC 10.9 She received a dose of IV clindamycin 900 mg once. Recent Travel: no PAST MEDICAL HISTORY: hypertension hyperlipidemia diabetes mellitus type II chronic vascular wound on RLE PAST SURGICAL HISTORY: debridement of right lower extremity wound Social History: Smoking:no Alcohol:no Drugs: yes, smokes marijuana, last used yesterday Family History: noncontributory Allergies adhesive tape Adverse Reaction (Intermediate, Verified 02/23/20 17:42) Hives HOME MEDICATIONS: Home Medications Medication Instructions Recorded Gabapentin [Neurontin -] 300 mg PO TID 12/09/18 Insulin Lispro Protamin/Lispro 50 unit SQ BID 12/12/18 [Humalog Mix 75-25 Kwikpen] Magnesium Oxide [Magnesium] 400 mg PO ASDIR 12/12/18 [place]-3S/Dha/Epa/Fish Oil/D3 1 each PO DAILY 12/12/18 [[place]-3 + D Softgel] Ibuprofen 800 mg PO TID PRN 05/19/19 Liraglutide [Victoza -] 1.8 mg SQ DAILY@0700 05/19/19 Acetaminophen [Tylenol .Regular 650 mg PO Q4H PRN tablet 05/22/19 Strength -] Insulin Sliding Scale [Novolog 1 vial SQ BIDAC units 05/22/19 Vial Sliding Scale -] Aspirin 81 mg PO DAILY 01/05/20 Atorvastatin Ca [Lipitor] 0 mg PO HS 01/05/20 Enalapril Maleate [Vasotec] 5 mg PO DAILY 01/05/20 Furosemide [Lasix -] 40 mg PO BID 01/05/20 Metformin HCl [Glucophage] 500 mg PO BID 01/05/20 Multivitamin 1 each PO DAILY 01/05/20 Linezolid 600 mg PO BID #14 tablet 01/13/20 oxyCODONE HCL [Roxicodone -] 10 mg PO Q12H PRN #15 tablet MDD 2 01/13/20 REVIEW OF SYSTEMS CONSTITUTIONAL: Absent: low grade temperature, chills, diaphoresis, generalized weakness, malaise, loss of appetite, weight change HEENT: Absent: rhinorrhea, nasal congestion, throat pain, throat swelling, difficulty swallowing, mouth swelling, ear pain, eye pain, visual changes CARDIOVASCULAR: Absent: chest pain, syncope, palpitations, irregular heart rate, lightheadedness, peripheral edema RESPIRATORY: Absent: cough, shortness of breath, dyspnea with exertion, orthopnea, wheezing, stridor, hemoptysis GASTROINTESTINAL: Absent: abdominal pain, abdominal distension, nausea, vomiting, diarrhea, constipation, melena, hematochezia GENITOURINARY: Absent: dysuria, frequency, urgency, hesitancy, hematuria, flank pain, genital pain MUSCULOSKELETAL: Absent: myalgia, arthralgia, joint swelling, back pain, neck pain SKIN: Absent: rash, itching, pallor, RLE open wound w/ yellowish drainage and odor HEMATOLOGIC/IMMUNOLOGIC: Absent: easy bleeding, easy bruising, lymphadenopathy, frequent infections ENDOCRINE: Absent: unexplained weight gain, unexplained weight loss, heat intolerance, cold intolerance NEUROLOGIC: Absent: headache, focal weakness or paresthesias, dizziness, unsteady gait, seizure, mental status changes, bladder or bowel incontinence PSYCHIATRIC: Absent: anxiety, depression, suicidal or homicidal ideation, hallucinations. PHYSICAL EXAMINATION Vital Signs - 24 hr 02/23/20 16:12 Temperature 99.9 F H Pulse Rate 77 Respiratory 20 Rate Blood Pressure 153/55 L O2 Sat by Pulse 99 Oximetry (%) General no acute distress Vital signs reviewed blood pressure and temperature noted Neuro no focal deficits Lungs CTA nonlabored breathing effort no use of accessory muscles Heart s1s2 rate regular Abdomen large soft nontender Extremities warm to touch RLE with erythema and open wound present, + tenderness Skin nail beds and lips pink Mood calm Laboratory Results - last 24 hr 02/23/20 02/23/20 16:40 16:40 WBC 10.9 H RBC 4.76 Hgb 14.3 Hct 43.1 MCV 90.5 MCH 30.0 MCHC 33.1 RDW 13.8 Plt Count 290 MPV 8.8 Absolute Neuts (auto) 8.4 H Neutrophils % 77.0 D Lymphocytes % 14.6 D Monocytes % 6.6 Eosinophils % 1.2 Basophils % 0.6 Nucleated RBC % 0 ESR 11 Sodium 142 Potassium 4.1 Chloride 108 H Carbon Dioxide 29 Anion Gap 5 L BUN 17.4 Creatinine 0.7 Est GFR (CKD-EPI)AfAm 109.91 Est GFR (CKD-EPI)NonAf 94.84 Random Glucose 116 H Calcium 8.7 Total Bilirubin 0.6 AST 20 ALT 27 Alkaline Phosphatase 79 C-Reactive Protein 1.4 H Total Protein 7.0 Albumin 3.5 ASSESSMENT/PLAN: In summary, Mrs. Hill is a 60 year old morbid obese female with a past medical history of hypertension, hyperlipidemia, diabetes mellitus type II (hgba1c 6.7), and chronic vascular wound on right lower extremity with multiple infections with MRSA, multiple rounds of IV antibiotics, s/p deep wound debridement in January 2020 who presented with 2 days of worsening yellow drainage from her wound. She was found to have mild leukocytosis and an elevated CRP. She had a low grade temperature and wound had purulence concerning for infection. She is being admitted to Medicine for treatment of acute on chronic infected RLE open wound with IV antibiotics and evaluation by Vascular Surgery/Wound care and Infectious Diseases. 1. acute on chronic infection of right lower extremity open wound WBC 10.9, CRP 1.4 low grade temperature received 1 dose of IV clindamycin 900 mg c/w IV clindamycin 600mg q8hr as sensitive on prior wound culture wound and blood culture pending c/w oxycodone/acetaminophen 1 tab q6hr prn for pain will check right foot xray to exclude osteomyelitis Infectious Diseases- Dr. Gupta consulted Vascular/ Wound Care coonsulted- Dr. Becerril 2. hypertension SBP 150's c/w vasotec and lasix 3. diabetes mellitus (uncontrolled) last hgba1c 6.7 BGM before meals and at bedtime Novolin insulin as per sliding scale consider endocrinology consult c/w asa and statin therapy 4. hyperlidemia LFT's normal c/w statin therapy 5. Rule Out COVID low risk, no evidenc of hypoxia follow up on COVID results maintain strict isolation precautions for droplet and contact maintain oxygen saturation >90% FEN no IVF indicated monitor electrolytes daily and replete as needed ADA, low sodium,low fat diet dvt prophylaxis high risk lovenox 40 mg daily Family Medical History Family History: As Documented Visit type - Emergency Visit Emergency Visit: Yes Care time: The patient presented to the Emergency Department on the above date and was hospitalized for further evaluation of their emergent condition. - New Patient This patient is new to me today: Yes Date on this admission: 02/23/20 - Critical Care Critical Care patient: No
[2020-02-23] MEDS ORDERED: FUROSEMIDE 40 MG TABLET (FP) ONE (21:31)
[2020-02-23] MEDS ORDERED: ATORVASTATIN CA 40 MG TABLET (FP) ONE (21:32)
[2020-02-23] MEDS ORDERED: GABAPENTIN 100 MG CAPSULE ONE (21:32)
[2020-02-23] MEDS ORDERED: ENOXAPARIN NA (PORCINE) 40 MG/0.4 ML DISP.SYRIN SQ ONE (21:32)
[2020-02-23] MEDS: ENOXAPARIN NA (PORCINE) 40 MG/0.4 ML DISP.SYRIN SQ SCH (21:53)
[2020-02-23] MEDS: FUROSEMIDE 40 MG TABLET (FP) PO SCH (21:53)
[2020-02-23] MEDS: GABAPENTIN 300 MG CAPSULE PO SCH (21:59)
[2020-02-23] MEDS: ATORVASTATIN CA 20 MG TABLET (FP) PO SCH (21:59)
[2020-02-24 01:57] VITALS: BMI 70.4
[2020-02-24] MEDS: CLINDAMYCIN 600MG PREMIX IVPB 600 MG/50 ML BAG IVPB SCH ×2 (02:16→09:16)
[2020-02-24] MEDS: FUROSEMIDE 40 MG TABLET (FP) PO SCH ×2 (06:09→14:14)
[2020-02-24] MEDS: GABAPENTIN 300 MG CAPSULE PO SCH ×3 (06:09→22:28)
[2020-02-24] MEDS: INSULIN SLIDING SCALE (NOVOLOG) 1 VIAL SQ SCH ×2 (06:09→16:32)
[2020-02-24 08:38] LABS: HEMATOCRIT 38.6 % (32.4-45.2); MCH 30.5 pg (25.7-33.7); MCHC 33.7 g/dl (32.0-36.0); MEAN CELL VOLUME 90.5 fl (80-96); MEAN PLT VOLUME 8.3 fl (7.5-11.1); PLATELET COUNT 242 K/MM3 (134-434); RBC 4.27 M/mm3 (3.60-5.2); RDW 13.8 % (11.6-15.6); WHITE BLOOD COUNT 7.1 K/mm3 (4.0-10.0)
[2020-02-24 09:05] LABS: BLOOD UREA NITROGEN 16.7 mg/dL (7-18); CALCIUM 8.2 mg/dL (8.5-10.1); CREATININE 0.5 mg/dL (0.55-1.3); POTASSIUM 3.8 mmol/L (3.5-5.1)
[2020-02-24] MEDS: ASPIRIN 81 MG CHEWABLE TABLETS PO SCH (09:16)
[2020-02-24] MEDS: ENOXAPARIN NA (PORCINE) 40 MG/0.4 ML DISP.SYRIN SQ SCH (09:16)
[2020-02-24] MEDS: ENALAPRIL MALEATE 5 MG TABLET (FP) PO SCH (09:16)
--- NOTE | 2020-02-24 12:25 | PN ---
Progress Note (short form) - Note Progress Note: pt is tearful about the wound She had wound vac and wound was initially getting better but started having yellowish discharge and slough Vital Signs - 24 hr 02/23/20 02/24/20 02/24/20 16:12 00:40 06:00 Temperature 99.9 F H 97.9 F 98.5 F Pulse Rate 77 68 64 Respiratory 20 20 20 Rate Blood Pressure 153/55 L 153/83 147/75 O2 Sat by Pulse 99 97 96 Oximetry (%) 02/24/20 02/24/20 02/24/20 06:11 09:00 10:00 Temperature 97.7 F 98.1 F Pulse Rate 64 76 Respiratory 20 20 Rate Blood Pressure 131/66 153/78 O2 Sat by Pulse 97 97 97 Oximetry (%) Current Medications Generic Name Dose Route Start Last Admin Trade Name Freq PRN Reason Stop Dose Admin Acetaminophen 325 mg 02/23/20 20:00 Tylenol - PO 02/25/20 22:00 Q6H PRN PAIN LEVEL 7-10 Aspirin 81 mg 02/24/20 10:00 02/24/20 09:16 Asa - PO 81 mg DAILY CRISTINE Administration Atorvastatin Calcium 20 mg 02/23/20 22:00 02/23/20 21:59 Lipitor - PO 20 mg HS CRISTINE Administration Enalapril Maleate 5 mg 02/24/20 10:00 02/24/20 09:16 Vasotec - PO 5 mg DAILY CRISTINE Administration Enoxaparin Sodium 40 mg 02/23/20 19:30 02/24/20 09:16 Lovenox - SQ Not Given DAILY CRISTINE Furosemide 40 mg 02/23/20 20:00 02/24/20 06:09 Lasix - PO Not Given BIDLASIX CRISTINE Gabapentin 300 mg 02/23/20 22:00 02/24/20 06:09 Neurontin - PO 300 mg TID CRISTINE Administration Clindamycin Phosphate 600 mg in 50 mls @ 100 mls/hr 02/24/20 02:00 02/24/20 09:16 Cleocin 600 Mg Premix Ivpb - IVPB 100 mls/hr Q8H-IV CRISTINE Administration Protocol Insulin Aspart 1 vial 02/24/20 07:00 02/24/20 06:09 Novolog Vial Sliding Scale - SQ Not Given BIDAC CRISTINE Protocol Laboratory Results - last 24 hr 02/23/20 02/23/20 02/23/20 16:40 16:40 21:46 WBC 10.9 H RBC 4.76 Hgb 14.3 Hct 43.1 MCV 90.5 MCH 30.0 MCHC 33.1 RDW 13.8 Plt Count 290 MPV 8.8 Absolute Neuts (auto) 8.4 H Neutrophils % 77.0 D Lymphocytes % 14.6 D Monocytes % 6.6 Eosinophils % 1.2 Basophils % 0.6 Nucleated RBC % 0 ESR 11 Sodium 142 Potassium 4.1 Chloride 108 H Carbon Dioxide 29 Anion Gap 5 L BUN 17.4 Creatinine 0.7 Est GFR (CKD-EPI)AfAm 109.91 Est GFR (CKD-EPI)NonAf 94.84 POC Glucometer 93 Random Glucose 116 H Calcium 8.7 Total Bilirubin 0.6 AST 20 ALT 27 Alkaline Phosphatase 79 C-Reactive Protein 1.4 H Total Protein 7.0 Albumin 3.5 02/24/20 02/24/20 02/24/20 06:08 07:20 07:20 WBC 7.1 RBC 4.27 Hgb 13.0 Hct 38.6 MCV 90.5 MCH 30.5 MCHC 33.7 RDW 13.8 Plt Count 242 MPV 8.3 Absolute Neuts (auto) Neutrophils % Lymphocytes % Monocytes % Eosinophils % Basophils % Nucleated RBC % ESR Sodium 141 Potassium 3.8 Chloride 108 H Carbon Dioxide 30 Anion Gap 3 L BUN 16.7 Creatinine 0.5 L Est GFR (CKD-EPI)AfAm 122.78 Est GFR (CKD-EPI)NonAf 105.94 POC Glucometer 108 Random Glucose 113 H Calcium 8.2 L Total Bilirubin AST ALT Alkaline Phosphatase C-Reactive Protein Total Protein Albumin S 1S2 RRR Lungs decreased Abd- soft, NT edema+ right leg-- ulcer on reis -- surrounding erythema, slough present PLAN spoke witih ID continue with iv vanco wound care eval continue meds maintain DM control Problem List - Problems (1) Non-healing wound of lower extremity Code(s): S81.809A - UNSPECIFIED OPEN WOUND, UNSPECIFIED LOWER LEG, INIT ENCNTR Qualifiers: Encounter type: subsequent encounter Laterality: right Qualified Code(s): S81.801D - Unspecified open wound, right lower leg, subsequent encounter (2) Diabetic leg 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 Code(s): E10.622 - TYPE 1 DIABETES MELLITUS WITH OTHER SKIN ULCER; L97.909 - NO N-PRS CHRONIC ULC UNSP PRT OF UNSP LOW LEG W UNSP SEVERITY (3) MRSA (methicillin resistant Staphylococcus aureus) infection Code(s): A49.02 - METHICILLIN RESIS STAPH INFECTION, UNSP SITE (4) Morbid obesity Code(s): E66.01 - MORBID (SEVERE) OBESITY DUE TO EXCESS CALORIES
--- NOTE | 2020-02-24 13:15 | CON.ID ---
Consult Consult Specialty:: infectious diseases Referred by:: Trixie Reason for Consultation:: infected leg wound - History of Present Illness Chief Complaint: pain swelling cellulitis of the leg with drainage from the wound History of Present Illness: 60 year old morbid obese female with a past medical history of hypertension, hyperlipidemia, diabetes mellitus type II , and chronic vascular wound on right lower extremity with multiple infections with MRSA, multiple rounds of IV antibiotics, s/p deep wound debridement in January 2020 who presented with 2 days of worsening yellow drainage from her wound. History notable from prior cultures with broad resistance, multiple rounds of broad spectrum IV antibiotics, and deep debridement. 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) ...LMP: 01/15/19 ...: No Musculoskeletal: Yes: Osteoarthritis (knees) Endocrine: Yes: Diabetes Mellitus - Alcohol/Substance Use Hx Alcohol Use: No History of Substance Use: reports: Marijuana (smokes daily) - Smoking History Smoking history: Never smoked Have you smoked in the past 12 months: No - Social History ADL: Independent Home Medications - Allergies Allergies/Adverse Reactions: Allergies Allergy/AdvReac Type Severity Reaction Status Date / Time No Known Drug Allergies Allergy Verified 02/25/20 13:59 adhesive tape AdvReac Intermediate Hives Verified 02/23/20 17:42 - Home Medications Home Medications: Ambulatory Orders RX: Gabapentin [Neurontin -] 300 mg PO TID 12/09/18 RX: Insulin Lispro Protamin/Lispro [Humalog Mix 75-25 Kwikpen] 50 unit SQ BID 12/12/18 RX: Magnesium Oxide [Magnesium] 400 mg PO ASDIR 12/12/18 RX: [place]-3S/Dha/Epa/Fish Oil/D3 [[place]-3 + D Softgel] 1 each PO DAILY 12/12/18 RX: Ibuprofen 800 mg PO TID PRN 05/19/19 RX: Liraglutide [Victoza -] 1.8 mg SQ DAILY@0700 05/19/19 RX: Acetaminophen [Tylenol .Regular Strength -] 650 mg PO Q4H PRN tablet 05/22/19 RX: Insulin Sliding Scale [Novolog Vial Sliding Scale -] 1 vial SQ BIDAC units 05/22/19 RX: Aspirin 81 mg PO DAILY 01/05/20 RX: Atorvastatin Ca [Lipitor] 0 mg PO HS 01/05/20 RX: Enalapril Maleate [Vasotec] 5 mg PO DAILY 01/05/20 RX: Furosemide [Lasix -] 40 mg PO BID 01/05/20 RX: Metformin HCl [Glucophage] 500 mg PO BID 01/05/20 RX: Multivitamin 1 each PO DAILY 01/05/20 RX: Linezolid 600 mg PO BID #14 tablet 01/13/20 RX: oxyCODONE HCL [Roxicodone -] 10 mg PO Q12H PRN #15 tablet MDD 2 01/13/20 Review of Systems - Review of Systems Constitutional: reports: Fever Eyes: reports: No Symptoms HENT: reports: No Symptoms Neck: reports: No Symptoms Cardiovascular: reports: No Symptoms Respiratory: reports: No Symptoms Gastrointestinal: reports: No Symptoms Genitourinary: reports: No Symptoms Musculoskeletal: reports: Muscle Pain Integumentary: reports: Change in Color, Erythema, Wound Neurological: reports: No Symptoms Endocrine: reports: No Symptoms Hematology/Lymphatic: reports: No Symptoms Psychiatric: reports: No Symptoms Physical Exam Vital Signs: Vital Signs Temperature 98.1 F 02/24/20 10:00 Pulse Rate 76 02/24/20 10:00 Respiratory Rate 02/24/20 10:00 Blood Pressure 153/78 02/24/20 10:00 O2 Sat by Pulse Oximetry (%) 97 02/24/20 10:00 Constitutional: Yes: Calm, Mild Distress, Obese Eyes: Yes: Conjunctiva Clear HENT: Yes: Atraumatic, Normocephalic Neck: Yes: Supple, Trachea Midline Cardiovascular: Yes: Regular Rate and Rhythm Respiratory: Yes: Regular, CTA Bilaterally Gastrointestinal: Yes: Normal Bowel Sounds, Soft Musculoskeletal: Yes: Other Extremities: Yes: Erythema (rt lower ext) Wound/Incision: Yes: Draining, Other (wound with slough) Labs: CBC, BMP 02/24/20 07:20 02/24/20 07:20 Imaging - Results Chest X-ray: Report Reviewed, Image Reviewed Assessment/Plan Problem List - Problems (1) Non-healing wound of lower extremity Code(s): S81.809A - UNSPECIFIED OPEN WOUND, UNSPECIFIED LOWER LEG, INIT ENCNTR Qualifiers: Encounter type: subsequent encounter Laterality: right Qualified Code(s): S81.801D - Unspecified open wound, right lower leg, subsequent encounter (2) Diabetic leg 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 Code(s): E10.622 - TYPE 1 DIABETES MELLITUS WITH OTHER SKIN ULCER; L97.909 - NON-PRS CHRONIC ULC UNSP PRT OF UNSP LOW LEG W UNSP SEVERITY (3) MRSA (methicillin resistant Staphylococcus aureus) infection Code(s): A49.02 - METHICILLIN RESIS STAPH INFECTION, UNSP SITE (4) Morbid obesity Code(s): E66.01 - MORBID (SEVERE) OBESITY DUE TO EXCESS CALORIES plan will start patient on vanco rest as per the team wound care need to look at the patient
[2020-02-24] MEDS: VANCOMYCIN HCL 1,250 MG in DEXTROSE 5%-WATER - 250 ML IVPB SCH (14:14)
[2020-02-24] MEDS: oxyCODONE HCL 5 MG TABLET PO PRN (16:57)
[2020-02-24] MEDS: ACETAMINOPHEN 325 MG TABLET (FP) PO PRN (16:57)
[2020-02-24] MEDS: ATORVASTATIN CA 20 MG TABLET (FP) PO SCH (22:28)
[2020-02-25] MEDS: oxyCODONE HCL 5 MG TABLET PO PRN ×2 (00:42→14:53)
[2020-02-25] MEDS: ACETAMINOPHEN 325 MG TABLET (FP) PO PRN ×2 (00:43→14:54)
[2020-02-25] MEDS: FUROSEMIDE 40 MG TABLET (FP) PO SCH ×3 (05:31→14:50)
[2020-02-25] MEDS: GABAPENTIN 300 MG CAPSULE PO SCH ×3 (05:31→21:04)
[2020-02-25] MEDS: INSULIN SLIDING SCALE (NOVOLOG) 1 VIAL SQ SCH ×2 (06:34→16:44)
--- NOTE | 2020-02-25 08:06 | PN ---
Progress Note, Physician History of Present Illness: stable no new issues pain in the leg - Current Medication List Current Medications: Active Medications Acetaminophen (Tylenol -) 325 mg PO Q6H PRN PRN Reason: PAIN LEVEL 7-10 Stop: 02/25/20 22:00 Last Admin: 02/25/20 00:43 Dose: 325 mg Documented by: Aspirin (Asa -) 81 mg PO DAILY [facility] Last Admin: 02/24/20 09:16 Dose: 81 mg Documented by: Atorvastatin Calcium (Lipitor -) 20 mg PO HS [facility] Last Admin: 02/24/20 22:28 Dose: 20 mg Documented by: Enalapril Maleate (Vasotec -) 5 mg PO DAILY [facility] Last Admin: 02/24/20 09:16 Dose: 5 mg Documented by: Enoxaparin Sodium (Lovenox -) 40 mg SQ DAILY [facility] Last Admin: 02/24/20 09:16 Dose: Not Given Documented by: Furosemide (Lasix -) 40 mg PO BIDLASIX [facility] Last Admin: 02/25/20 05:31 Dose: Not Given Documented by: Gabapentin (Neurontin -) 300 mg PO TID [facility] Last Admin: 02/25/20 05:31 Dose: 300 mg Documented by: Vancomycin HCl 1,250 mg/ (Dextrose) 250 mls @ 250 mls/2 hr IVPB Q24H [facility]; Protocol Last Admin: 02/24/20 14:14 Dose: 250 mls/2 hr Documented by: Insulin Aspart (Novolog Vial Sliding Scale -) 1 vial SQ BIDAC [facility]; Protocol Last Admin: 02/25/20 06:34 Dose: Not Given Documented by: Oxycodone HCl (Roxicodone -) 5 mg PO Q6H PRN PRN Reason: PAIN LEVEL 5-10 Last Admin: 02/25/20 00:42 Dose: 5 mg Documented by: - Objective Vital Signs: Vital Signs Temperature 98.6 F 02/25/20 03:38 Pulse Rate 62 02/25/20 03:38 Respiratory Rate 20 02/25/20 03:38 Blood Pressure 144/66 02/25/20 03:38 O2 Sat by Pulse Oximetry (%) 97 02/25/20 03:38 Constitutional: Yes: No Distress, Calm, Obese Cardiovascular: Yes: S1, S2 Respiratory: Yes: Regular, CTA Bilaterally Gastrointestinal: Yes: Normal Bowel Sounds, Soft Musculoskeletal: Yes: WNL Extremities: Yes: Erythema, Other Neurological: Yes: Alert, Oriented Psychiatric: Yes: Alert, Oriented Labs: CBC, BMP 02/24/20 07:20 02/24/20 07:20 Assessment/Plan continue abx wound cx pending await for final results rest as per the team
[2020-02-25] MEDS: ASPIRIN 81 MG CHEWABLE TABLETS PO SCH (10:01)
[2020-02-25] MEDS: ENALAPRIL MALEATE 5 MG TABLET (FP) PO SCH (10:02)
[2020-02-25] MEDS: ENOXAPARIN NA (PORCINE) 40 MG/0.4 ML DISP.SYRIN SQ SCH (10:02)
--- NOTE | 2020-02-25 13:16 | PN ---
Progress Note (short form) - Note Progress Note: anxious Vital Signs - 24 hr 02/24/20 02/24/20 02/25/20 18:47 21:00 03:38 Temperature 97.9 F 98.6 F Pulse Rate 70 62 Respiratory 70 H 70 H 20 Rate Blood Pressure 119/72 144/66 O2 Sat by Pulse 97 97 97 Oximetry (%) 02/25/20 09:00 Temperature 98.4 F Pulse Rate 67 Respiratory 20 Rate Blood Pressure 132/72 O2 Sat by Pulse 98 Oximetry (%) Current Medications Generic Name Dose Route Start Last Admin Trade Name Freq PRN Reason Stop Dose Admin Acetaminophen 325 mg 02/23/20 20:00 02/25/20 00:43 Tylenol - PO 02/25/20 22:00 325 mg Q6H PRN Administration PAIN LEVEL 7-10 Aspirin 81 mg 02/24/20 10:00 02/25/20 10:01 Asa - PO 81 mg DAILY [facility] Administration Atorvastatin Calcium 20 mg 02/23/20 22:00 02/24/20 22:28 Lipitor - PO 20 mg HS [facility] Administration Collagenase 1 applic 02/25/20 13:15 Santyl - TP DAILY [facility] Protocol Enalapril Maleate 5 mg 02/24/20 10:00 02/25/20 10:02 Vasotec - PO 5 mg DAILY [facility] Administration Enoxaparin Sodium 40 mg 02/23/20 19:30 02/25/20 10:02 Lovenox - SQ 40 mg DAILY [facility] Administration Furosemide 40 mg 02/23/20 20:00 02/25/20 05:31 Lasix - PO Not Given BIDLASIX [facility] Gabapentin 300 mg 02/23/20 22:00 02/25/20 05:31 Neurontin - PO 300 mg TID [facility] Administration Vancomycin HCl 1,250 mg/ 250 mls @ 250 mls/2 hr 02/24/20 14:00 02/24/20 14:14 Dextrose IVPB 250 mls/2 hr Q24H [facility] Administration Protocol Insulin Aspart 1 vial 02/24/20 07:00 02/25/20 06:34 Novolog Vial Sliding Scale - SQ Not Given BIDAC [facility] Protocol Oxycodone HCl 5 mg 02/24/20 16:40 02/25/20 00:42 Roxicodone - PO 5 mg Q6H PRN Administration PAIN LEVEL 5-10 Laboratory Results - last 24 hr 02/24/20 02/24/20 02/25/20 06:48 16:22 05:29 POC Glucometer 120 130 COVID-19 (JAMES) Not detected S1 S2 RRR Lungs decreased Abd- soft, NT edema+ right leg-- ulcer+, slough present, slight decrease in redness of surrounding skin A/P IV antibiotics pain control repeat wound cultures santyl daily wound care eval DVT prophylaxis Problem List - Problems (1) Non-healing wound of lower extremity Code(s): S81.809A - UNSPECIFIED OPEN WOUND, UNSPECIFIED LOWER LEG, INIT ENCNTR Qualifiers: Encounter type: subsequent encounter Laterality: right Qualified Code(s): S81.801D - Unspecified open wound, right lower leg, subsequent encounter (2) Diabetic leg 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 Code(s): E10.622 - TYPE 1 DIABETES MELLITUS WITH OTHER SKIN ULCER; L97.909 - NON-PRS CHRONIC ULC UNSP PRT OF UNSP LOW LEG W UNSP SEVERITY (3) Insulin dependent diabetes mellitus Code(s): E11.9 - TYPE 2 DIABETES MELLITUS WITHOUT COMPLICATIONS; Z79.4 - CSW (CURRENT) USE OF INSULIN (4) Morbid obesity Code(s): E66.01 - MORBID (SEVERE) OBESITY DUE TO EXCESS CALORIES
[2020-02-25] MEDS ORDERED: PT OWN MED DRAWER 7, Y5N ONE (14:30)
[2020-02-25] MEDS: COLLAGENASE CLOSTRIDIUM HIST. 30 GRAMS TUBE TP SCH (14:37)
[2020-02-25] MEDS: VANCOMYCIN HCL 1,250 MG in DEXTROSE 5%-WATER - 250 ML IVPB SCH (14:47)
[2020-02-25] MEDS: ATORVASTATIN CA 20 MG TABLET (FP) PO SCH (21:04)
[2020-02-26] MEDS: FUROSEMIDE 40 MG TABLET (FP) PO SCH ×2 (06:14→13:35)
[2020-02-26] MEDS: GABAPENTIN 300 MG CAPSULE PO SCH ×3 (06:14→21:21)
[2020-02-26] MEDS: INSULIN SLIDING SCALE (NOVOLOG) 1 VIAL SQ SCH ×2 (06:14→16:46)
[2020-02-26 09:13] LABS: BLOOD UREA NITROGEN 13.4 mg/dL (7-18); CALCIUM 8.3 mg/dL (8.5-10.1); CREATININE 0.6 mg/dL (0.55-1.3); POTASSIUM 4.1 mmol/L (3.5-5.1)
[2020-02-26 09:14] LABS: HEMATOCRIT 40.9 % (32.4-45.2); HEMOGLOBIN 13.4 GM/dL (10.7-15.3); MCH 29.6 pg (25.7-33.7); MCHC 32.9 g/dl (32.0-36.0); MEAN CELL VOLUME 89.9 fl (80-96); PLATELET COUNT 242 K/MM3 (134-434); RBC 4.55 M/mm3 (3.60-5.2); RDW 13.9 % (11.6-15.6); WHITE BLOOD COUNT 6.6 K/mm3 (4.0-10.0)
[2020-02-26] MEDS: ENALAPRIL MALEATE 5 MG TABLET (FP) PO SCH (09:32)
[2020-02-26] MEDS: ASPIRIN 81 MG CHEWABLE TABLETS PO SCH (09:32)
[2020-02-26] MEDS: ENOXAPARIN NA (PORCINE) 40 MG/0.4 ML DISP.SYRIN SQ SCH (09:32)
[2020-02-26] MEDS: COLLAGENASE CLOSTRIDIUM HIST. 30 GRAMS TUBE TP SCH (10:39)
--- NOTE | 2020-02-26 10:57 | PN ---
Progress Note, Physician History of Present Illness: patient seen and examined today. Chart is reviewed. Awake and comfortable. pain is okay Discussed with nursing staff--- just evaluated by wound care team will discuss with them - Current Medication List Current Medications: Active Medications Aspirin (Asa -) 81 mg PO DAILY [facility] Last Admin: 02/26/20 09:32 Dose: 81 mg Documented by: Atorvastatin Calcium (Lipitor -) 20 mg PO HS [facility] Last Admin: 02/25/20 21:04 Dose: 20 mg Documented by: Collagenase (Santyl -) 1 applic TP DAILY [facility]; Protocol Last Admin: 02/26/20 10:39 Dose: 1 applic Documented by: Enalapril Maleate (Vasotec -) 5 mg PO DAILY [facility] Last Admin: 02/26/20 09:32 Dose: 5 mg Documented by: Enoxaparin Sodium (Lovenox -) 40 mg SQ DAILY [facility] Last Admin: 02/26/20 09:32 Dose: 40 mg Documented by: Furosemide (Lasix -) 40 mg PO BIDLASIX [facility] Last Admin: 02/26/20 06:14 Dose: Not Given Documented by: Gabapentin (Neurontin -) 300 mg PO TID [facility] Last Admin: 02/26/20 06:14 Dose: 300 mg Documented by: Vancomycin HCl 1,250 mg/ (Dextrose) 250 mls @ 250 mls/2 hr IVPB Q24H [facility]; Protocol Last Admin: 02/25/20 14:47 Dose: 250 mls/2 hr Documented by: Insulin Aspart (Novolog Vial Sliding Scale -) 1 vial SQ BIDAC [facility]; Protocol Last Admin: 02/26/20 06:14 Dose: Not Given Documented by: Oxycodone HCl (Roxicodone -) 5 mg PO Q6H PRN PRN Reason: PAIN LEVEL 5-10 Last Admin: 02/25/20 14:53 Dose: 5 mg Documented by: - Objective Vital Signs: Vital Signs Temperature 98.3 F 02/26/20 10:45 Pulse Rate 76 02/26/20 10:45 Respiratory Rate 18 02/26/20 10:45 Blood Pressure 142/81 02/26/20 10:45 O2 Sat by Pulse Oximetry (%) 97 02/26/20 10:45 Constitutional: Yes: No Distress, Calm Neck: Yes: Supple Cardiovascular: Yes: Regular Rate and Rhythm Respiratory: Yes: CTA Bilaterally Gastrointestinal: Yes: Abdomen, Obese Wound/Incision: Yes: Dressing Dry and Intact Neurological: Yes: Alert Labs: CBC, BMP 02/26/20 07:21 02/26/20 07:21 Problem List - Problems (1) Non-healing wound of lower extremity Code(s): S81.809A - UNSPECIFIED OPEN WOUND, UNSPECIFIED LOWER LEG, INIT ENCNTR Qualifiers: Encounter type: subsequent encounter Laterality: right Qualified Code(s): S81.801D - Unspecified open wound, right lower leg, subsequent encounter (2) Diabetic leg 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 Code(s): E10.622 - TYPE 1 DIABETES MELLITUS WITH OTHER SKIN ULCER; L97.909 - NON-PRS CHRONIC ULC UNSP PRT OF UNSP LOW LEG W UNSP SEVERITY (3) Insulin dependent diabetes mellitus Code(s): E11.9 - TYPE 2 DIABETES MELLITUS WITHOUT COMPLICATIONS; Z79.4 - CUSTODIAL (CURRENT) USE OF INSULIN (4) Morbid obesity Code(s): E66.01 - MORBID (SEVERE) OBESITY DUE TO EXCESS CALORIES (5) Venous stasis ulcer Code(s): I83.009 - VARICOSE VEINS OF UNSP LOWER EXTREMITY W ULCER OF UNSP SITE; L97.909 - NON-PRS CHRONIC ULC UNSP PRT OF UNSP LOW LEG W UNSP SEVERITY Assessment/Plan Clinically stable , continue antibiotics Wound care team following follow-up cultures Monitor blood sugar We will continue to follow DVT prophylaxis
--- NOTE | 2020-02-26 11:46 | CONSULT ---
- Consultation REQUESTING PROVIDER: CONSULT REQUEST: We have been asked to surgically evaluate this patient for RLE ulcer Hospitalist:Jermaine Velasco HISTORY OF PRESENT ILLNESS: 60yo F well known to vascular team presented to the ED after visiting nurse was concerned, pt chronic RLE ulcer was infected. Pt states that it was more red and smelled worse than normal. Pt states that today wound looks much better than before. Pt denies h/o smoking and PMHx: DM, HTN, HLD, obesity Home Medications Medication Instructions Recorded Gabapentin [Neurontin -] 300 mg PO TID 12/09/18 Insulin Lispro Protamin/Lispro 50 unit SQ BID 12/12/18 [Humalog Mix 75-25 Kwikpen] Magnesium Oxide [Magnesium] 400 mg PO ASDIR 12/12/18 [place]-3S/Dha/Epa/Fish Oil/D3 1 each PO DAILY 12/12/18 [[place]-3 + D Softgel] Ibuprofen 800 mg PO TID PRN 05/19/19 Liraglutide [Victoza -] 1.8 mg SQ DAILY@0700 05/19/19 Acetaminophen [Tylenol .Regular 650 mg PO Q4H PRN tablet 05/22/19 Strength -] Insulin Sliding Scale [Novolog 1 vial SQ BIDAC units 05/22/19 Vial Sliding Scale -] Aspirin 81 mg PO DAILY 01/05/20 Atorvastatin Ca [Lipitor] 0 mg PO HS 01/05/20 Enalapril Maleate [Vasotec] 5 mg PO DAILY 01/05/20 Furosemide [Lasix -] 40 mg PO BID 01/05/20 Metformin HCl [Glucophage] 500 mg PO BID 01/05/20 Multivitamin 1 each PO DAILY 01/05/20 Linezolid 600 mg PO BID #14 tablet 01/13/20 oxyCODONE HCL [Roxicodone -] 10 mg PO Q12H PRN #15 tablet MDD 2 01/13/20 Allergies Allergy/AdvReac Type Severity Reaction Status Date / Time No Known Drug Allergies Allergy Verified 02/25/20 13:59 adhesive tape AdvReac Intermediate Hives Verified 02/23/20 17:42 PHYSICAL EXAM: GENERAL: Awake, alert, and fully oriented, in no acute distress. HEAD: Normal with no signs of trauma. EYES: PERRL, sclera anicteric, conjunctiva clear. NECK: Normal ROM, supple without lymphadenopathy, JVD, or masses. LUNGS: Clear to auscultation bilat anteriorly. No wheezes, and no crackles. No accessory muscle use. LOWER EXTREMITIES: 2+ pulses, warm, well-perfused. No calf tenderness. No peripheral edema. NEUROLOGICAL: Normal speech, gait not observed. PSYCH: Cooperative. Good eye contact. Appropriate mood and affect. Lateral anterior reis wound 5.5x4.5x.5cm with granulation tissue present, surrounding tissue with minimal maceration distally. No foul odor Vital Signs Temperature 98.3 F 02/26/20 10:45 Pulse Rate 76 02/26/20 10:45 Respiratory Rate 18 02/26/20 10:45 Blood Pressure 142/81 02/26/20 10:45 O2 Sat by Pulse Oximetry (%) 97 02/26/20 10:45 Lab Results WBC 6.6 K/mm3 (4.0-10.0) 02/26/20 07:21 RBC 4.55 M/mm3 (3.60-5.2) 02/26/20 07:21 Hgb 13.4 GM/dL (10.7-15.3) 02/26/20 07:21 Hct 40.9 % (32.4-45.2) 02/26/20 07:21 MCV 89.9 fl (80-96) 02/26/20 07:21 MCHC 32.9 g/dl (32.0-36.0) 02/26/20 07:21 RDW 13.9 % (11.6-15.6) 02/26/20 07:21 Plt Count 242 K/MM3 (134-434) 02/26/20 07:21 Sodium 142 mmol/L (136-145) 02/26/20 07:21 Potassium 4.1 mmol/L (3.5-5.1) 02/26/20 07:21 Chloride 108 mmol/L (98-107) H 02/26/20 07:21 Carbon Dioxide 27 mmol/L (21-32) 02/26/20 07:21 Anion Gap 7 MMOL/L (8-16) L 02/26/20 07:21 BUN 13.4 mg/dL (7-18) 02/26/20 07:21 Creatinine 0.6 mg/dL (0.55-1.3) 02/26/20 07:21 Random Glucose 137 mg/dL (74-106) H 02/26/20 07:21 Calcium 8.3 mg/dL (8.5-10.1) L 02/26/20 07:21 Problem List - Problems (1) Non-healing wound of lower extremity Assessment/Plan: -continue daily dressing changes with dry dressing and santyl -Continue antibiotics per ID/medical team -Elevate the lower extremity above the level of the heart at all times while at rest -Bilateral compression with danica wraps once cellulitis has receded (wrap from metacarpal heads to below knee) -Domeboro soaks QD (astringent for pruritus) -Apply Lac hydrin daily (for dry scaly skin) -follow up with wound clinic as outpatient Code(s): S81.809A - UNSPECIFIED OPEN WOUND, UNSPECIFIED LOWER LEG, INIT ENCNTR Qualifiers: Encounter type: subsequent encounter Laterality: right Qualified Code(s): S81.801D - Unspecified open wound, right lower leg, subsequent encounter
[2020-02-26] MEDS ORDERED: PT OWN MED DRAWER 7, Y5N ONE (13:11)
--- NOTE | 2020-02-26 13:26 | PN ---
Progress Note, Physician History of Present Illness: stable no new issues - Current Medication List Current Medications: Active Medications Aspirin (Asa -) 81 mg PO DAILY [facility] Last Admin: 02/26/20 09:32 Dose: 81 mg Documented by: Atorvastatin Calcium (Lipitor -) 20 mg PO HS [facility] Last Admin: 02/25/20 21:04 Dose: 20 mg Documented by: Collagenase (Santyl -) 1 applic TP DAILY [facility]; Protocol Last Admin: 02/26/20 10:39 Dose: 1 applic Documented by: Enalapril Maleate (Vasotec -) 5 mg PO DAILY [facility] Last Admin: 02/26/20 09:32 Dose: 5 mg Documented by: Enoxaparin Sodium (Lovenox -) 40 mg SQ DAILY [facility] Last Admin: 02/26/20 09:32 Dose: 40 mg Documented by: Furosemide (Lasix -) 40 mg PO BIDLASIX [facility] Last Admin: 02/26/20 06:14 Dose: Not Given Documented by: Gabapentin (Neurontin -) 300 mg PO TID [facility] Last Admin: 02/26/20 06:14 Dose: 300 mg Documented by: Vancomycin HCl 1,250 mg/ (Dextrose) 250 mls @ 250 mls/2 hr IVPB Q24H [facility]; Protocol Last Admin: 02/25/20 14:47 Dose: 250 mls/2 hr Documented by: Insulin Aspart (Novolog Vial Sliding Scale -) 1 vial SQ BIDAC [facility]; Protocol Last Admin: 02/26/20 06:14 Dose: Not Given Documented by: Oxycodone HCl (Roxicodone -) 5 mg PO Q6H PRN PRN Reason: PAIN LEVEL 5-10 Last Admin: 02/25/20 14:53 Dose: 5 mg Documented by: - Objective Vital Signs: Vital Signs Temperature 98.3 F 02/26/20 10:45 Pulse Rate 76 02/26/20 10:45 Respiratory Rate 18 02/26/20 10:45 Blood Pressure 142/81 02/26/20 10:45 O2 Sat by Pulse Oximetry (%) 97 02/26/20 10:45 Constitutional: Yes: No Distress, Calm Cardiovascular: Yes: S1, S2 Respiratory: Yes: Regular, CTA Bilaterally Gastrointestinal: Yes: Normal Bowel Sounds, Soft Musculoskeletal: Yes: WNL Extremities: Yes: Other Wound/Incision: Yes: Dressing Dry and Intact Neurological: Yes: Alert, Oriented Psychiatric: Yes: Alert, Oriented Labs: CBC, BMP 02/26/20 07:21 02/26/20 07:21 Assessment/Plan Problem List - Problems (1) Non-healing wound of lower extremity Code(s): S81.809A - UNSPECIFIED OPEN WOUND, UNSPECIFIED LOWER LEG, INIT ENCNTR Qualifiers: Encounter type: subsequent encounter Laterality: right Qualified Code(s): S81.801D - Unspecified open wound, right lower leg, subsequent encounter (2) Diabetic leg 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 Code(s): E10.622 - TYPE 1 DIABETES MELLITUS WITH OTHER SKIN ULCER; L97.909 - NON-PRS CHRONIC ULC UNSP PRT OF UNSP LOW LEG W UNSP SEVERITY (3) MRSA (methicillin resistant Staphylococcus aureus) infection Code(s): A49.02 - METHICILLIN RESIS STAPH INFECTION, UNSP SITE (4) Morbid obesity Code(s): E66.01 - MORBID (SEVERE) OBESITY DUE TO EXCESS CALORIES plan continue ovidioo will add zosyn wound care rest as per the team
[2020-02-26] MEDS: VANCOMYCIN HCL 1,250 MG in DEXTROSE 5%-WATER - 250 ML IVPB SCH (14:22)
[2020-02-26] MEDS: PIPERACILLIN/TAZOB 3.375 GM 3.375 GM in DEXTROSE 5%-WATER - 50 ML IVPB SCH ×2 (15:34→17:25)
[2020-02-26] MEDS ORDERED: DEXTROSE 5%-WATER - 50 ML IVPB ONE (16:53)
[2020-02-26] MEDS ORDERED: PIPERACILLIN/TAZOBACTAM 3.375 GM VIAL IVPB ONE (16:53)
[2020-02-26] MEDS: ATORVASTATIN CA 20 MG TABLET (FP) PO SCH (21:21)
[2020-02-27] MEDS ORDERED: PIPERACILLIN/TAZOBACTAM 3.375 GM VIAL IVPB ONE ×3 (01:22→16:48)
[2020-02-27] MEDS ORDERED: DEXTROSE 5%-WATER - 50 ML IVPB ONE ×3 (01:22→16:48)
[2020-02-27] MEDS: PIPERACILLIN/TAZOB 3.375 GM 3.375 GM in DEXTROSE 5%-WATER - 50 ML IVPB SCH ×3 (01:35→17:05)
[2020-02-27] MEDS: oxyCODONE HCL 5 MG TABLET PO PRN (04:01)
[2020-02-27] MEDS: GABAPENTIN 300 MG CAPSULE PO SCH ×3 (05:30→21:00)
[2020-02-27] MEDS: FUROSEMIDE 40 MG TABLET (FP) PO SCH ×2 (05:30→13:47)
[2020-02-27] MEDS: INSULIN SLIDING SCALE (NOVOLOG) 1 VIAL SQ SCH ×2 (06:11→17:05)
[2020-02-27] MEDS: ENOXAPARIN NA (PORCINE) 40 MG/0.4 ML DISP.SYRIN SQ SCH (10:21)
[2020-02-27] MEDS: ENALAPRIL MALEATE 5 MG TABLET (FP) PO SCH (10:21)
[2020-02-27] MEDS: ASPIRIN 81 MG CHEWABLE TABLETS PO SCH (10:21)
--- NOTE | 2020-02-27 12:18 | PN ---
Progress Note, Physician History of Present Illness: stable no new issues - Current Medication List Current Medications: Active Medications Aspirin (Asa -) 81 mg PO DAILY [facility] Last Admin: 02/27/20 10:21 Dose: 81 mg Documented by: Atorvastatin Calcium (Lipitor -) 20 mg PO HS [facility] Last Admin: 02/26/20 21:21 Dose: 20 mg Documented by: Collagenase (Santyl -) 1 applic TP DAILY [facility]; Protocol Last Admin: 02/26/20 10:39 Dose: 1 applic Documented by: Enalapril Maleate (Vasotec -) 5 mg PO DAILY [facility] Last Admin: 02/27/20 10:21 Dose: 5 mg Documented by: Enoxaparin Sodium (Lovenox -) 40 mg SQ DAILY [facility] Last Admin: 02/27/20 10:21 Dose: 40 mg Documented by: Furosemide (Lasix -) 40 mg PO BIDLASIX [facility] Last Admin: 02/27/20 05:30 Dose: Not Given Documented by: Gabapentin (Neurontin -) 300 mg PO TID [facility] Last Admin: 02/27/20 05:30 Dose: 300 mg Documented by: Vancomycin HCl 1,250 mg/ (Dextrose) 250 mls @ 250 mls/2 hr IVPB Q24H [facility]; Protocol Last Admin: 02/26/20 14:22 Dose: 250 mls/2 hr Documented by: Piperacillin Sod/Tazobactam (Sod 3.375 gm/ Dextrose) 50 mls @ 100 mls/hr IVPB Q8H-IV [facility]; Protocol Last Admin: 02/27/20 10:21 Dose: 100 mls/hr Documented by: Insulin Aspart (Novolog Vial Sliding Scale -) 1 vial SQ BIDAC [facility]; Protocol Last Admin: 02/27/20 06:11 Dose: Not Given Documented by: Oxycodone HCl (Roxicodone -) 5 mg PO Q6H PRN PRN Reason: PAIN LEVEL 5-10 Last Admin: 02/27/20 04:01 Dose: 5 mg Documented by: - Objective Vital Signs: Vital Signs Temperature 97.7 F 02/27/20 06:00 Pulse Rate 62 02/27/20 06:00 Respiratory Rate 18 02/27/20 06:00 Blood Pressure 144/74 02/27/20 06:00 O2 Sat by Pulse Oximetry (%) 94 L 02/27/20 06:00 Constitutional: Yes: No Distress, Calm, Obese Cardiovascular: Yes: S1, S2 Respiratory: Yes: Regular, CTA Bilaterally Gastrointestinal: Yes: Normal Bowel Sounds, Soft Musculoskeletal: Yes: WNL Extremities: Yes: Other Wound/Incision: Yes: Dressing Dry and Intact Neurological: Yes: Alert, Confusion Psychiatric: Yes: Alert, Oriented Labs: CBC, BMP 02/26/20 07:21 02/26/20 07:21 Assessment/Plan Problem List - Problems (1) Non-healing wound of lower extremity Code(s): S81.809A - UNSPECIFIED OPEN WOUND, UNSPECIFIED LOWER LEG, INIT ENCNTR Qualifiers: Encounter type: subsequent encounter Laterality: right Qualified Code(s): S81.801D - Unspecified open wound, right lower leg, subsequent encounter (2) Diabetic leg 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 Code(s): E10.622 - TYPE 1 DIABETES MELLITUS WITH OTHER SKIN ULCER; L97.909 - NON-PRS CHRONIC ULC UNSP PRT OF UNSP LOW LEG W UNSP SEVERITY (3) MRSA (methicillin resistant Staphylococcus aureus) infection Code(s): A49.02 - METHICILLIN RESIS STAPH INFECTION, UNSP SITE (4) Morbid obesity Code(s): E66.01 - MORBID (SEVERE) OBESITY DUE TO EXCESS CALORIES plan continue abx wound care
--- NOTE | 2020-02-27 13:00 | PN ---
Progress Note (short form) - Note Progress Note: anxious Vital Signs - 24 hr 02/26/20 02/26/20 02/26/20 14:40 19:22 21:00 Temperature 98.6 F 98.5 F Pulse Rate 68 71 Respiratory 18 18 Rate Blood Pressure 149/75 152/75 O2 Sat by Pulse 97 97 97 Oximetry (%) 02/26/20 02/27/20 02/27/20 21:22 06:00 09:00 Temperature 99 F 97.7 F Pulse Rate 62 62 Respiratory 18 18 Rate Blood Pressure 143/71 144/74 O2 Sat by Pulse 97 94 L 94 L Oximetry (%) 02/27/20 10:00 Temperature Pulse Rate 70 Respiratory 18 Rate Blood Pressure 133/77 O2 Sat by Pulse 95 Oximetry (%) Current Medications Generic Name Dose Route Start Last Admin Trade Name Freq PRN Reason Stop Dose Admin Aspirin 81 mg 02/24/20 10:00 02/27/20 10:21 Asa - PO 81 mg DAILY [facility] Administration Atorvastatin Calcium 20 mg 02/23/20 22:00 02/26/20 21:21 Lipitor - PO 20 mg HS [facility] Administration Collagenase 1 applic 02/25/20 13:15 02/26/20 10:39 Santyl - TP 1 applic DAILY [facility] Administration Protocol Enalapril Maleate 5 mg 02/24/20 10:00 02/27/20 10:21 Vasotec - PO 5 mg DAILY [facility] Administration Enoxaparin Sodium 40 mg 02/23/20 19:30 02/27/20 10:21 Lovenox - SQ 40 mg DAILY [facility] Administration Furosemide 40 mg 02/23/20 20:00 02/27/20 05:30 Lasix - PO Not Given BIDLASIX [facility] Gabapentin 300 mg 02/23/20 22:00 02/27/20 05:30 Neurontin - PO 300 mg TID [facility] Administration Vancomycin HCl 1,250 mg/ 250 mls @ 250 mls/2 hr 02/24/20 14:00 02/26/20 14:22 Dextrose IVPB 250 mls/2 hr Q24H [facility] Administration Protocol Piperacillin Sod/Tazobactam 50 mls @ 100 mls/hr 02/26/20 14:30 02/27/20 10:21 Sod 3.375 gm/ Dextrose IVPB 100 mls/hr Q8H-IV [facility] Administration Protocol Insulin Aspart 1 vial 02/24/20 07:00 02/27/20 06:11 Novolog Vial Sliding Scale - SQ Not Given BIDAC [facility] Protocol Oxycodone HCl 5 mg 02/24/20 16:40 02/27/20 04:01 Roxicodone - PO 5 mg Q6H PRN Administration PAIN LEVEL 5-10 Laboratory Results - last 24 hr 02/26/20 02/27/20 16:44 05:26 POC Glucometer 166 146 Microbiology 02/25/20 14:32 Gram Stain - Final Leg - Right Lower Wound Culture - Preliminary Lactose Fermenting Neg Bacilli Non Lactose Fermenting Gnb Non Lactose Fermenting Gnb#2 Staphylococcus Latex Coag Pos 02/23/20 16:30 Blood Culture - Preliminary Blood - Peripheral Venous NO GROWTH OBTAINED AFTER 72 HOURS, INCUBATION TO CONTINUE FOR 2 DAYS. 02/23/20 16:30 Blood Culture - Preliminary Blood - Peripheral Venous NO GROWTH OBTAINED AFTER 72 HOURS, INCUBATION TO CONTINUE FOR 2 DAYS. 02/23/20 16:40 Gram Stain - Final Drainage (Swab) Wound Culture - Final Non Lactose Fermenting Gnb Non Lactose Fermenting Gnb#2 Lactose Fermenting Neg Bacilli Lactose Fermenting Neg Bacilli#2 Mr S Aureus S1 S2 RRR Lungs decreased Abd- soft, NT edema+ right leg-- ulcer+, slough present, slight decrease in redness of surrounding skin A/P IV antibiotics per ID pain control repeat wound cultures noted santyl daily wound care lashaeamanda appreciated spoke with ID-- he will speak with wound care about possible graft placement to facilitate healing DVT prophylaxis Problem List - Problems (1) Non-healing wound of lower extremity Code(s): S81.809A - UNSPECIFIED OPEN WOUND, UNSPECIFIED LOWER LEG, INIT ENCNTR Qualifiers: Encounter type: subsequent encounter Laterality: right Qualified Code(s): S81.801D - Unspecified open wound, right lower leg, subsequent encounter (2) Diabetic leg 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 Code(s): E10.622 - TYPE 1 DIABETES MELLITUS WITH OTHER SKIN ULCER; L97.909 - NON-PRS CHRONIC ULC UNSP PRT OF UNSP LOW LEG W UNSP SEVERITY (3) Insulin dependent diabetes mellitus Code(s): E11.9 - TYPE 2 DIABETES MELLITUS WITHOUT COMPLICATIONS; Z79.4 - LICENSING REGISTRATION EXAMINER (CURRENT) USE OF INSULIN (4) Morbid obesity Code(s): E66.01 - MORBID (SEVERE) OBESITY DUE TO EXCESS CALORIES
[2020-02-27] MEDS ORDERED: PT OWN MED DRAWER 7, Y5N ONE (13:38)
[2020-02-27] MEDS: VANCOMYCIN HCL 1,250 MG in DEXTROSE 5%-WATER - 250 ML IVPB SCH (13:47)
[2020-02-27] MEDS: INSULIN (NOVOLOG MIX 70/30) 100 UNITS/ML MDV SQ SCH (17:04)
[2020-02-27] MEDS: COLLAGENASE CLOSTRIDIUM HIST. 30 GRAMS TUBE TP SCH (18:37)
[2020-02-27] MEDS: ATORVASTATIN CA 20 MG TABLET (FP) PO SCH (21:00)
[2020-02-28] MEDS ORDERED: PIPERACILLIN/TAZOBACTAM 3.375 GM VIAL IVPB ONE ×3 (00:41→16:58)
[2020-02-28] MEDS ORDERED: DEXTROSE 5%-WATER - 50 ML IVPB ONE ×3 (00:41→16:58)
[2020-02-28] MEDS: PIPERACILLIN/TAZOB 3.375 GM 3.375 GM in DEXTROSE 5%-WATER - 50 ML IVPB SCH ×3 (01:10→17:33)
[2020-02-28] MEDS: FUROSEMIDE 40 MG TABLET (FP) PO SCH ×2 (06:15→14:42)
[2020-02-28] MEDS: GABAPENTIN 300 MG CAPSULE PO SCH ×3 (06:17→21:26)
[2020-02-28] MEDS: INSULIN (NOVOLOG MIX 70/30) 100 UNITS/ML MDV SQ SCH ×2 (06:18→17:33)
[2020-02-28] MEDS: INSULIN SLIDING SCALE (NOVOLOG) 1 VIAL SQ SCH ×2 (06:22→16:55)
[2020-02-28] MEDS: ASPIRIN 81 MG CHEWABLE TABLETS PO SCH (09:21)
[2020-02-28] MEDS: ENALAPRIL MALEATE 5 MG TABLET (FP) PO SCH (09:21)
[2020-02-28] MEDS: ENOXAPARIN NA (PORCINE) 40 MG/0.4 ML DISP.SYRIN SQ SCH (09:21)
--- NOTE | 2020-02-28 10:47 | PN ---
Progress Note, Physician History of Present Illness: stable no new issues - Current Medication List Current Medications: Active Medications Aspirin (Asa -) 81 mg PO DAILY [facility] Last Admin: 02/28/20 09:21 Dose: 81 mg Documented by: Atorvastatin Calcium (Lipitor -) 20 mg PO HS [facility] Last Admin: 02/27/20 21:00 Dose: 20 mg Documented by: Collagenase (Santyl -) 1 applic TP DAILY [facility]; Protocol Last Admin: 02/27/20 18:37 Dose: 1 applic Documented by: Enalapril Maleate (Vasotec -) 5 mg PO DAILY [facility] Last Admin: 02/28/20 09:21 Dose: 5 mg Documented by: Enoxaparin Sodium (Lovenox -) 40 mg SQ DAILY [facility] Last Admin: 02/28/20 09:21 Dose: 40 mg Documented by: Furosemide (Lasix -) 40 mg PO BIDLASIX [facility] Last Admin: 02/28/20 06:15 Dose: Not Given Documented by: Gabapentin (Neurontin -) 300 mg PO TID [facility] Last Admin: 02/28/20 06:17 Dose: 300 mg Documented by: Vancomycin HCl 1,250 mg/ (Dextrose) 250 mls @ 250 mls/2 hr IVPB Q24H [facility]; Protocol Last Admin: 02/27/20 13:47 Dose: 250 mls/2 hr Documented by: Piperacillin Sod/Tazobactam (Sod 3.375 gm/ Dextrose) 50 mls @ 100 mls/hr IVPB Q8H-IV [facility]; Protocol Last Admin: 02/28/20 09:20 Dose: 100 mls/hr Documented by: Insulin Aspart (Novolog Vial Sliding Scale -) 1 vial SQ BIDAC [facility]; Protocol Last Admin: 02/28/20 06:22 Dose: Not Given Documented by: Insulin Aspart (Novolog Mix 70/30 Vial) 20 units SQ BIDAC [facility] Last Admin: 02/28/20 06:18 Dose: 20 units Documented by: Oxycodone HCl (Roxicodone -) 5 mg PO Q6H PRN PRN Reason: PAIN LEVEL 5-10 Last Admin: 02/27/20 04:01 Dose: 5 mg Documented by: - Objective Vital Signs: Vital Signs Temperature 97.6 F 02/28/20 06:00 Pulse Rate 54 L 02/28/20 06:00 Respiratory Rate 18 02/28/20 06:00 Blood Pressure 123/56 L 02/28/20 06:00 O2 Sat by Pulse Oximetry (%) 94 L 02/28/20 06:00 Constitutional: Yes: No Distress, Calm Cardiovascular: Yes: S1, S2 Respiratory: Yes: Regular, CTA Bilaterally Gastrointestinal: Yes: Normal Bowel Sounds, Soft Musculoskeletal: Yes: WNL Extremities: Yes: Other Wound/Incision: Yes: Dressing Dry and Intact Neurological: Yes: Alert, Oriented Psychiatric: Yes: Alert, Oriented Labs: CBC, BMP 02/26/20 07:21 02/26/20 07:21 Assessment/Plan Problem List - Problems (1) Non-healing wound of lower extremity Code(s): S81.809A - UNSPECIFIED OPEN WOUND, UNSPECIFIED LOWER LEG, INIT ENCNTR Qualifiers: Encounter type: subsequent encounter Laterality: right Qualified Code(s): S81.801D - Unspecified open wound, right lower leg, subsequent encounter (2) Diabetic leg 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 Code(s): E10.622 - TYPE 1 DIABETES MELLITUS WITH OTHER SKIN ULCER; L97.909 - NON-PRS CHRONIC ULC UNSP PRT OF UNSP LOW LEG W UNSP SEVERITY (3) MRSA (methicillin resistant Staphylococcus aureus) infection Code(s): A49.02 - METHICILLIN RESIS STAPH INFECTION, UNSP SITE (4) Morbid obesity Code(s): E66.01 - MORBID (SEVERE) OBESITY DUE TO EXCESS CALORIES plan continue abx wound care will check vnco trough rest as per the team
[2020-02-28] MEDS ORDERED: PT OWN MED DRAWER 7, Y5N ONE (14:34)
[2020-02-28] MEDS: VANCOMYCIN HCL 1,250 MG in DEXTROSE 5%-WATER - 250 ML IVPB SCH (14:42)
[2020-02-28] MEDS: COLLAGENASE CLOSTRIDIUM HIST. 30 GRAMS TUBE TP SCH (15:02)
--- NOTE | 2020-02-28 17:14 | PN ---
Progress Note (short form) - Note Progress Note: anxious Vital Signs - 24 hr 02/28/20 02/28/20 02/28/20 06:00 10:00 13:30 Temperature 97.6 F 98.0 F Pulse Rate 54 L 74 80 Respiratory 18 20 18 Rate Blood Pressure 123/56 L 157/77 127/78 O2 Sat by Pulse 94 L 98 Oximetry (%) 02/28/20 02/28/20 02/28/20 18:43 20:36 21:47 Temperature 98.0 F 97.6 F Pulse Rate 79 81 Respiratory 18 18 Rate Blood Pressure 104/74 123/78 O2 Sat by Pulse 96 97 98 Oximetry (%) Current Medications Generic Name Dose Route Start Last Admin Trade Name Freq PRN Reason Stop Dose Admin Aspirin 81 mg 02/24/20 10:00 02/28/20 09:21 Asa - PO 81 mg DAILY CRISTINE Administration Atorvastatin Calcium 20 mg 02/23/20 22:00 02/28/20 21:26 Lipitor - PO 20 mg HS CRISTINE Administration Collagenase 1 applic 02/25/20 13:15 02/28/20 15:02 Santyl - TP 1 applic DAILY CRISTINE Administration Protocol Enalapril Maleate 5 mg 02/24/20 10:00 02/28/20 09:21 Vasotec - PO 5 mg DAILY CRISTINE Administration Enoxaparin Sodium 40 mg 02/23/20 19:30 02/28/20 09:21 Lovenox - SQ 40 mg DAILY CRISTINE Administration Furosemide 40 mg 02/23/20 20:00 02/28/20 14:42 Lasix - PO Not Given BIDLASIX CRISTINE Gabapentin 300 mg 02/23/20 22:00 02/28/20 21:26 Neurontin - PO 300 mg TID CRISTINE Administration Vancomycin HCl 1,250 mg/ 250 mls @ 250 mls/2 hr 02/24/20 14:00 02/28/20 14:42 Dextrose IVPB 250 mls/2 hr Q24H CRISTINE Administration Protocol Piperacillin Sod/Tazobactam 50 mls @ 100 mls/hr 02/26/20 14:30 02/28/20 17:33 Sod 3.375 gm/ Dextrose IVPB 100 mls/hr Q8H-IV CRISTINE Administration Protocol Insulin Aspart 1 vial 02/24/20 07:00 02/28/20 16:55 Novolog Vial Sliding Scale - SQ Not Given BIDAC CRISTINE Protocol Insulin Aspart 20 units 02/27/20 16:30 02/28/20 17:33 Novolog Mix 70/30 Vial SQ 20 units BIDAC CRISTINE Administration Oxycodone HCl 5 mg 02/24/20 16:40 02/27/20 04:01 Roxicodone - PO 5 mg Q6H PRN Administration PAIN LEVEL 5-10 Laboratory Results - last 24 hr 02/28/20 02/28/20 02/28/20 06:20 15:10 16:43 POC Glucometer 132 181 Vancomycin Pre-Dose 3.6 L Microbiology 02/23/20 16:30 Blood Culture - Final Blood - Peripheral Venous NO GROWTH AFTER 5 DAYS INCUBATION 02/23/20 16:30 Blood Culture - Final Blood - Peripheral Venous NO GROWTH AFTER 5 DAYS INCUBATION 02/25/20 14:32 Gram Stain - Final Leg - Right Lower Wound Culture - Final Lactose Fermenting Neg Bacilli Non Lactose Fermenting Gnb Non Lactose Fermenting Gnb#2 Mr S Aureus Group D Strep Or Entero Coccus S1 S2 RRR Lungs decreased Abd- soft, NT edema+ right leg-- ulcer+, slough present, slight decrease in redness of surrounding skin A/P IV antibiotics per ID pain control repeat wound cultures noted santyl daily wound care eval appreciated DVT prophylaxis Problem List - Problems (1) Non-healing wound of lower extremity Code(s): S81.809A - UNSPECIFIED OPEN WOUND, UNSPECIFIED LOWER LEG, INIT ENCNTR Qualifiers: Encounter type: subsequent encounter Laterality: right Qualified Code(s): S81.801D - Unspecified open wound, right lower leg, subsequent encounter (2) Diabetic leg 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 Code(s): E10.622 - TYPE 1 DIABETES MELLITUS WITH OTHER SKIN ULCER; L97.909 - NON-PRS CHRONIC ULC UNSP PRT OF UNSP LOW LEG W UNSP SEVERITY (3) Insulin dependent diabetes mellitus Code(s): E11.9 - TYPE 2 DIABETES MELLITUS WITHOUT COMPLICATIONS; Z79.4 - SENIOR CARE (CURRENT) USE OF INSULIN (4) Morbid obesity Code(s): E66.01 - MORBID (SEVERE) OBESITY DUE TO EXCESS CALORIES
[2020-02-28] MEDS: ATORVASTATIN CA 20 MG TABLET (FP) PO SCH (21:26)
[2020-02-29] MEDS ORDERED: DEXTROSE 5%-WATER - 50 ML IVPB ONE ×3 (02:52→17:07)
[2020-02-29] MEDS ORDERED: PIPERACILLIN/TAZOBACTAM 3.375 GM VIAL IVPB ONE ×3 (02:52→17:07)
[2020-02-29] MEDS: PIPERACILLIN/TAZOB 3.375 GM 3.375 GM in DEXTROSE 5%-WATER - 50 ML IVPB SCH ×3 (02:55→18:07)
[2020-02-29] MEDS: INSULIN (NOVOLOG MIX 70/30) 100 UNITS/ML MDV SQ SCH ×2 (06:07→16:56)
[2020-02-29] MEDS: GABAPENTIN 300 MG CAPSULE PO SCH ×3 (06:07→21:37)
[2020-02-29] MEDS: FUROSEMIDE 40 MG TABLET (FP) PO SCH ×2 (06:07→16:52)
[2020-02-29] MEDS: INSULIN SLIDING SCALE (NOVOLOG) 1 VIAL SQ SCH ×2 (06:15→16:55)
[2020-02-29 07:53] LABS: HEMATOCRIT 41.3 % (32.4-45.2); HEMOGLOBIN 13.6 GM/dL (10.7-15.3); MCH 29.6 pg (25.7-33.7); MEAN CELL VOLUME 89.7 fl (80-96); MEAN PLT VOLUME 8.3 fl (7.5-11.1); PLATELET COUNT 234 K/MM3 (134-434); WHITE BLOOD COUNT 6.7 K/mm3 (4.0-10.0)
[2020-02-29 08:23] LABS: ALBUMIN 2.9 g/dl (3.4-5.0); BLOOD UREA NITROGEN 15.8 mg/dL (7-18); CALCIUM 8.6 mg/dL (8.5-10.1); CREATININE 0.7 mg/dL (0.55-1.3); TOT PROT 5.9 g/dl (6.4-8.2)
--- NOTE | 2020-02-29 08:24 | PN ---
Progress Note, Physician History of Present Illness: christine says her wound has not been healing well does not want deep debridement - Current Medication List Current Medications: Active Medications Aspirin (Asa -) 81 mg PO DAILY [facility] Last Admin: 02/28/20 09:21 Dose: 81 mg Documented by: Atorvastatin Calcium (Lipitor -) 20 mg PO HS [facility] Last Admin: 02/28/20 21:26 Dose: 20 mg Documented by: Collagenase (Santyl -) 1 applic TP DAILY [facility]; Protocol Last Admin: 02/28/20 15:02 Dose: 1 applic Documented by: Enalapril Maleate (Vasotec -) 5 mg PO DAILY [facility] Last Admin: 02/28/20 09:21 Dose: 5 mg Documented by: Enoxaparin Sodium (Lovenox -) 40 mg SQ DAILY [facility] Last Admin: 02/28/20 09:21 Dose: 40 mg Documented by: Furosemide (Lasix -) 40 mg PO BIDLASIX [facility] Last Admin: 02/29/20 06:07 Dose: Not Given Documented by: Gabapentin (Neurontin -) 300 mg PO TID [facility] Last Admin: 02/29/20 06:07 Dose: 300 mg Documented by: Vancomycin HCl 1,250 mg/ (Dextrose) 250 mls @ 250 mls/2 hr IVPB Q24H [facility]; Protocol Last Admin: 02/28/20 14:42 Dose: 250 mls/2 hr Documented by: Piperacillin Sod/Tazobactam (Sod 3.375 gm/ Dextrose) 50 mls @ 100 mls/hr IVPB Q8H-IV [facility]; Protocol Last Admin: 02/29/20 02:55 Dose: 100 mls/hr Documented by: Insulin Aspart (Novolog Vial Sliding Scale -) 1 vial SQ BIDAC [facility]; Protocol Last Admin: 02/29/20 06:15 Dose: Not Given Documented by: Insulin Aspart (Novolog Mix 70/30 Vial) 20 units SQ BIDAC [facility] Last Admin: 02/29/20 06:07 Dose: 20 units Documented by: Oxycodone HCl (Roxicodone -) 5 mg PO Q6H PRN PRN Reason: PAIN LEVEL 5-10 Last Admin: 02/27/20 04:01 Dose: 5 mg Documented by: - Objective Vital Signs: Vital Signs Temperature 97.6 F 02/29/20 05:26 Pulse Rate 66 02/29/20 05:26 Respiratory Rate 18 02/29/20 05:26 Blood Pressure 126/74 02/29/20 05:26 O2 Sat by Pulse Oximetry (%) 96 02/29/20 05:26 Constitutional: Yes: No Distress, Calm Cardiovascular: Yes: S1, S2 Respiratory: Yes: Regular, CTA Bilaterally Gastrointestinal: Yes: Normal Bowel Sounds, Soft Musculoskeletal: Yes: WNL Extremities: Yes: Other Wound/Incision: Yes: Dressing Dry and Intact Neurological: Yes: Alert, Oriented Psychiatric: Yes: Alert, Oriented Labs: CBC, BMP 02/29/20 07:10 Assessment/Plan Problem List - Problems (1) Non-healing wound of lower extremity Code(s): S81.809A - UNSPECIFIED OPEN WOUND, UNSPECIFIED LOWER LEG, INIT ENCNTR Qualifiers: Encounter type: subsequent encounter Laterality: right Qualified Code(s): S81.801D - Unspecified open wound, right lower leg, subsequent encounter (2) Diabetic leg 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 Code(s): E10.622 - TYPE 1 DIABETES MELLITUS WITH OTHER SKIN ULCER; L97.909 - NON-PRS CHRONIC ULC UNSP PRT OF UNSP LOW LEG W UNSP SEVERITY (3) MRSA (methicillin resistant Staphylococcus aureus) infection Code(s): A49.02 - METHICILLIN RESIS STAPH INFECTION, UNSP SITE (4) Morbid obesity Code(s): E66.01 - MORBID (SEVERE) OBESITY DUE TO EXCESS CALORIES plan changed abx to zyox continue zosyn patient can be switched to augmentin on discharge will d/w the team
[2020-02-29 08:25] LABS: BILIRUBIN,TOTAL 0.4 mg/dL (0.2-1)
[2020-02-29] MEDS ORDERED: PT OWN MED DRAWER 7, Y5N ONE ×5 (09:16→20:44)
[2020-02-29] MEDS: ENOXAPARIN NA (PORCINE) 40 MG/0.4 ML DISP.SYRIN SQ SCH (09:36)
[2020-02-29] MEDS: ASPIRIN 81 MG CHEWABLE TABLETS PO SCH (09:36)
[2020-02-29] MEDS: ENALAPRIL MALEATE 5 MG TABLET (FP) PO SCH (09:36)
[2020-02-29] MEDS: COLLAGENASE CLOSTRIDIUM HIST. 30 GRAMS TUBE TP SCH (09:39)
[2020-02-29] MEDS: LINEZOLID 600 MG TABLET (RESTRICTED TO ID) PO SCH ×2 (11:16→22:12)
--- NOTE | 2020-02-29 14:39 | PN ---
Progress Note (short form) - Note Progress Note: anxious does not want deep debridement Vital Signs - 24 hr 02/28/20 02/28/20 02/28/20 18:43 20:36 21:47 Temperature 98.0 F 97.6 F Pulse Rate 79 81 Respiratory 18 18 Rate Blood Pressure 104/74 123/78 O2 Sat by Pulse 96 97 98 Oximetry (%) 02/29/20 02/29/20 02/29/20 05:26 09:00 11:00 Temperature 97.6 F 98 F Pulse Rate 66 72 Respiratory 18 18 18 Rate Blood Pressure 126/74 127/70 O2 Sat by Pulse 96 97 97 Oximetry (%) 02/29/20 14:36 Temperature 98.3 F Pulse Rate 74 Respiratory 18 Rate Blood Pressure 122/67 O2 Sat by Pulse 96 Oximetry (%) Current Medications Generic Name Dose Route Start Last Admin Trade Name Freq PRN Reason Stop Dose Admin Aspirin 81 mg 02/24/20 10:00 02/29/20 09:36 Asa - PO 81 mg DAILY CRISTINE Administration Atorvastatin Calcium 20 mg 02/23/20 22:00 02/28/20 21:26 Lipitor - PO 20 mg HS CRISTINE Administration Collagenase 1 applic 02/25/20 13:15 02/29/20 09:39 Santyl - TP 1 applic DAILY CRISTINE Administration Protocol Enalapril Maleate 5 mg 02/24/20 10:00 02/29/20 09:36 Vasotec - PO 5 mg DAILY CRISTINE Administration Enoxaparin Sodium 40 mg 02/23/20 19:30 02/29/20 09:36 Lovenox - SQ 40 mg DAILY CRISTINE Administration Furosemide 40 mg 02/23/20 20:00 02/29/20 06:07 Lasix - PO Not Given BIDLASIX CRISTINE Gabapentin 300 mg 02/23/20 22:00 02/29/20 06:07 Neurontin - PO 300 mg TID CRISTINE Administration Piperacillin Sod/Tazobactam 50 mls @ 100 mls/hr 02/26/20 14:30 02/29/20 09:36 Sod 3.375 gm/ Dextrose IVPB 100 mls/hr Q8H-IV CRISTINE Administration Protocol Insulin Aspart 1 vial 02/24/20 07:00 02/29/20 06:15 Novolog Vial Sliding Scale - SQ Not Given BIDAC CRISTINE Protocol Insulin Aspart 20 units 02/27/20 16:30 02/29/20 06:07 Novolog Mix 70/30 Vial SQ 20 units BIDAC CRISTINE Administration Linezolid 600 mg 02/29/20 10:00 02/29/20 11:16 Zyvox (Restricted To Id) - PO 600 mg BID CRISTINE Administration Oxycodone HCl 5 mg 02/24/20 16:40 02/27/20 04:01 Roxicodone - PO 5 mg Q6H PRN Administration PAIN LEVEL 5-10 Laboratory Results - last 24 hr 02/28/20 02/28/20 02/29/20 15:10 16:43 06:12 WBC RBC Hgb Hct MCV MCH MCHC RDW Plt Count MPV Sodium Potassium Chloride Carbon Dioxide Anion Gap BUN Creatinine Est GFR (CKD-EPI)AfAm Est GFR (CKD-EPI)NonAf POC Glucometer 181 137 Random Glucose Calcium Total Bilirubin AST ALT Alkaline Phosphatase Total Protein Albumin Vancomycin Pre-Dose 3.6 L 02/29/20 02/29/20 07:10 07:10 WBC 6.7 RBC 4.60 Hgb 13.6 Hct 41.3 MCV 89.7 MCH 29.6 MCHC 33.0 RDW 14.0 Plt Count 234 MPV 8.3 Sodium 142 Potassium 4.0 Chloride 109 H Carbon Dioxide 29 Anion Gap 4 L BUN 15.8 Creatinine 0.7 Est GFR (CKD-EPI)AfAm 109.91 Est GFR (CKD-EPI)NonAf 94.84 POC Glucometer Random Glucose 129 H Calcium 8.6 Total Bilirubin 0.4 AST 15 ALT 38 Alkaline Phosphatase 68 Total Protein 5.9 L Albumin 2.9 L Vancomycin Pre-Dose S1 S2 RRR Lungs decreased Abd- soft, NT edema+ right leg-- ulcer+, slough worse+ A/P IV antibiotics per ID on po Zyvox also dc Vanco per ID pain control repeat wound cultures noted santyl daily Called Dr Becerril for follow up -- wound appears worse DVT prophylaxis Problem List - Problems (1) Non-healing wound of lower extremity Code(s): S81.809A - UNSPECIFIED OPEN WOUND, UNSPECIFIED LOWER LEG, INIT ENCNTR Qualifiers: Encounter type: subsequent encounter Laterality: right Qualified Code(s): S81.801D - Unspecified open wound, right lower leg, subsequent encounter (2) Diabetic leg 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 Code(s): E10.622 - TYPE 1 DIABETES MELLITUS WITH OTHER SKIN ULCER; L97.909 - NON-PRS CHRONIC ULC UNSP PRT OF UNSP LOW LEG W UNSP SEVERITY (3) Insulin dependent diabetes mellitus Code(s): E11.9 - TYPE 2 DIABETES MELLITUS WITHOUT COMPLICATIONS; Z79.4 - SENIOR CARE (CURRENT) USE OF INSULIN (4) Morbid obesity Code(s): E66.01 - MORBID (SEVERE) OBESITY DUE TO EXCESS CALORIES
[2020-02-29] MEDS: ATORVASTATIN CA 20 MG TABLET (FP) PO SCH (21:37)
[2020-03-01] MEDS ORDERED: PIPERACILLIN/TAZOBACTAM 3.375 GM VIAL IVPB ONE ×2 (00:42→09:36)
[2020-03-01] MEDS ORDERED: DEXTROSE 5%-WATER - 50 ML IVPB ONE ×2 (00:42→09:37)
[2020-03-01] MEDS: PIPERACILLIN/TAZOB 3.375 GM 3.375 GM in DEXTROSE 5%-WATER - 50 ML IVPB SCH ×2 (01:03→09:53)
[2020-03-01] MEDS: FUROSEMIDE 40 MG TABLET (FP) PO SCH ×2 (06:01→13:26)
[2020-03-01] MEDS: INSULIN (NOVOLOG MIX 70/30) 100 UNITS/ML MDV SQ SCH (06:02)
[2020-03-01] MEDS: GABAPENTIN 300 MG CAPSULE PO SCH ×2 (06:02→13:26)
[2020-03-01] MEDS: INSULIN SLIDING SCALE (NOVOLOG) 1 VIAL SQ SCH (06:09)
[2020-03-01] MEDS: ENOXAPARIN NA (PORCINE) 40 MG/0.4 ML DISP.SYRIN SQ SCH (09:53)
[2020-03-01] MEDS: ASPIRIN 81 MG CHEWABLE TABLETS PO SCH (09:53)
[2020-03-01] MEDS: ENALAPRIL MALEATE 5 MG TABLET (FP) PO SCH (09:53)
[2020-03-01] MEDS: LINEZOLID 600 MG TABLET (RESTRICTED TO ID) PO SCH (10:21)
--- NOTE | 2020-03-01 10:26 | PN ---
Progress Note, Physician History of Present Illness: stable no new issues - Current Medication List Current Medications: Active Medications Aspirin (Asa -) 81 mg PO DAILY [facility] Last Admin: 03/01/20 09:53 Dose: 81 mg Documented by: Atorvastatin Calcium (Lipitor -) 20 mg PO HS [facility] Last Admin: 02/29/20 21:37 Dose: 20 mg Documented by: Collagenase (Santyl -) 1 applic TP DAILY [facility]; Protocol Last Admin: 02/29/20 09:39 Dose: 1 applic Documented by: Enalapril Maleate (Vasotec -) 5 mg PO DAILY [facility] Last Admin: 03/01/20 09:53 Dose: 5 mg Documented by: Enoxaparin Sodium (Lovenox -) 40 mg SQ DAILY [facility] Last Admin: 03/01/20 09:53 Dose: 40 mg Documented by: Furosemide (Lasix -) 40 mg PO BIDLASIX [facility] Last Admin: 03/01/20 06:01 Dose: Not Given Documented by: Gabapentin (Neurontin -) 300 mg PO TID [facility] Last Admin: 03/01/20 06:02 Dose: 300 mg Documented by: Piperacillin Sod/Tazobactam (Sod 3.375 gm/ Dextrose) 50 mls @ 100 mls/hr IVPB Q8H-IV [facility]; Protocol Last Admin: 03/01/20 09:53 Dose: 100 mls/hr Documented by: Insulin Aspart (Novolog Vial Sliding Scale -) 1 vial SQ BIDAC [facility]; Protocol Last Admin: 03/01/20 06:09 Dose: Not Given Documented by: Insulin Aspart (Novolog Mix 70/30 Vial) 20 units SQ BIDAC [facility] Last Admin: 03/01/20 06:02 Dose: 20 units Documented by: Linezolid (Zyvox (Restricted To Id) -) 600 mg PO BID [facility] Last Admin: 03/01/20 10:21 Dose: 600 mg Documented by: Oxycodone HCl (Roxicodone -) 5 mg PO Q6H PRN PRN Reason: PAIN LEVEL 5-10 Last Admin: 02/27/20 04:01 Dose: 5 mg Documented by: - Objective Vital Signs: Vital Signs Temperature 98.0 F 03/01/20 10:00 Pulse Rate 71 03/01/20 10:00 Respiratory Rate 19 03/01/20 10:00 Blood Pressure 148/73 03/01/20 10:00 O2 Sat by Pulse Oximetry (%) 95 03/01/20 10:00 Constitutional: Yes: No Distress, Calm HENT: Yes: Atraumatic Neck: Yes: Supple, Trachea Midline Cardiovascular: Yes: S1, S2 Respiratory: Yes: Regular, CTA Bilaterally Gastrointestinal: Yes: Normal Bowel Sounds, Soft Musculoskeletal: Yes: Other Extremities: Yes: Other Neurological: Yes: Alert, Oriented Labs: CBC, BMP 02/29/20 07:10 02/29/20 07:10 Assessment/Plan Problem List - Problems (1) Non-healing wound of lower extremity Code(s): S81.809A - UNSPECIFIED OPEN WOUND, UNSPECIFIED LOWER LEG, INIT ENCNTR Qualifiers: Encounter type: subsequent encounter Laterality: right Qualified Code(s): S81.801D - Unspecified open wound, right lower leg, subsequent encounter (2) Diabetic leg 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 Code(s): E10.622 - TYPE 1 DIABETES MELLITUS WITH OTHER SKIN ULCER; L97.909 - NON-PRS CHRONIC ULC UNSP PRT OF UNSP LOW LEG W UNSP SEVERITY (3) MRSA (methicillin resistant Staphylococcus aureus) infection Code(s): A49.02 - METHICILLIN RESIS STAPH INFECTION, UNSP SITE (4) Morbid obesity Code(s): E66.01 - MORBID (SEVERE) OBESITY DUE TO EXCESS CALORIES plan zyox and augmentin on discharge for 5 more days
[2020-03-01] MEDS: COLLAGENASE CLOSTRIDIUM HIST. 30 GRAMS TUBE TP SCH (10:45)
--- NOTE | 2020-03-01 11:29 | DS ---
Physical Examination Vital Signs: Vital Signs Temperature 98.0 F 03/01/20 10:00 Pulse Rate 71 03/01/20 10:00 Respiratory Rate 19 03/01/20 10:00 Blood Pressure 148/73 03/01/20 10:00 O2 Sat by Pulse Oximetry (%) 95 03/01/20 10:00 Findings/Remarks: Awake/ Comfortable no distress afebrile pain ok All f/u noted Constitutional: Yes: No Distress, Obese Neck: Yes: Supple Cardiovascular: Yes: Regular Rate and Rhythm Respiratory: Yes: CTA Bilaterally Gastrointestinal: Yes: Abdomen, Obese Wound/Incision: Yes: Dressing Dry and Intact Neurological: Yes: Alert Labs: CBC, BMP 02/29/20 07:10 02/29/20 07:10 Discharge Summary Problems reviewed: Yes Reason For Visit: NON HEALING WOUND LOWER EXTREMITY Current Active Problems Non-healing wound of lower extremity (Acute) Hospital Course: Admitted for NHUlcer -- right lower extremity Treated with abx d/w i/d and Dr. Schaeffer today d/c on po abx x 5 days pt will be following in w/c monitor bgm and pt will be adjusting Insulin as needed meds reconcilled MEds prescribed as needed f/u in office pt in agreement Local care Condition: Improved - Instructions Referrals: Jermaine Velasco MD [Primary Care Provider] - Disposition: HOME - Home Medications Comprehensive Discharge Medication List: Ambulatory Orders Gabapentin [Neurontin -] 300 mg PO TID 12/09/18 Insulin Lispro Protamin/Lispro [Humalog Mix 75-25 Kwikpen] 30 unit SQ BID 12/12/18 Magnesium Oxide [Magnesium] 400 mg PO ASDIR 12/12/18 [place]-3S/Dha/Epa/Fish Oil/D3 [[place]-3 + D Softgel] 1 each PO DAILY 12/12/18 Liraglutide [Victoza -] 1.8 mg SQ DAILY@0700 05/19/19 Acetaminophen [Tylenol .Regular Strength -] 650 mg PO Q4H PRN tablet 05/22/19 Insulin Sliding Scale [Novolog Vial Sliding Scale -] 1 vial SQ BIDAC units 05/22/19 Aspirin 81 mg PO DAILY 01/05/20 Atorvastatin Ca [Lipitor] 0 mg PO HS 01/05/20 Enalapril Maleate [Vasotec] 5 mg PO DAILY 01/05/20 Furosemide [Lasix -] 40 mg PO BID 01/05/20 Metformin HCl [Glucophage] 500 mg PO BID 01/05/20 Multivitamin 1 each PO DAILY 01/05/20 Linezolid 600 mg PO BID #14 tablet 01/13/20 oxyCODONE HCL [Roxicodone -] 10 mg PO Q12H PRN #15 tablet MDD 2 01/13/20 Amoxicillin/Potassium Clav [Augmentin 875-125 Tablet] 1 each PO BID #10 tablet 03/01/20 Collagenase Clostridium Hist. [Santyl -] 1 applic TP DAILY tube 03/01/20 Linezolid [Zyvox (Restricted To Id) -] 600 mg PO BID #10 tablet 03/01/20
--- NOTE | 2020-03-01 14:04 | PN ---
Progress Note (short form) - Note Progress Note: Vascular surgery Pt seen and examined. Dressing changed. Wound looks good. Some slough. Cont santyl daily. Pt going home on antibiotics. Pt coming to wound care center next wednesday. Toney Becerril DO
[2020-03-01 14:22] VITALS: BP 130/84; PULSE 87; TEMP 97.3
== END 2020-03-01 15:43 | disposition home or self-care (01) | DRG 638 ==
LOC: JER 16:10 → SUPCPDRO 16:10 → JERBED 19:44 → J6S 23:49
PROVIDERS: ADMIT Internal Medicine; ATTEND Internal Medicine
DX: E11.622 Type 2 diabetes mellitus with other skin ulcer (principal); L97.919 Non-pressure chronic ulcer of unspecified part of right lower leg with unspecified severity; L03.115 Cellulitis of right lower limb; L97.819 Non-pressure chronic ulcer of other part of right lower leg with unspecified severity; Z68.45 Body mass index [BMI] 70 or greater, adult; I10 Essential (primary) hypertension; E11.65 Type 2 diabetes mellitus with hyperglycemia; E78.5 Hyperlipidemia, unspecified; A49.02 Methicillin resistant Staphylococcus aureus infection, unspecified site; E66.01 Morbid (severe) obesity due to excess calories
CPT/HCPCS: 36415; 73630-TC-RT-FY; 80048; 80053; 82962; 83036; 85025; 85027; 85651; 86140; 87040; 87070; 87077; 87205; 99285-25; G0480; J0131; U0003